=== PATIENT | male | born 1975 | race Caucasian/White ===

== ENCOUNTER 2019-12-31 09:04 | Emergency (ER) | payer OTHER, SELFPAY ==
--- NOTE | ~2019-12-31 | CT_ITS ---
EXAMINATION: CT abdomen pelvis wo con DATE: 12/31/2019 09:51 INDICATION: Low abdominal pain. TECHNIQUE: Computed tomography (CT) of the abdomen and pelvis was performed without intravenous contr ast. Automated exposure control and iterative reconstruction technique were employed. The dose-length product was 1285.31 mGy-cm. COMPARISON: CT abdomen and pelvis 07/14/2019 FINDINGS: The visualized portions of the lung bases demonstrate mild atelectasis. A calcified left ovidio ng nodule is consistent with old granulomatous disease. No pleural effusion. The heart size is normal . No pericardial effusion. There is wall thickening of the distal esophagus. The liver, gallbladder, spleen, pancreas, and adrenal glands are normal. There is a 3.9 cm cyst in left kidney. There are 4 s tones in right kidney measuring up to 3 mm. There is mild right hydronephrosis and hydroureter. There is a 5 mm stone in distal right ureter. There are two 2 mm stones in left kidney. There is an umbili kaiser hernia containing fat. There is prominent fat in the inguinal canals that may be small hernias. T here are scattered diverticula in the colon. There is wall thickening of the sigmoid colon with inter silvino improvement. There are no dilated loops of bowel. The appendix is normal. There are no pathologic ally enlarged lymph nodes. There is no free intraperitoneal fluid. There is mild thoracolumbar spondy losis. IMPRESSION: 1. 5 mm stone in distal right ureter with mild right hydronephrosis and hydroureter. 2. Bilateral nonobstructing kidney stones. 3. Chronic mild sigmoid diverticulitis with interval improvement. 4. Wall thickening of the distal esophagus, likely esophagitis. Reviewed, dictated and finalized at location A. IMPRESSION: 1. 5 mm stone in distal right ureter with mild right hydronephrosis and hydrour eter. 2. Bilateral nonobstructing kidney stones. 3. Chronic mild sigmoid diverticulitis with interval improvement. 4. Wall thickening of the distal esophagus, likely esophagitis.
[2019-12-31] MEDS: MORPHINE SULFATE 4 MG/ML INJ IV PUSH (09:25)
[2019-12-31 09:26] VITALS: BP 150/88; PULSE 80; RESP 20; TEMP 36.4; O2SAT 98
--- NOTE | 2019-12-31 09:30 | ECG_ITS ---
Measurements Intervals [place] Rate: 60 P: 46 ID: [id number] QRS: -16 QRSD: 125 T: 37 QT: 428 QTc: 430 Interpretive Statements SINUS RHYTHM RSR' IN V1 OR V2, CONSIDER RIGHT VENTRICULAR HYPERTROPHY OR RIGHT VCD BORDERLINE ECG Electronically Signed On 12-31-2019 15:25:43 CDT by Carl Alba D.O.
--- NOTE | 2019-12-31 09:40 | ED.ABDPAIN ---
HPI - Abdominal Pain General Chief Complaint: Abdominal Pain Stated Complaint: abdominal pain Source: patient Mode of arrival: ambulatory History of Present Illness HPI narrative: This is a 44-year-old male presents with a abdominal pain that started around 6 in the morning as constant right lower quadrant with no radiation, no nausea or vomiting no fever or chills. Has a history of diverticulitis with abscess and was seen at [facility] and had surgery involved for diverticulitis with abscess formation. Currently there is no chest pain no shortness of breath no diarrhea or constipation. Patient has a past medical history of GERD diverticulitis and and passing mentioned history of kidney stones. MD elicited complaint: abdominal pain Pertinent past history: diverticulitis Onset (ago): hour(s) Pain Consistency: constant Location: RLQ Severity: severe Pain scale (0-10): 10 Quality: aching Radiation: RLQ Migration to: no migration Exacerbating factors: nothing Relieving factors: nothing Related Data Allergies Allergy/AdvReac Type Severity Reaction Status Date / Time Contrast Media Allergy Unknown Swelling Uncoded 08/04/19 10:51 Shrimp Allergy Unknown LIPS SWELL Uncoded 07/25/19 09:31 Review of Systems Review of Systems: All systems reviewed & are unremarkable except as noted in HPI and below PMFSH Past Medical History Medical History Diverticulitis of large intestine with perforation and abscess without bleeding GERD (gastroesophageal reflux disease) Hypertension Previously on Lisinopril but no longer taking hyperventilates - lifestyle modification Surgical History Surgical History History of esophagogastroduodenoscopy (EGD) Family History Family History Mother Hypertension Asthma Father Hypertension Family history of elevated blood lipids Carcinoma of colon Family history of diabetes mellitus in first degree relative Social History Social History Smoking status: Never smoker Smokeless tobacco user: chewing tobacco Alcohol intake: never Substance use: never 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 [email or web address] Gender identity (if verbalized by the patient): Male Exam Const: General: no acute distress and alert Orientation/consciousness: patient oriented x3 HENMT: Head: normal to inspection Eyes: Conjunctivae: conjunctivae normal Pupils: Equal, round and reactive pupils present Neck: Neck: normal visual inspection Chest: Chest palpation & inspection: normal inspection of the chest Resp: Effort & Inspection: normal respiratory effort Auscultation: clear to auscultation bilaterally Cardio: Rate: regular rate Rhythm: regular rhythm GI: GI Palp: Yes Soft to palpation and Yes Tenderness to palpation present (GI) Auscultation: normal bowel sounds : Male General Exam: Yes normal external exam Testes: Testes normal Skin: General skin exam: normal color Rashes: no rashes Neuro: General: patient oriented x3, moves all extremities, no meningeal signs and no focal motor deficits Extrem: General: normal to inspection Psych: Appearance: grossly normal Mental Status: mental status grossly normal Thought content: Yes Normal thought content present Course Vital Signs Vital signs: Vital Signs Temperature 36.4 C 12/31/19 09:26 Pulse Rate 80 12/31/19 09:26 Respiratory Rate 20 12/31/19 09:26 Blood Pressure 150/88 H 12/31/19 09:26 Pulse Oximetry 98 12/31/19 09:26 Temperature 36.4 C 12/31/19 09:26 Pulse Rate 80 12/31/19 09:26 Respiratory Rate 20 12/31/19 09:26 Blood Pressure 150/88 H 12/31/19 09:26 Pulse Oximetry 98 12/31/19 09:26 MDM - Abdominal Pain ECG Data EKG #1: ECG completion date: 0
[2019-12-31 09:45] LABS: Hematocrit 43.8 % (40.0-54.0); Hemoglobin 15.5 g/dL (14.0-18.0); Mean Corpuscular HGB Conc 35.4 g/dL (32.0-36.0); Mean Corpuscular Hemoglobin 31.2 pg (27.0-31.0); Mean Corpuscular Volume 88.1 fL (78.0-102.0); Mean Platelet Volume 10.8 fl (8.7-11.0); Platelet Count Result 185 K/mm3 (150-420); Red Blood Count 4.97 M/mm3 (4.70-6.10); Red Cell Distribution Width 12.5 % (11.6-14.4); White Blood Count 6.6 K/mm3 (4.8-10.8)
[2019-12-31] MEDS: SODIUM CHLORIDE 0.9% IV 1,000 ML 999 ML IV CONT (09:51)
[2019-12-31 10:01] VITALS: BP 140/80; PULSE 76; RESP 20
[2019-12-31 10:02] LABS: Alanine Aminotransferase 35 U/L (16-63); Albumin Level 4.2 g/dL (3.4-5.0); Alkaline Phosphatase 68 U/L (46-116); Anion Gap 12.2 mmol/L (7-16); Aspartate Amino Transferase 18 U/L (15-37); Bilirubin,Total 0.5 mg/dL (0.00-1.00); Blood Urea Nitrogen 16 mg/dL (7-18); Calcium 9.2 mg/dL (8.5-10.1); Carbon Dioxide 26 mmol/L (21-32); Chloride 104 mmol/L (98-108); Estimated CRCL calculation 73 ml/min; Estimated Glomerular Filt Rate > 60; Glucose 139 mg/dL (70-99); Lactic Acid 2.3 mmol/L (0.4-2.0); Lipase 139 U/L (73-393); Osmolality Calculated 289 mOsm/kg (285-295); Potassium 4.2 mmol/L (3.5-5.1); Sodium 138 mmol/L (136-145); Total Protein 7.4 g/dL (6.4-8.2); Troponin I < 0.02 ng/mL (0.00-0.056)
[2019-12-31 10:07] LABS: Add Urine Microscopic? YES; Appearance Urine Clear (Clear); Bilirubin Urine Negative (Negative); Blood Urine 3+ (Negative); Color Urine Yellow (Yellow); Glucose Urine UA Negative (Negative); Ketones Urine Negative (Negative); Leukocyte Esterase Ur Negative LEU/UL (Negative); Nitrate Urine Negative (Negative); Protein Urine Negative (Negative); Specific Grav Ur >= 1.030 (1.010-1.020); Urobilinogen Urine 0.2 mg/dL (0.2-1.0)
[2019-12-31] MEDS: KETOROLAC 30 MG/ML VIAL (*BKC) IV PUSH (10:18)
[2019-12-31 10:19] LABS: Bacteria Urine 1+ /hpf; RBC Urine 21-50 /hpf (0-2); Squamous Epithelial Cell Urine None seen /hpf (Few); WBC Urine 0-3 /hpf (0-3)
--- NOTE | 2019-12-31 10:19 | PC.NURSE ---
toradol IVP given per mD orders, patient sleeping
[2019-12-31 10:20] LABS: Mucus Urine Moderate /lpf
[2019-12-31 10:30] VITALS: BP 130/66; PULSE 79; RESP 22; TEMP 36.4; O2SAT 100
== END 2019-12-31 10:32 | disposition home or self-care (01) ==
PROVIDERS: Emergency Provider Emergency Medicine; PCP Family Medicine
DX: N20.1 Calculus of ureter (principal)
CPT/HCPCS: 36415; 74176; 80053; 81001; 83605; 83690; 84484; 85027; 93005; 96361; 96374; 96375; 99284; J1885; J2270; J7030

== ENCOUNTER 2020-09-12 11:13 | Outpatient (CLI) | payer OTHER, SELFPAY ==
[2020-09-12 11:48] LABS: Basophils Absolute Auto 0.1 K/mm3 (0.0-0.1); Basophils Percent Auto 0.8 % (0.2-1.2); Eosinophils Absolute Auto 0.8 K/mm3 (0-0.3); Hematocrit 48.3 % (42.0-52.0); Hemoglobin 16.9 g/dL (14.0-18.0); Immature Granulocyte Absolute 0.02 K/mm3 (0.00-0.031); Immature Granulocyte Percent A 0.3 % (0-0.5); Lymphocytes Absolute Auto 1.71 K/mm3 (0.9-3.2); Lymphocytes Percent Auto 28.2 % (18.3-44.2); Mean Corpuscular Hemoglobin 31.4 pg (26-34); Mean Corpuscular Volume 89.8 fl (80-100); Mean Platelet Volume 10.8 fl (7.4-10.4); Monocytes Absolute Auto 0.4 K/mm3 (0.1-0.6); Monocytes Percent Auto 5.8 % (2.6-8.5); Neutrophils Absolute Auto 3.1 K/mm3 (1.3-6.7); Neutrophils Percent Auto 51.9 % (45.5-73.1); Platelet Count Result 190 k/mm3 (150-375); Red Blood Count 5.38 M/mm3 (4.6-6.20); Red Cell Distribution Width 12.8 % (11.5-14.5); White Blood Count 6.1 K/mm3 (4.5-10.0)
[2020-09-12 12:02] LABS: Alanine Aminotransferase 46 U/L (4-50); Albumin Level 4.5 g/dL (3.5-5.1); Alkaline Phosphatase 65 U/L (38-126); Anion Gap 7 mmol/L (8-16); Aspartate Amino Transferase 27 U/L (17-59); Bilirubin,Total 0.7 mg/dL (0.2-1.3); Blood Urea Nitrogen 17 mg/dL (9-20); Calcium 10.3 mg/dL (8.4-10.2); Carbon Dioxide 34 mmol/L (22-30); Chloride 100 mmol/L (98-107); Cholesterol 186 mg/dL (0-200); Estimated Glomerular Filt Rate > 60; Glucose 99 mg/dL (75-110); HDL Direct 29 mg/dL; Magnesium 2.2 mg/dL (1.6-2.3); Potassium 4.5 mmol/L (3.4-5.0); Sodium 141 mmol/L (137-145); Triglycerides 281 mg/dL (<150); Uric Acid 8.3 mg/dL (3.5-8.5)
[2020-09-12 12:13] LABS: LDL Cholesterol Direct 88 mg/dL
[2020-09-12 12:49] LABS: Hemoglobin A1C 5.3 % (<5.7)
== END 2020-09-12 11:14 | disposition home or self-care (01) ==
LOC: ANHLAB 11:15
PROVIDERS: PCP Family Medicine; Visit Provider Family Medicine
DX: N20.0 Calculus of kidney (principal); R73.9 Hyperglycemia, unspecified; I10 Essential (primary) hypertension; E78.2 Mixed hyperlipidemia; E79.0 Hyperuricemia without signs of inflammatory arthritis and tophaceous disease
CPT/HCPCS: 36415; 80053; 80061; 83036; 83735; 84550; 85025

== ENCOUNTER → 2021-01-12 01:16 | Outpatient (CLI) | payer OTHER, SELFPAY ==
[2021-01-13 00:40] LABS: SARS-CoV-2 RNA PCR Negative
== END ==
PROVIDERS: PCP Physician Assistant; Visit Provider Surgery
DX: Z01.812 Encounter for preprocedural laboratory examination (principal); Z20.822 Contact with and (suspected) exposure to COVID-19
CPT/HCPCS: C9803; U0003; U0005

== ENCOUNTER 2021-01-12 09:22 | Outpatient (CLI) | payer OTHER, SELFPAY | END 2021-01-12 09:23 | disposition home or self-care (01) | PROVIDERS: PCP Family Medicine; Visit Provider Anesthesiology | DX: K42.9 Umbilical hernia without obstruction or gangrene (principal); Z01.818 Encounter for other preprocedural examination | CPT/HCPCS: 36415; 86850; 86900; 86901 ==

== ENCOUNTER 2021-01-15 03:06 | Day surgery (SDC) | payer OTHER, SELFPAY ==
[2021-01-08 14:36] VITALS: BMI 36.8
[2021-01-15] VITALS (8 sets, daily range): BP systolic 109–142; BP diastolic 69–84; PULSE 57–81; RESP 12–18; TEMP 36.7–36.9; O2SAT 94–98
[2021-01-15] MEDS: LACTATED RINGERS 1,000 ML 30 ML IV CONT ×2 (06:40→10:06)
[2021-01-15] MEDS: KETOROLAC 15 MG/ML VIAL (*BKC) IV PUSH (06:46)
[2021-01-15] MEDS: ACETAMINOPHEN 500 MG TABLET 1000 MG PO (06:46)
--- NOTE | 2021-01-15 07:24 | WPDANESEPPF ---
Anes - Initial Pre Proc Eval Procedure: Operation Date: 01/15/21 08:30 Proposed Procedures p Laparoscopic Umbilical Hernia Repair With Mesh, Davinci Assisted - Enmanuel Swann DO Date/Time: 01/15/21 07:24 Surgeon: Enmanuel Swann DO Pre Op Diagnosis: umbilical hernia Patient Data Age: 45 Gender: M Height: 1.8 m Weight: 120 kg Allergies Allergy/AdvReac Type Severity Reaction Status Date / Time Shrimp Allergy Intermediate LIPS SWELL Uncoded 01/08/21 15:19 Contrast Media Allergy Mild Swelling Uncoded 01/08/21 15:19 Home Medications Medication Instructions Recorded Confirmed Type amlodipine 5 mg tablet 5 mg PO DAILY #90 tablet 11/19/20 01/08/21 Rx losartan 50 mg tablet 50 mg PO DAILY #90 tablet 11/19/20 01/08/21 Rx Patient hx anesthesia problems: none Family hx anesthesia problems: none PMFSH Past Medical History Medical History COVID-19 virus detected Diverticulitis of large intestine with perforation and abscess without bleeding GERD (gastroesophageal reflux disease) Gout History of kidney stones Hypertension Previously on Lisinopril but no longer taking hyperventilates - lifestyle modification Surgical History Surgical History History of colonoscopy History of esophagogastroduodenoscopy (EGD) Family History Family History Mother Hypertension Asthma Father Hypertension Family history of elevated blood lipids Carcinoma of colon Diabetes mellitus Grandparent Cerebrovascular accident Cancer Other Hypertension Social History Social History Social History: Tobacco type: smokeless tobacco Smokeless tobacco user: chewing tobacco Second hand tobacco smoke exposure: No Additional smoking assessment comments: chews tobacco x20yrs Alcohol intake: former Substance use: never Substance use type: does not use Living arrangements: with family 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 [employer] Gender identity (if verbalized by the patient): Male Sexual Orientation (if Verbalized by the Patient): Straight or Heterosexual Spiritual care concerns: No Anes - Eval Final PreProcedure Day of Procedure 01/15/21 07:24 Patient weight: obese Heart: regular rate and rhythm Lungs: clear to auscultation and normal air movement Airway: Mallampati scale class II Neurological: alert and oriented Last oral intake: >/= 8 hours ASA classification: III Emergent: no Anesthetic plan: proceed Anesthesia type and monitoring: general ETT and standard monitoring Informed Consent: The patient's anesthetic plan and its attendant risks and benefits were discussed with the patient/family/POA. Questions were solicited and answers provided to the satisfaction of the patient/family/POA.
--- NOTE | 2021-01-15 07:35 | WPDHPUPDATE1 ---
History and Physical Update Update Date/Time: 01/15/21 07:35 History and Physical has been reviewed, including an updated exam of the patient. There are NO changes in the patient's condition. Risks, benefits, and alternatives have been discussed and questions answered. Patient agrees to proceed with procedure.
[2021-01-15] MEDS: ceFAZolin 3 GM/D5W 100 ML 100 ML IVPB (07:48)
--- NOTE | 2021-01-15 09:22 | SUR.OPER ---
SYMBOTEX MESH UMBILICAL [id number], EXP 2025-05-21.
--- NOTE | 2021-01-15 10:00 | PM.PROC ---
Procedure Note - Detailed Date of procedure: 01/15/21 Pre-op diagnosis: umbilical hernia Post-op diagnosis: same Procedure performed: Laparoscopic umbilical hernia repair with Symbotex mesh, da Gurjit assisted Description of procedure: Procedure as well as risks, benefits, and alternatives were discussed with the patient. Written consent was obtained and placed in chart prior to procedure. Patient was brought back to surgical suite. He was placed supine on operating table. Time-out was done to confirm patient and procedure. He was then intubated by the anesthesia department. A bump was placed under his left hip, and the bed was flexed slightly to extend the space between his costal margin and iliac crest. His abdomen was prepped and draped in sterile fashion using chlorhexidine prep. A 5 millimeter incision was made in the left upper quadrant, and a 5 millimeter Optiview trocar was advanced through the abdominal layers under direct visualization. Once inside the abdominal cavity, carbon dioxide insufflation was used to create a pneumoperitoneum. His abdomen was inspected. An 8 millimeter incision was made in the left lower quadrant, and an 8 millimeter robotic trocar was placed under direct visualization. Another 8 millimeter incision was made in the left lateral abdomen, and an 8 millimeter robotic trocar was placed under direct visualization. Exparel was infiltrated along the lateral abdominal garcia to perform a transversus abdominis plane block bilaterally. The 5 millimeter port was removed, the incision was extended to 12 millimeters, and a 12 millimeter air seal port was placed under direct visualization. A Marshal-Damon cone was also used to place an 0-Vicryl simple interrupted suture at this trocar site. The robotic arms were brought up to the patient's bedside and secured to the ports. The camera and instruments were inserted, and I then moved over to the robotic console and took control of the camera and instruments. After careful thorough inspection of the abdominal cavity, I began my dissection at the hernia. A preperitoneal plane was dissected along the left lateral abdomen using scissors with electrocautery. The planning was continued towards the midline and then this was extended to the right lateral abdominal wall. The hernia sac was reduced along with the preperitoneal plane and a wide enough pocket was created for mesh placement. I then measured the hernia size. The hernia measured 2 cm x 2 cm. The fascia was closed using an 0-Stratafix running suture in a vertical fashion. A Symbotex 15cm x 10cm mesh was then placed within the preperitoneal pocket. This was oriented vertically with the mesh centered on the hernia defect. The mesh was then secured at the 4 corners using 2 0 Vicryl simple interrupted sutures. The repair was inspected, and one final inspection was made around the abdominal cavity. The peritoneum was then closed over the mesh using 3 0 V lock running absorbable suture. The robotic instruments were then removed, and the robotic arms were disengaged from the trocars. The ports were then removed under direct visualization, the camera was removed, and the pneumoperitoneum was released. The 0 Vicryl transfascial suture was tied down. The skin of the incisions was then approximated using 4-0 Monocryl subcuticular suture. Exofin glue was then applied on top. The patient was then awakened from anesthesia, extubated, and transferred to recovery. Anesthesia: GETA and local (Exparel) Surgeon: Enmanuel Swann DO Estimated blood loss (mL): 5 Pathology: none sent Complications: No immediate complications Condition: stable Disposition: same day Findings: Gelacio is a 45 y/o male who presents with an umbilical bulge. His symptoms started about 2 months ago. He reports experiencing pain that is constant but is worse after he's been working all day. the area becomes red, swollen, and more painful. He states the bulge reduces
[2021-01-15] MEDS: fentaNYL CITRATE INJ (*CRX) 100 MCG/2 ML VIAL 25 MCG IV PUSH ×2 (11:02→11:05)
[2021-01-15] MEDS: oxyCODONE HCL (*CRX) 5 MG TAB IR PO (11:40)
== END 2021-01-15 12:15 | disposition home or self-care (01) ==
PROVIDERS: PCP Family Medicine; Visit Provider Surgery
PROC: (CPT 49652; principal; 2021-01-15 08:30)
DX: K42.9 Umbilical hernia without obstruction or gangrene (principal); I10 Essential (primary) hypertension; E66.9 Obesity, unspecified; Z68.36 Body mass index [BMI] 36.0-36.9, adult; K21.9 Gastro-esophageal reflux disease without esophagitis; M10.9 Gout, unspecified; Z86.16 Personal history of COVID-19
CPT/HCPCS: 49652; S2900; A9270; C1781; C9290; J0690; J1100; J1170; J1885; J2250; J2405; J2704; J2710; J3010; J7030; J7120

== ENCOUNTER 2023-10-16 11:00 | Outpatient (CLI) | payer OTHER, SELFPAY ==
[2023-10-16 11:31] LABS: Basophils Percent Auto 0.8 % (0.2-1.2); Eosinophils Absolute Auto 0.5 K/mm3 (0-0.3); Hematocrit 45.2 % (42.0-52.0); Hemoglobin 15.4 g/dL (14.0-18.0); Immature Granulocyte Absolute 0.01 K/mm3 (0.00-0.031); Immature Granulocyte Percent A 0.2 % (0-0.5); Lymphocytes Absolute Auto 1.48 K/mm3 (0.9-3.2); Lymphocytes Percent Auto 27.9 % (18.3-44.2); Mean Corpuscular HGB Conc 34.1 g/dl (32-36); Mean Corpuscular Hemoglobin 31.4 pg (26-34); Mean Corpuscular Volume 92.1 fl (80-100); Mean Platelet Volume 10.7 fl (7.4-10.4); Monocytes Absolute Auto 0.4 K/mm3 (0.1-0.6); Monocytes Percent Auto 7.3 % (2.6-8.5); Neutrophils Absolute Auto 2.9 K/mm3 (1.3-6.7); Neutrophils Percent Auto 53.8 % (45.5-73.1); Platelet Count Result 207 k/mm3 (150-375); Red Blood Count 4.91 M/mm3 (4.6-6.20); White Blood Count 5.3 K/mm3 (4.5-10.0)
[2023-10-16 11:48] LABS: Hemoglobin A1C 6.2 % (<5.7)
[2023-10-16 12:33] LABS: Alanine Aminotransferase 89 U/L (6-50); Albumin Level 4.6 g/dL (3.5-5.1); Alkaline Phosphatase 79 U/L (38-126); Anion Gap 10 mmol/L (8-16); Aspartate Amino Transferase 67 U/L (17-59); Blood Urea Nitrogen 15 mg/dL (9-20); Calcium 9.6 mg/dL (8.4-10.2); Carbon Dioxide 27 mmol/L (22-30); Chloride 103 mmol/L (98-107); Estimated Glomerular Filt Rate > 60; Glucose 135 mg/dL (65-110); Sodium 140 mmol/L (137-145)
[2023-10-16 12:40] LABS: NT Pro B Type Natriuretic Pept < 20 pg/mL (19.9-100)
== END 2023-10-16 11:01 | disposition home or self-care (01) ==
LOC: ANHLAB 11:01
PROVIDERS: PCP Family Medicine; Visit Provider Physician Assistant
DX: R06.00 Dyspnea, unspecified (principal); I10 Essential (primary) hypertension; R73.9 Hyperglycemia, unspecified; M79.89 Other specified soft tissue disorders
CPT/HCPCS: 36415; 80053; 83036; 83880; 85025

== ENCOUNTER 2023-11-06 12:08 | Outpatient (CLI) | payer OTHER, SELFPAY ==
--- NOTE | 2023-11-06 12:42 | ECHO_ITS ---
Patient Info Name: Gelacio Boykin Age: 48 years : 1975 Gender: Male Ht: 71 in Wt: 290 lbs BSA: 2.62 m2 HR: 85 bpm BP: 151 / 76 mmHg Heart Rhythm: Sinus Rhythm Technical Quality: Fair Exam Date: 11/06/2023 12:53 PM Exam Location: Echo Lab Patient Status: Outpatient Admit Date: 11/06/2023 Staff Ordering Physician: Shandra Haddad MD Painter Airbrush: Muna Pena RDCS Attending Provider: Shandra Haddad MD Referring Physician: Catie BALDWIN; Exam Type: CA echo doppler color flow Study Info Indications - short of breath Complete two-dimensional, color flow and Doppler transthoracic echocardiogram is performed. Summary 1. Complete two-dimensional, color flow and Doppler transthoracic echocardiogram is performed. 2. Unremarkable 2D/Doppler echocardiogram. Left Ventricular Outflow Tract Name Value Normal LVOT 2D LVOT Diameter 2.1 cm LVOT Doppler LVOT Peak Gradient 4 mmHg LVOT Mean Gradient 2 mmHg LVOT VTI 18 cm LVOT VTI/AV VTI Ratio 0.7 LVOT Stroke Volume 66 ml LVOT CO 16.3 l/min LVOT CI 6.2 l/min/m2 Pulmonic Valve Name Value Normal PV Doppler PV Peak Gradient 4 mmHg Mitral Valve Name Value Normal MV Doppler MV Decel [place] 242 cm/s2 MV PHT 79 ms MV Area (PHT) 2.8 cm2 4.0-5.0 MV Diastolic Function MV E Peak Velocity 66 cm/s MV A Peak Velocity 67 cm/s MV E/A 1.0 MV Decel Time 271 ms Tricuspid Valve Name Value Normal TV Regurgitation Doppler TR Peak Velocity 246 cm/s TR Peak Gradient 24 mmHg Estimated PAP/RSVP RA Pressure 10 mmHg <=5 PA Systolic Pressure 34 mmHg <36 RV Systolic Pressure 34 mmHg <36 Aorta Name Value Normal -------
== END 2023-11-06 12:09 | disposition home or self-care (01) ==
LOC: ANHCARD 12:08
PROVIDERS: PCP Family Medicine; Visit Provider Family Medicine
DX: R06.02 Shortness of breath (principal); R01.1 Cardiac murmur, unspecified
CPT/HCPCS: 93306

== ENCOUNTER 2023-12-14 04:39 | Emergency (ER) | payer OTHER, SELFPAY ==
--- NOTE | ~2023-12-14 | CT_ITS ---
EXAMINATION: CT abdomen pelvis wo con DATE: 12/14/2023 05:07 INDICATION: Left lower quadrant abdominal pain. TECHNIQUE: Computed tomography (CT) of the abdomen and pelvis was performed without intravenous contr ast. Automated exposure control and iterative reconstruction technique were employed. The dose-length product was 1662.84 mGy-cm. COMPARISON: CT abdomen and pelvis 12/31/2019 FINDINGS: The visualized portions of the lung bases demonstrate mild scarring in paraspinal right low er lobe. A calcified left lower lobe nodule is consistent with old granulomatous disease. No pleural effusion. The heart size is normal. No pericardial effusion. There is a small sliding hiatal hernia. There is diffuse hepatic steatosis. The gallbladder, spleen, pancreas, and adrenal glands are normal. There is a 5.3 cm cyst in right kidney. There are approximately 9 stones in right kidney measuring u p to 5 mm. There are 2 stones in left kidney measuring up to 4 mm. There is mild left hydronephrosis and hydroureter. There is a 3 mm stone in distal left ureter. There is prominent fat in the inguinal canals that may be hernias. There is diverticulosis of the colon without evidence of diverticulitis. The appendix is normal. There are no dilated loops of bowel. There is mild thoracic and lumbar spondy losis. There are chronic compression fractures of T7-T10 vertebral bodies. IMPRESSION: 1. 3 mm stone in distal left ureter with mild left hydronephrosis and hydroureter. 2. Bilateral nonobstructing kidney stones. Reviewed, dictated and finalized at location E. IMPRESSION: 1. 3 mm stone in distal left ureter with mild left hydronephrosis and hydrouret er. 2. Bilateral nonobstructing kidney stones.
[2023-12-14 04:45] VITALS: BP 136/94; PULSE 92; RESP 24; TEMP 36.4; O2SAT 98
--- NOTE | 2023-12-14 04:50 | ED.ABDPAIN ---
HPI - Abdominal Pain General Chief Complaint: Abdominal Pain Stated Complaint: Abd Pain Time Seen by Provider: 12/14/23 04:49 Source: patient Mode of arrival: ambulatory Limitations: no limitations History of Present Illness HPI narrative: Patient is a 48-year-old male with left lower quadrant abdominal pain for the past day. Patient started to have left lower quadrant abdominal pain that radiates to the groin at times. MD elicited complaint: abdominal pain Pertinent past history: diverticulitis Onset (ago): day(s) (1) Pain Consistency: intermittent Location: LLQ and groin Severity: moderate Pain scale (0-10): 10 Quality: sharp Radiation: none Migration to: no migration Exacerbating factors: nothing Relieving factors: nothing Context: confirms history of similar episodes Associated symptoms: denies other symptoms Related Data Allergies Allergy/AdvReac Type Severity Reaction Status Date / Time Iodinated Contrast Media Allergy Mild Swelling Verified 12/14/23 04:46 Shrimp Allergy Intermediate LIPS SWELL Uncoded 12/14/23 04:46 Contrast Media Allergy Mild Swelling Uncoded 12/14/23 04:46 Review of Systems Review of Systems: All systems reviewed & are unremarkable except as noted in HPI and below Constitutional: Constitutional: Reports no additional constitutional complaints Eyes: Eyes: Reports no additional eye complaints ENT: Reports system reviewed and no additional complaints, except as documented Cardiovascular: Cardiovascular: Reports no additional cardiovascular complaints Respiratory: Respiratory: Reports no additional respiratory complaints Gastrointestinal: Gastrointestinal: Reports no additional gastrointestinal complaints Genitourinary: Genitourinary: Reports no additional male genitourinary complaints Musculoskeletal: Musculoskeletal: Reports no additional musculoskeletal complaints Integumentary/Breasts: Skin/Breast: Reports system reviewed and no additional complaints, except as docu Neurologic: Reports system reviewed and no additional complaints, except as documented Psychiatric: Psychiatric: Reports no additional psychiatric complaints Endocrine: Endocrine: Reports no additional endocrine complaints Hematologic/Lymphatic: Hematologic/Lymphatic: Reports no additional hematologic/lymphatic complaints Allergic/Immunologic: Allergic/Immunologic: Reports no additional allergic/immunologic complaints PMFSH Past Medical History Medical History COVID-19 virus detected Diverticulitis of large intestine with perforation and abscess without bleeding GERD (gastroesophageal reflux disease) Gout History of kidney stones Hypertension Previously on Lisinopril but no longer taking hyperventilates - lifestyle modification Surgical History Surgical History H/O umbilical hernia repair 01/15/21 Laparoscopic umbilical hernia repair with Symbotex mesh, da Gurjit assisted History of colonoscopy History of esophagogastroduodenoscopy (EGD) Family History Family History Mother Hypertension Asthma Father Hypertension Family history of elevated blood lipids Carcinoma of colon Diabetes mellitus Grandparent Cerebrovascular accident Cancer Other Hypertension Social History Social History Social History: Smoking status: Current every day smoker Tobacco type: smokeless tobacco Smokeless tobacco user: chewing tobacco Second hand tobacco smoke exposure: No Additional smoking assessment comments: chews tobacco x20yrs Alcohol intake: former Substance use: never Substance use type: does not use Do You Feel Safe in your Home?: Yes Lack of Transportation: No Lack of Food: Never True Current Housing: I Have Housing Concerned About Future Housing: No [place]
--- NOTE | 2023-12-14 04:55 | PC.NURSE ---
Lab contacted and aware specimens are in lab.
[2023-12-14 05:12] LABS: Hematocrit 44.9 % (40.0-54.0); Hemoglobin 15.5 g/dL (14.0-18.0); Mean Corpuscular HGB Conc 34.5 g/dL (32-36); Mean Corpuscular Hemoglobin 30.8 pg (27.0-31.0); Mean Corpuscular Volume 89.1 fL (78.0-102.0); Mean Platelet Volume 11.2 fl (8.7-11.0); Platelet Count Result 180 K/mm3 (150-420); Red Blood Count 5.04 M/mm3 (4.70-6.10); Red Cell Distribution Width 12.5 % (11.6-14.4)
[2023-12-14] MEDS: MORPHINE SULFATE (*CRX) 2 MG/ML INJ IV PUSH (05:17)
[2023-12-14] MEDS: ONDANSETRON INJ 4 MG/2 ML VIAL IV PUSH (05:18)
[2023-12-14 05:29] LABS: Appearance Urine Clear (Clear); Bilirubin Urine Negative (Negative); Blood Urine Trace-intact (Negative); Color Urine Yellow (Yellow); Glucose Urine UA Negative (Negative); Ketones Urine Negative (Negative); Leukocyte Esterase Ur Negative (Negative); Nitrate Urine Negative (Negative); Protein Urine Negative (Negative); Specific Grav Ur >= 1.030 (1.010-1.020); Urobilinogen Urine 0.2 mg/dL (0.2-1.0)
[2023-12-14] MEDS: KETOROLAC 30 MG/ML VIAL (*BKC) IV PUSH (05:31)
[2023-12-14 05:34] VITALS: BP 148/97; PULSE 89; RESP 24; O2SAT 99
[2023-12-14 05:35] LABS: Lactic Acid Reflex 1.7 mmol/L (0.4-2.0)
[2023-12-14 05:41] LABS: Alanine Aminotransferase 103 U/L (16-63); Albumin Level 4.2 g/dL (3.4-5.0); Alkaline Phosphatase 76 U/L (46-116); Anion Gap 12 mmol/L (8-16); Aspartate Amino Transferase 36 U/L (15-37); Bilirubin,Total 0.8 mg/dL (0.00-1.00); Blood Urea Nitrogen 16 mg/dL (7-18); Calcium 9.1 mg/dL (8.5-10.1); Carbon Dioxide 29 mmol/L (21-32); Chloride 98 mmol/L (98-108); Estimated Glomerular Filt Rate > 60; Glucose 167 mg/dL (70-99); Lipase 38 U/L (16-77); Osmolality Calculated 293 mOsm/kg (285-295); Potassium 3.2 mmol/L (3.5-5.1); Sodium 139 mmol/L (136-145); Total Protein 7.4 g/dL (6.4-8.2)
[2023-12-14 05:46] VITALS: BP 131/75; PULSE 76; RESP 22; O2SAT 97
[2023-12-14 05:47] LABS: Add Urine Microscopic? YES; RBC Urine 0-2 /hpf (0-2)
[2023-12-14] MEDS: SODIUM CHLORIDE 0.9% IV 1,000 ML 999 ML IV CONT (05:56)
[2023-12-14] MEDS: POTASSIUM CHLORIDE 20 MEQ ER TABLET PO (05:56)
[2023-12-14] MEDS: TAMSULOSIN HCL 0.4 MG CAPSULE PO (05:58)
[2023-12-14 06:09] LABS: Band Neutrophils Percent 0 % (0-6); Basophils Absolute Manual 0.06 K/mm3 (0-0.1); Basophils Percent Manual 1 % (0-1); Eosinophils Absolute Manual 0.48 K/mm3 (0.02-0.50); Eosinophils Percent Manual 8 % (1-6); Lymphocytes Absolute Manual 1.38 K/mm3 (1.1-4.5); Lymphocytes Percent Manual 23 % (18-44); Monocytes Absolute Manual 0.54 K/mm3 (0.1-0.90); Monocytes Percent Manual 9 % (3-9); Neutrophils Absolute Manual 3.54 K/mm3 (1.3-6.7); Neutrophils Percent Manual 59 % (46-73); Total Cells Counted 100
[2023-12-14 06:15] LABS: Platelet Estimate Adequate (Adequate)
[2023-12-14] MEDS: methylPREDNISolone SOD SUCC 40 MG VIAL IV PUSH (06:19)
--- NOTE | 2023-12-14 06:50 | PC.NURSE ---
IV fluids complete. Pt states pain remains 9 out of 10. ERP aware additional pain medication ordered.
[2023-12-14] MEDS: HYDROmorphone HCL INJ (*CRX) 2 MG/ML VIAL 0.5 MG IV PUSH (06:55)
--- NOTE | 2023-12-14 07:02 | PC.NURSE ---
Report to ADAMARIS Hills who assumes care at this time.
[2023-12-14 07:12] VITALS: BP 142/86; PULSE 90; RESP 20; O2SAT 90
[2023-12-14 07:49] VITALS: BP 142/79; PULSE 82; RESP 20; TEMP 36.7; O2SAT 91
== END 2023-12-14 07:49 | disposition home or self-care (01) ==
PROVIDERS: Emergency Provider Emergency Medicine; PCP Family Medicine
DX: N13.2 Hydronephrosis with renal and ureteral calculous obstruction (principal); F17.220 Nicotine dependence, chewing tobacco, uncomplicated; Z79.82 Long term (current) use of aspirin
CPT/HCPCS: 36415; 74176; 80053; 81001; 83605; 83690; 85025; 96361; 96374; 96375; 99284; A9270; J1170; J1885; J2270; J2405; J2920; J7030

== ENCOUNTER 2023-12-18 09:38 | Outpatient (CLI) | payer OTHER, SELFPAY ==
--- NOTE | ~2023-12-18 | US_ITS ---
EXAMINATION: US art doppler w press LE DATE: 12/18/2023 15:34 INDICATION: Peripheral vascular disease, unspecified. TECHNIQUE: Segmental pressures and plethysmographic and Doppler waveforms of the brachial and lower e xtremity arteries were obtained. COMPARISON: None. FINDINGS: Right and left brachial artery pressures of 139 mm Hg and 135 mm Hg, respectively, are concordant (no rmal difference <= 30 mmHg). The right thigh pressures could not be measured due to inability to cuff occlude the arteries. The ri t ankle-brachial index (KEN) is 1.13 (normal >= 0.9-1.0). The right great toe-brachial index (TBI) is 0.77 (normal >= 0.65). Arterial Doppler waveforms are at least triphasic from common femoral arter y to posterior tibial artery and biphasic in dorsalis pedis. The left thigh pressures could not be measured due to inability to cuff occlude the arteries. The lef t KEN is 1.22. The left TBI is 0.76. Arterial Doppler waveforms are at least triphasic from common fe moral artery to the ankle. IMPRESSION: 1. No significant arterial occlusive disease. Reviewed, dictated and finalized at location E.
[2023-12-18 10:25] LABS: Alanine Aminotransferase 75 U/L (6-50); Albumin Level 4.7 g/dL (3.5-5.1); Alkaline Phosphatase 66 U/L (38-126); Anion Gap 9 mmol/L (4-12); Aspartate Amino Transferase 40 U/L (17-59); Blood Urea Nitrogen 17 mg/dL (9-20); Calcium 10.2 mg/dL (8.4-10.2); Carbon Dioxide 31 mmol/L (22-30); Chloride 100 mmol/L (98-107); Cholesterol 172 mg/dL (0-200); Estimated Glomerular Filt Rate > 60; Glucose 122 mg/dL (65-110); HDL Direct 31 mg/dL; Potassium 3.7 mmol/L (3.4-5.0); Sodium 140 mmol/L (137-145); Triglycerides 182 mg/dL (<150)
[2023-12-18 10:36] LABS: LDL Cholesterol Direct 114 mg/dL
== END 2023-12-18 09:39 | disposition home or self-care (01) ==
LOC: ANHIMG 09:39
PROVIDERS: Internal Medicine Cardiovascular Disease; PCP Family Medicine; Visit Provider Physician Assistant
DX: I73.9 Peripheral vascular disease, unspecified (principal); I10 Essential (primary) hypertension
CPT/HCPCS: 36415; 80053; 80061; 84443; 93923

== ENCOUNTER 2023-12-24 08:37 | Outpatient (CLI) | payer OTHER, SELFPAY ==
--- NOTE | ~2023-12-24 | NM_ITS ---
EXAMINATION: NM stress w perf spect multi DATE: 12/24/2023 11:22 INDICATION: Abnormal electrocardiogram. TECHNIQUE: Rest images were obtained following intravenous administration of 9.1 mCi Tc99m tetrofosmi n ([employer]). The patient performed an exercise activity. At peak exercise, 30.0 mCi Tc99m tetrofosmin ([employer]) was administered intravenously, and supine and prone stress images were obtained. Data was reconstructed into short axis and horizontal and vertical long axis SPECT images. Gated SPECT images were also obtained. COMPARISON: None. FINDINGS: There is no definite reversible or fixed perfusion abnormality to suggest ischemia or infar ction. There is no segmental wall motion abnormality. Left ventricular ejection fraction measures > 70%. IMPRESSION: 1. No definite ischemia or infarct. 2. Normal left ventricular ejection fraction measuring >70%. Reviewed, dictated and finalized at location A.
--- NOTE | 2023-12-24 08:51 | EST_ITS ---
Patient Info Name: Gelacio Boykin Age: 48 years : 1975 Gender: Male Ht: 68 in Wt: 280 lbs BSA: 2.53 m2 HR: 78 bpm BP: 114 / 66 mmHg Heart Rhythm: Sinus Rhythm Exam Date: 12/24/2023 9:47 AM Exam Location: Echo Lab Patient Status: Outpatient Admit Date: 12/24/2023 Staff Ordering Physician: Michelle Devlin PA-C Attending Provider: Michelle Devlin PA-C Exercise Technologist: Yvette Dillon CT Exercise Physician: Carl Alba DO Exam Type: CA stress test treadmill w NM Study Info Indications R94.31 - Abnormal electrocardiogram ECG EKG I25.110 - Atherosclerotic heart disease of [place] coronary artery with unstable angina pectoris A nuclear stress test was performed. Summary 1. 1. Negative Jason exercise stress test for ischemic ST changes by ECG criteria. 2. 2. Reduced functional capacity, achieving 8 METs of workload. 3. 3. Baseline hypertension. 4. 4. Appropriate HR response to exercise. 5. 5. Appropriate HR recovery at 1 minute post exercise. 6. 6. Nuclear scan to follow and will be reported separately. Please correlate with it. 7. 7. Patient informed of the above results. Protocol: Jason Stress ECG Details Stage: REST Duration (min): 1 min : 25 sec Speed (mph): 0.0 Grade (%): 0 HR (bpm): 78 SBP (mmHg): 114 DBP (mmHg): 66 METS: --- Stage: REST Duration (min): 6 min : 46 sec Speed (mph): 0.0 Grade (%): 0 HR (bpm): 81 SBP (mmHg): 114 DBP (mmHg): 66 METS: --- Stage: STAGE 1 Duration (min): 1 min : 0 sec Speed (mph): 1.7 Grade (%): 10 HR (bpm): 109 SBP (mmHg): 114 DBP (mmHg): 66 METS: --- Stage: STAGE 1 Duration (min): 2 min : 0 sec Speed (mph): 1.7 Grade (%): 10 HR (bpm): 125 SBP (mmHg): 114 DBP (mmHg): 66 METS: --- Stage: STAGE 1 Duration (min): 3 min : 0 sec Speed (mph): 1.7 Grade (%): 10 HR (bpm): 125 SBP (mmHg): 190 DBP (mmHg): 87 METS: --- Stage: STAGE 2 Duration (min): 1 min : 0 sec Speed (mph): 2.5 Grade (%): 12 HR (bpm): 134 SBP (mmHg): 190 DBP (mmHg): 87 METS: --- Stage: STAGE 2 Duration (min): 2 min : 0 sec Speed (mph): 2.5 Grade (%): 12 HR (bpm): 146 SBP (mmHg): 175 DBP (mmHg): 89 METS: --- Stage: STAGE 2 Duration (min): 3 min : 0 sec Speed (mph): 2.5 Grade (%): 12 HR (bpm): 151 SBP (mmHg): 175 DBP (mmHg): 89 METS: --- Stage: STAGE 3 Duration (min): 0 min : 30 sec Speed (mph): 3.4 Grade (%): 14 HR (bpm): 155 SBP (mmHg): 175 DBP (mmHg): 89 METS: --- Stage: RECOVERY Duration (min): 0 min : 29 sec Speed (mph): 0.0 Grade (%): 0 HR (bpm): 155 SBP (mmHg): 169 DBP (mmHg): 84 METS: --- Stage: RECOVERY Duration (min): 1 min : 29 sec Speed (mph): 0.0 Grade (%): 0 HR (bpm): 120 SBP (mmHg): 169 DBP (mmHg): 84 METS: --- Stage: RECOVERY Duration (min): 2 min : 29 sec Speed (mph): 0.0 Grade (%): 0 HR (bpm): 111 SBP (mmHg): 169 DBP (mmHg): 84 METS
== END 2023-12-24 08:38 | disposition home or self-care (01) ==
LOC: ANHCARD 08:39
PROVIDERS: PCP Family Medicine; Visit Provider Physician Assistant
DX: R07.9 Chest pain, unspecified (principal); R94.31 Abnormal electrocardiogram [ECG] [EKG]
CPT/HCPCS: 78452; 93017; A9502

== ENCOUNTER 2024-05-02 20:22 | Emergency (ER) | payer OTHER, SELFPAY ==
--- NOTE | ~2024-05-02 | CT_ITS ---
EXAMINATION: CT abdomen pelvis wo con DATE: 05/02/2024 20:53 INDICATION: EPIGASTRIC PAIN/HX OF HERNIA,DIVERTICULITIS AND KIDNEY STONE TECHNIQUE: Computed tomography (CT) of the abdomen and pelvis was performed with intravenous contrast . Automated exposure control and iterative reconstruction technique were employed. The dose-length pr oduct was 1446.23 mGy-cm. COMPARISON: 12/14/2023. FINDINGS: Lower thorax: Calcified left lower lobe granuloma/hamartoma. Bibasilar scarring. Liver: Hepatomegaly. Diffuse fatty infiltration. Biliary/Gallbladder: Gallbladder is normal. No bile duct dilation. Pancreas: No mass or duct dilation. Spleen: Diffusely enlarged. Adrenals:No mass. Kidneys: Multiple bilateral nonobstructing calculi. 5.4 cm right upper pole simple cyst. GI tract: Severe proximal small bowel dilation with a discrete transition point in the mid abdomen (a xial image 128/227). Hyperemia of the vasa recta and interloop fluid. No pneumatosis. Normal appendix . Diverticulosis without diverticulitis. Mesentery/Peritoneum: Moderate volume ascites. No free air. Retroperitoneum: No mass. Pelvis: Partially distended urinary bladder with moderate surrounding stranding. Soft Tissues: Soft tissues and body wall unremarkable. Bones: No acute osseous finding. IMPRESSION: Hepatosplenomegaly with hepatic steatosis. Severe proximal small bowel obstruction. Moderate ascites. Urinary bladder inflammatory changes may reflect cystitis, correlate with urinalysis. Reviewed, dictated and finalized at location K. IMPRESSION: Hepatosplenomegaly with hepatic steatosis. Severe proximal small bowel obstruction. Moderate ascites. Urinary bladder inflammatory changes may reflect cystitis, correlate with urina lysis.
[2024-05-02 20:25] VITALS: BP 155/97; PULSE 96; RESP 18; TEMP 36.1; O2SAT 97
--- NOTE | 2024-05-02 20:43 | ED.GENADULT ---
HPI - General Adult General Chief complaint: Abdominal Pain Stated complaint: abdominal pain Time Seen by Provider: 05/02/24 20:38 Source: patient and family Mode of arrival: ambulatory Limitations: no limitations History of Present Illness HPI narrative: 49-year-old white male complains of abdominal pain for last 3 days has been intermittent now is constant it is worse today he had out of 10 in severity stabbing aching the center of his belly he has been a little constipated did not take anything for pain heat made it worse he did not take any other medications for pain he has had this before 2 or 3 years ago when he had diverticulitis. Nothing seems to make it better. Denies any nausea he had 1 emesis was some liquid this morning but no blood. He has had a little liquidy stool today he has had less stool than usual. Denies any fever cough runny nose sore throat he was a little dizzy earlier. Denies any swelling rash or itching bleeding or bruising melanotic stools or any other complaints. Related Data Home Medications Medication Instructions Recorded Confirmed hydrochlorothiazide 25 mg tablet 25 mg PO DAILY 05/02/24 05/02/24 Allergies Allergy/AdvReac Type Severity Reaction Status Date / Time Iodinated Contrast Media Allergy Mild Swelling Verified 04/29/24 15:51 Shrimp Allergy Intermediate LIPS SWELL Uncoded 04/29/24 15:51 Contrast Media Allergy Mild Swelling Uncoded 04/29/24 15:51 Review of Systems Review of Systems: All systems reviewed & are unremarkable except as noted in HPI and below PMFSH Past Medical History Medical History COVID-19 virus detected Diverticulitis of large intestine with perforation and abscess without bleeding GERD (gastroesophageal reflux disease) Gout History of kidney stones Hypertension Previously on Lisinopril but no longer taking hyperventilates - lifestyle modification Surgical History Surgical History H/O umbilical hernia repair 01/15/21 Laparoscopic umbilical hernia repair with Symbotex mesh, da Gurjit assisted History of colonoscopy History of esophagogastroduodenoscopy (EGD) Family History Family History Mother Hypertension Asthma Father Hypertension Family history of elevated blood lipids Carcinoma of colon Diabetes mellitus Grandparent Cerebrovascular accident Cancer Other Hypertension Social History Social History Social History: Smoking status: Never smoker Tobacco type: smokeless tobacco Smokeless tobacco user: chewing tobacco Second hand tobacco smoke exposure: No Additional smoking assessment comments: chews tobacco x20yrs Alcohol intake: former Substance use: never Substance use type: does not use Do You Feel Safe in your Home?: Yes Lack of Transportation: No Lack of Food: Never True Current Housing: I Have Housing Concerned About Future Housing: No Difficulty Paying Gas/Electric Bills: No Difficulty Paying for Meds: No Currently Unemployed: No Education: Don't Know Difficulty w/ Childcare or Family Care: No Living arrangements: with family Occupation/Education: occupation 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 Head normocephalic, atraumatic.? Eyes conjunctiva pink sclera nonicteric.? Extraocular movements are intact.? Ears externally normal.? Oropharynx is clear with moist mucous membranes without exudates.? Neck is supple nontender no lymphadenopathy.? Back is nontender.? Lungs are clear.? Heart is regular rate a
--- NOTE | 2024-05-02 21:08 | PC.NURSE ---
pt notified a urine sample was needed. handed urinal and attempting to go now
--- NOTE | 2024-05-02 21:10 | PC.NURSE ---
Discussed POC for transfer w/ pt. Pt has seen Dr Whitmore at [facility] in past and wants tranfer back there.
--- NOTE | 2024-05-02 21:10 | PC.NURSE ---
lab in room to draw blood. urine specimen handed to lab
[2024-05-02] MEDS: KETOROLAC 30 MG/ML VIAL (*BKC) IV PUSH (21:11)
[2024-05-02] MEDS: SODIUM CHLORIDE 0.9% IV 1,000 ML 150 ML IV CONT (21:31)
[2024-05-02 21:53] LABS: Add Urine Microscopic? YES; Appearance Urine Clear (Clear); Bilirubin Urine 1+ (Negative); Blood Urine Negative (Negative); Color Urine Yellow (Yellow); Glucose Urine UA Negative (Negative); Ketones Urine Negative (Negative); Leukocyte Esterase Ur Negative LEU/UL (Negative); Nitrate Urine Negative (Negative); Protein Urine Negative (Negative); Specific Grav Ur 1.025 (1.010-1.020); Urobilinogen Urine 0.2 mg/dL (0.2-1.0)
[2024-05-02 21:55] LABS: Hematocrit 47.8 % (40.0-54.0); Hemoglobin 16.7 g/dL (14.0-18.0); Mean Corpuscular HGB Conc 34.9 g/dL (32-36); Mean Corpuscular Hemoglobin 31.2 pg (27.0-31.0); Mean Corpuscular Volume 89.2 fL (78.0-102.0); Mean Platelet Volume 11.6 fl (8.7-11.0); Platelet Count Result 230 K/mm3 (150-420); Red Blood Count 5.36 M/mm3 (4.70-6.10); Red Cell Distribution Width 12.6 % (11.6-14.4); White Blood Count 9.7 K/mm3 (4.8-10.8)
[2024-05-02] MEDS: ONDANSETRON INJ 4 MG/2 ML VIAL IV PUSH (21:55)
[2024-05-02] MEDS: MORPHINE SULFATE (*CRX) 4 MG/ML INJ IV PUSH (21:55)
[2024-05-02 21:58] LABS: Bacteria Urine Trace /hpf; Mucus Urine Moderate /lpf; RBC Urine None seen /hpf (0-2); Squamous Epithelial Cell Urine Rare /hpf (Few); WBC Urine None seen /hpf (0-3)
[2024-05-02 22:07] LABS: Alanine Aminotransferase 71 U/L (16-63); Albumin Level 3.8 g/dL (3.4-5.0); Alkaline Phosphatase 72 U/L (46-116); Anion Gap 10 mmol/L (4-12); Aspartate Amino Transferase 37 U/L (15-37); Bilirubin,Total 1.1 mg/dL (0.00-1.00); Blood Urea Nitrogen 14 mg/dL (7-18); Carbon Dioxide 28 mmol/L (21-32); Chloride 99 mmol/L (98-108); Estimated CRCL calculation 106 ml/min; Estimated Glomerular Filt Rate > 60; Glucose 140 mg/dL (70-99); Lipase 39 U/L (16-77); Osmolality Calculated 286 mOsm/kg (285-295); Potassium 3.1 mmol/L (3.5-5.1); Sodium 137 mmol/L (136-145)
[2024-05-02 22:12] LABS: Lactic Acid Reflex 0.9 mmol/L (0.4-2.0)
[2024-05-02 22:28] VITALS: BP 143/92; O2SAT 95
[2024-05-02 22:31] VITALS: BP 142/88; PULSE 96; RESP 20; O2SAT 94
[2024-05-02] MEDS: POTASSIUM CHLORIDE 20 MEQ ER TABLET 40 MEQ PO (22:45)
--- NOTE | 2024-05-02 22:59 | PC.NURSE ---
Pt has been accepted buy Dr Kitchen for transfer to [place]. Reports called, paperwork signed.
[2024-05-02 23:22] VITALS: BP 136/88; PULSE 87; RESP 18; TEMP 36.2; O2SAT 95
== END 2024-05-02 23:22 | disposition short-term general hospital (02) ==
PROVIDERS: Emergency Provider Emergency Medicine; PCP Family Medicine
DX: K56.600 Partial intestinal obstruction, unspecified as to cause (principal); E87.6 Hypokalemia; I10 Essential (primary) hypertension
CPT/HCPCS: 36415; 74176; 80053; 81001; 83605; 83690; 85027; 96361; 96374; 96375; 99285; A9270; J1885; J2270; J2405; J7030

== ENCOUNTER 2024-05-03 00:36 | Inpatient (IN) | payer OTHER, SELFPAY ==
--- NOTE | ~2024-05-03 | XR_ITS ---
EXAMINATION: XR abdomen/kub 1V DATE: 05/03/2024 08:18 INDICATION: Small bowel obstruction. TECHNIQUE: A supine view of the abdomen on 3 radiographs was obtained. COMPARISON: CT abdomen and pelvis 05/02/2024 FINDINGS: There are no dilated loops of proximal small bowel.. There is a small volume of stool in th e colon. IMPRESSION: 1. Dilated proximal small bowel, consistent with adynamic ileus versus small bowel obstruction. Reviewed, dictated and finalized at location A. IMPRESSION: 1. Dilated proximal small bowel, consistent with adynamic ileus versus small kike wel obstruction.
--- NOTE | ~2024-05-03 | XR_ITS ---
XR abdomen/kub 1V Ordering provider: Gege Schofield APRN History: . SBO . Comparison: May 03, 2024 FINDINGS: BOWEL: Nonobstructive bowel gas pattern. ORGANOMEGALY: None. SIGNIFICANT PATHOLOGIC CALCIFICATIONS: Bilateral kidney calcifications are seen suggestive of stones OTHER: No free air is seen under the diaphragm. IMPRESSION: NO ACUTE ABDOMINAL FINDINGS. Bilateral kidney stones. Reviewed, dictated and finalized at location A.
--- NOTE | 2024-05-03 00:16 | ADMGEN ---
This patient, Gelacio Boykin, was admitted to [facility] Surg Room 311-01. Patient/family oriented to hospital policies and general routines including ID bracelet, bed and alarms, visiting hours, pain management, procedures, bathroom and other care routines, personal items, smoking policy, room service/diet, and visiting hours. Information on how to activate the Rapid Response Team has been discussed. Patient/Family are encouraged to report perceived risks to care and to ask questions if they do not understand what they are told or what they should do.
[2024-05-03 00:17] VITALS: BMI 40.9
[2024-05-03 00:18] VITALS: BP 142/79; PULSE 87; RESP 18; TEMP 36.6; O2SAT 97
[2024-05-03] MEDS: HYDROmorphone HCL INJ (*CRX) 1 MG/ML SYR IV PUSH ×4 (00:53→18:08)
[2024-05-03] MEDS: DEXTROSE 5%/0.45% SOD CHL 1,000 ML 100 ML IV CONT ×3 (00:59→20:46)
[2024-05-03 01:19] LABS: INR 1.1; Partial Thromboplastin Time 25.3 Seconds (22.3-36.8); Prothrombin Time 15.1 Seconds (11.1-14.7)
[2024-05-03 01:21] LABS: Magnesium 2.1 mg/dL (1.6-2.3); Phosphorus 3.7 mg/dL (2.5-4.5)
[2024-05-03 01:23] LABS: Lactic Acid Reflex 0.8 mmol/L (0.7-2.0)
[2024-05-03 06:00] VITALS: BP 135/66; PULSE 63; RESP 16; TEMP 36.1; O2SAT 97
--- NOTE | 2024-05-03 07:13 | PM.IMHP ---
H&P: HPI History of Present Illness Date/Time: 05/03/24 07:13 Chief Complaint: Abdominal pain Narrative: This is a 49-year-old gentleman with past medical history significant for diverticulitis, hypertension and umbilical hernia repair who presented to [facility] 05/02 with complaints of abdominal pain. The patient provides the following history. On Thursday he developed generalized abdominal pain to his left lower and right lower quadrant. The last thing he ate was on Thursday night which was a cheeseburger from [employer]. He reports 1 episode of nausea and vomiting with clear emesis. His last bowel movement was yesterday which was yellow and watery. He also reports a headache. He has had similar pain to this 4 years ago when he was treated for diverticulitis requiring hospitalization with IV antibiotics. He lives at home with his and 2 children and denies any recent sick contacts. On exam he is resting in bed and appears to feel unwell. He has moderate tenderness to the left and right lower quadrants to palpation. He denies dizziness, chest pain, shortness a breath, sore throat, fever, or chills. In the emergency room labs were fairly unremarkable apart from T bili 1.1 and ALT 71. Urinalysis showed specific gravity 1.025, +1 bilirubin, moderate mucus present. CT of abdomen and pelvis showed hepatosplenomegaly with hepatic steatosis, severe proximal small-bowel obstruction, moderate ascites, and urinary bladder inflammatory changes. Given concerns for small-bowel obstruction he was transferred to [facility] for further workup and possible surgical consult. Review of Systems Review of Systems: All systems reviewed & are unremarkable except as noted in HPI and below PMFSH Past Medical History Medical History COVID-19 virus detected Diverticulitis of large intestine with perforation and abscess without bleeding GERD (gastroesophageal reflux disease) Gout History of kidney stones Hypertension Previously on Lisinopril but no longer taking hyperventilates - lifestyle modification Surgical History Surgical History H/O umbilical hernia repair 01/15/21 Laparoscopic umbilical hernia repair with Symbotex mesh, da Gurjit assisted History of colonoscopy History of esophagogastroduodenoscopy (EGD) Family History Family History Mother Hypertension Asthma Father Hypertension Family history of elevated blood lipids Carcinoma of colon Diabetes mellitus Grandparent Cerebrovascular accident Cancer Other Hypertension Social History Social History Social History: Smoking status: Never smoker Tobacco type: smokeless tobacco Smokeless tobacco user: chewing tobacco Second hand tobacco smoke exposure: No Additional smoking assessment comments: chews tobacco x20yrs Alcohol intake: never Substance use: never Substance use type: does not use Do You Feel Safe in your Home?: Yes Lack of Transportation: No Lack of Food: Never True Current Housing: I Have Housing Concerned About Future Housing: No Difficulty Paying Gas/Electric Bills: No Difficulty Paying for Meds: No Currently Unemployed: No Education: Don't Know Difficulty w/ Childcare or Family Care: No Living arrangements: with family Occupation/Education: occupation 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
[2024-05-03] MEDS: ENOXAPARIN 40 MG/0.4 ML SYRINGE SUB-Q (08:21)
[2024-05-03 08:57] LABS: Basophils Absolute Auto 0.1 K/mm3 (0.0-0.1); Basophils Percent Auto 0.6 % (0.2-1.2); Eosinophils Absolute Auto 2.1 K/mm3 (0-0.3); Eosinophils Percent Auto 26.2 % (0-4.4); Hematocrit 46.8 % (42.0-52.0); Hemoglobin 15.8 g/dL (14.0-18.0); Immature Granulocyte Absolute 0.03 K/mm3 (0.00-0.031); Immature Granulocyte Percent A 0.4 % (0-0.5); Lymphocytes Percent Auto 21.3 % (18.3-44.2); Mean Corpuscular HGB Conc 33.8 g/dl (32-36); Mean Corpuscular Hemoglobin 31.7 pg (26-34); Mean Corpuscular Volume 93.8 fl (80-100); Mean Platelet Volume 11.4 fl (7.4-10.4); Monocytes Absolute Auto 0.4 K/mm3 (0.1-0.6); Monocytes Percent Auto 5.1 % (2.6-8.5); Neutrophils Absolute Auto 3.7 K/mm3 (1.3-6.7); Neutrophils Percent Auto 46.4 % (45.5-73.1); Platelet Count Result 213 k/mm3 (150-375); Red Blood Count 4.99 M/mm3 (4.6-6.20); Red Cell Distribution Width 13.2 % (11.5-14.5)
[2024-05-03 10:42] LABS: Alanine Aminotransferase 75 U/L (6-50); Albumin Level 3.7 g/dL (3.5-5.1); Alkaline Phosphatase 56 U/L (38-126); Anion Gap 7 mmol/L (4-12); Aspartate Amino Transferase 51 U/L (17-59); Blood Urea Nitrogen 17 mg/dL (9-20); Calcium 8.8 mg/dL (8.4-10.2); Carbon Dioxide 34 mmol/L (22-30); Chloride 97 mmol/L (98-107); Estimated CRCL calculation 103 ml/min; Estimated Glomerular Filt Rate > 60; Glucose 109 mg/dL (65-110); Potassium 3.6 mmol/L (3.4-5.0); Sodium 138 mmol/L (137-145)
[2024-05-03 14:00] VITALS: BP 118/63; PULSE 65; RESP 18; TEMP 36.2; O2SAT 98
[2024-05-03] MEDS: PANTOPRAZOLE SODIUM IV 40 MG VIAL IV PUSH (15:59)
[2024-05-03] MEDS: ACETAMINOPHEN/BUTALBITAL/CAFFEINE 325-50-40 MG TABLET (FIORICET) 1 TAB PO (16:16)
[2024-05-03 21:12] VITALS: BP 130/76; PULSE 60; RESP 18; TEMP 36.2; O2SAT 98
[2024-05-04] MEDS: MORPHINE SULFATE (*CRX) 4 MG/ML INJ IV PUSH (05:01)
[2024-05-04 05:28] VITALS: BP 127/58; PULSE 63; RESP 16; TEMP 37; O2SAT 98
[2024-05-04] MEDS: DEXTROSE 5%/0.45% SOD CHL 1,000 ML 100 ML IV CONT (06:38)
[2024-05-04 06:57] LABS: Basophils Absolute Auto 0.1 K/mm3 (0.0-0.1); Basophils Percent Auto 0.8 % (0.2-1.2); Eosinophils Absolute Auto 1.8 K/mm3 (0-0.3); Eosinophils Percent Auto 29.3 % (0-4.4); Hematocrit 42.3 % (42.0-52.0); Hemoglobin 14.5 g/dL (14.0-18.0); Immature Granulocyte Absolute 0.02 K/mm3 (0.00-0.031); Immature Granulocyte Percent A 0.3 % (0-0.5); Lymphocytes Absolute Auto 1.23 K/mm3 (0.9-3.2); Lymphocytes Percent Auto 19.8 % (18.3-44.2); Mean Corpuscular HGB Conc 34.3 g/dl (32-36); Mean Corpuscular Hemoglobin 32.1 pg (26-34); Mean Corpuscular Volume 93.6 fl (80-100); Mean Platelet Volume 11.3 fl (7.4-10.4); Monocytes Absolute Auto 0.3 K/mm3 (0.1-0.6); Neutrophils Absolute Auto 2.8 K/mm3 (1.3-6.7); Neutrophils Percent Auto 44.8 % (45.5-73.1); Platelet Count Result 180 k/mm3 (150-375); Red Blood Count 4.52 M/mm3 (4.6-6.20); Red Cell Distribution Width 13.1 % (11.5-14.5); White Blood Count 6.2 K/mm3 (4.5-10.0)
[2024-05-04 07:12] LABS: Anion Gap 7 mmol/L (4-12); Blood Urea Nitrogen 13 mg/dL (9-20); Calcium 8.2 mg/dL (8.4-10.2); Carbon Dioxide 29 mmol/L (22-30); Chloride 99 mmol/L (98-107); Estimated CRCL calculation 95 ml/min; Estimated Glomerular Filt Rate > 60; Glucose 108 mg/dL (65-110); Potassium 3.5 mmol/L (3.4-5.0); Sodium 135 mmol/L (137-145)
[2024-05-04 07:13] LABS: Alanine Aminotransferase 104 U/L (6-50); Albumin Level 3.5 g/dL (3.5-5.1); Alkaline Phosphatase 56 U/L (38-126); Anion Gap 6 mmol/L (4-12); Aspartate Amino Transferase 73 U/L (17-59); Bilirubin,Total 0.9 mg/dL (0.2-1.3); Blood Urea Nitrogen 13 mg/dL (9-20); Calcium 8.3 mg/dL (8.4-10.2); Carbon Dioxide 30 mmol/L (22-30); Chloride 99 mmol/L (98-107); Estimated CRCL calculation 95 ml/min; Estimated Glomerular Filt Rate > 60; Glucose 108 mg/dL (65-110); Potassium 3.5 mmol/L (3.4-5.0); Sodium 135 mmol/L (137-145)
[2024-05-04 09:31] LABS: Cholesterol 123 mg/dL (0-200); HDL Direct 23 mg/dL; Triglycerides 153 mg/dL (<150)
[2024-05-04 09:42] LABS: LDL Cholesterol Direct 70 mg/dL
[2024-05-04 10:26] LABS: Hepatitis B Surface Antigen Negative (Negative)
[2024-05-04 10:32] LABS: HAV RESULT Negative (Negative); Hepatitis B Core IgM Result Negative (Negative)
[2024-05-04] MEDS: PANTOPRAZOLE SODIUM IV 40 MG VIAL IV PUSH (10:38)
[2024-05-04 10:44] LABS: Hepatitis C Virus Antibody Negative (Negative)
--- NOTE | 2024-05-04 12:57 | PM.DS ---
DS: Admitting Diagnosis Discharge Date 05/04/2024 Admitting Diagnosis Ileus DS: Discharge Diagnosis Discharge Diagnosis (1) Abdominal pain: Code(s): R10.9 - Unspecified abdominal pain Status: Acute Assessment and Plan: Patient presents to the emergency room 4 days of abdominal pain 1 episode of nausea and vomiting. CT imaging was concerning for small bowel obstruction. I discussed with the radiologist today who reviewed the films and feels this is more likely ileus as is difficult to appreciate fluid in the small bowel. He also has diffuse fatty infiltration of the liver with moderate volume ascites. Differentials include SBO vs ileus vs gastritis vs gastroenteritis. Patient was made NPO. No NG tube as of yet but if he starts having vomiting will need to placed for decompression IV fluids with D5 NS at 100 an hour Replace electrolytes as needed Protonix IVP daily Tbili initially elevated at 1.0, no normal. AST 51, ASL 75. He denies ETOH use. Initially planned for a water-soluble small-bowel follow-through however radiology contacted me and given his contrast allergy this cannot be preformed. Barium could be given but if truly a concern for obstruction it would not be recommended. Plan for bowel rest overnight and repeat KUB in the morning. May consider consulting surgery of no improvement Plan DVT prophylaxis: lovenox GI prophylaxis: protonix Glycemic control: na Code Status: FULL CODE Disposition: 49-year-old male who presents the emergency room with [address] of abdominal [address] CT is concerning for possible small bowel obstruction. He is unable to undergo small-bowel follow-through given contrast allergy. Will conservatively manage at this time with bowel rest, IV fluids. Should he have vomiting and NG tube will need to be placed. Repeating a KUB in the morning to assess small bowel versus ileus. If he does not improve with conservative management will need to consult surgery. Medication reconciliation obtained via the following: Nurse completed on admission The file time of this note does not necessarily represent the time the patient was seen. DS: Summary Hospital Course Reason for hospitalization: Ileus Hospital Course: Admission: Medical Chart This is a 49-year-old gentleman with past medical history significant for diverticulitis, hypertension and umbilical hernia repair who presented to [facility] 05/02 with complaints of abdominal pain. The patient provides the following history. On Thursday he developed generalized abdominal pain to his left lower and right lower quadrant. The last thing he ate was on Thursday night which was a cheeseburger from [employer]. He reports 1 episode of nausea and vomiting with clear emesis. His last bowel movement was yesterday which was yellow and watery. He also reports a headache. He has had similar pain to this 4 years ago when he was treated for diverticulitis requiring hospitalization with IV antibiotics. He lives at home with his and 2 children and denies any recent sick contacts. On exam he is resting in bed and appears to feel unwell. He has moderate tenderness to the left and right lower quadrants to palpation. He denies dizziness, chest pain, shortness a breath, sore throat, fever, or chills. In the emergency room labs were fairly unremarkable apart from T bili 1.1 and ALT 71. Urinalysis showed specific gravity 1.025, +1 bilirubin, moderate mucus present. CT of abdomen and pelvis showed hepatosplenomegaly with hepatic steatosis, severe proximal small-bowel obstruction, moderate ascites, and urinary bladder inflammatory changes. Given concerns for small-bowel obstruction he was transferred to [facility] for further workup and possible surgical consult. 05/09/2024: DISCHARGED Patient had follow up KUB the fol
== END 2024-05-04 14:17 | disposition home or self-care (01) | DRG 390 ==
PROVIDERS: Nurse Practitioner Acute Care; Admitting Provider Internal Medicine; PCP Family Medicine; Visit Provider Nurse Practitioner Family
DX: K56.7 Ileus, unspecified (principal); I10 Essential (primary) hypertension; K57.30 Diverticulosis of large intestine without perforation or abscess without bleeding; K21.9 Gastro-esophageal reflux disease without esophagitis; M10.9 Gout, unspecified; Z87.442 Personal history of urinary calculi; Z79.82 Long term (current) use of aspirin
CPT/HCPCS: 36415; 74018; 80048; 80053; 80061; 80074; 83605; 83735; 84100; 85025; 85610; 85730; A9270; G0378; G0379; J1170; J1650; J2270; J2470

== ENCOUNTER 2024-05-06 22:12 | Emergency (ER) | payer OTHER, SELFPAY ==
--- NOTE | ~2024-05-06 | CT_ITS ---
EXAMINATION: CT abdomen pelvis wo con DATE: 05/06/2024 23:00 INDICATION: Upper abdominal pain, nausea and vomiting TECHNIQUE: Computed tomography (CT) of the abdomen and pelvis was performed without intravenous contr ast. Automated exposure control and iterative reconstruction technique were employed. The dose-length product was 1637.75 mGy-cm. COMPARISON: 05/02/2024 FINDINGS: Chronic atelectasis/scarring at the posterior medial right lower lobe. Calcified left lower lobe nodu le consistent with old granulomatous disease. Heart size is normal. No pericardial or pleural effusio n. Small sliding-type hiatal hernia. Prominent wall thickening in the distal esophagus consistent wit h esophagitis which could be related to reflux. Diffuse hepatic steatosis with focal sparing along the gallbladder fossa. Gallbladder, spleen, pancre as and bilateral adrenal glands are normal. 5.4 cm cyst at the upper pole the right kidney. Bilateral nonobstructing nephrolithiasis with 5 stones in the right kidney measuring up to 4 mm and 3 stones i n the left kidney also measuring up to 4 mm. No ureteral stones or hydronephrosis. There is moderate colonic diverticulosis with a sigmoid predominance without adjacent inflammatory change to suggest di verticulitis. Normal appendix. There is suggestion of wall thickening in the proximal jejunum with as sociated stranding in the adjacent small bowel mesentery suspicious for enteritis. No dilation to sug gest obstruction. No pneumatosis or portal venous gas. Small amount of ascites scattered throughout t he abdomen and pelvis. No abscess or free intraperineal gas. Bladder is normal. Small bilateral fat-c ontaining inguinal hernias. No pathologically enlarged abdominal or pelvic lymphadenopathy. There is chronic mild anterior wedging of a few lower thoracic vertebral bodies. IMPRESSION: 1. Wall thickening in the proximal jejunum with stranding in the soft tissues the stricture at suspic ious for enteritis. No dilation to suggest obstruction. 2. Small sliding-type hiatal hernia with prominent wall thickening of the distal esophagus consistent with esophagitis which could be related to reported history of vomiting. 3. Diffuse hepatic steatosis. 4. Small amount of ascites scattered throughout the abdomen and pelvis. 5. Bilateral nonobstructing nephrolithiasis. 6. Diverticulosis. Reviewed, dictated and finalized at location A. IMPRESSION: 1. Wall thickening in the proximal jejunum with stranding in the soft tissues t he stricture at suspicious for enteritis. No dilation to suggest obstruction. 2. Small sliding-type hiatal hernia with prominent wall thickening of the dista l esophagus consistent with esophagitis which could be related to reported hist ory of vomiting. 3. Diffuse hepatic steatosis. 4. Small amount of ascites scattered throughout the abdomen and pelvis. 5. Bilateral nonobstructing nephrolithiasis. 6. Diverticulosis.
[2024-05-06 22:15] VITALS: BP 150/97; PULSE 112; RESP 18; TEMP 37; O2SAT 98
--- NOTE | 2024-05-06 22:35 | ED.ABDPAIN ---
HPI - Abdominal Pain General Chief Complaint: Abdominal Pain Stated Complaint: n/v/d Source: patient and family Mode of arrival: ambulatory Limitations: no limitations History of Present Illness HPI narrative: 49 YEARS OLD WHITE MALE CAME TO THE EMERGENCY ROOM BY PRIVATE CAR COMPLAINING OF FREQUENT VOMITING STARTED 6 HOUR PRIOR TO ARRIVAL TO THE EMERGENCY ROOM, MAXIMUM 3 EPISODES OF VOMITING, AND 1 EPISODE OF LOOSE STOOL. ASSOCIATED WITH ABDOMINAL DISCOMFORT. PATIENT HAD SIMILAR SYMPTOMS, AND WAS DISCHARGED FROM [facility] 2 DAYS AGO. PATIENT IS TELLING ME THAT HE DID NOT FEEL OKAY AT THE TIME OF DISCHARGE, AND COULD NOT EAT BECAUSE OF THE SEVERE NAUSEA. PATIENT IS ALLERGIC TO CONTRAST, Related Data Home Medications Medication Instructions Recorded Confirmed hydrochlorothiazide 25 mg tablet 25 mg PO DAILY 05/02/24 05/06/24 alpha lipoic acid 200 mg PO DAILY 05/03/24 05/06/24 aspirin 81 mg tablet,delayed 81 mg PO DAILY 05/03/24 05/06/24 release vitamin B complex 1 cap PO DAILY 05/03/24 05/06/24 Allergies Allergy/AdvReac Type Severity Reaction Status Date / Time Iodinated Contrast Media Allergy Mild Swelling Verified 05/06/24 22:34 Shrimp Allergy Intermediate LIPS SWELL Uncoded 05/06/24 22:34 Contrast Media Allergy Mild Swelling Uncoded 05/06/24 22:34 Review of Systems Review of Systems: All systems reviewed & are unremarkable except as noted in HPI and below PMFSH Past Medical History Medical History COVID-19 virus detected Diverticulitis of large intestine with perforation and abscess without bleeding GERD (gastroesophageal reflux disease) Gout History of kidney stones Hypertension Previously on Lisinopril but no longer taking hyperventilates - lifestyle modification Surgical History Surgical History H/O umbilical hernia repair 01/15/21 Laparoscopic umbilical hernia repair with Symbotex mesh, da Gurjit assisted History of colonoscopy History of esophagogastroduodenoscopy (EGD) Family History Family History Mother Hypertension Asthma Father Hypertension Family history of elevated blood lipids Carcinoma of colon Diabetes mellitus Grandparent Cerebrovascular accident Cancer Other Hypertension Social History Social History Social History: Smoking status: Never smoker Tobacco type: smokeless tobacco Smokeless tobacco user: chewing tobacco Second hand tobacco smoke exposure: No Additional smoking assessment comments: chews tobacco x20yrs Alcohol intake: never Substance use: never Substance use type: does not use Do You Feel Safe in your Home?: Yes Lack of Transportation: No Lack of Food: Never True Current Housing: I Have Housing Concerned About Future Housing: No Difficulty Paying Gas/Electric Bills: No Difficulty Paying for Meds: No Currently Unemployed: No Education: Don't Know Difficulty w/ Childcare or Family Care: No Living arrangements: with family Occupation/Education: occupation 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 [employer] Gender identity (if verbalized by the patient): Male Sexual Orientation (if Verbalized by the Patient): Straight or Heterosexual Spiritual care concerns: No Exam Narrative: GENERAL APPEARANCE: WELL-DEVELOPED, WELL-NOURISHED SKIN: NORMAL COLOR HEAD: NORMOCEPHALIC, NONTRAUMATIC EYES: CLEAR CONJUNCTIVA ENT: OROPHARYNX NORMAL, EARS NORMAL, NOSE NORMAL NECK: SUPPLE, NONTENDER CHEST AND RESPIRATORY: AIRWAY PATENT, NO RESPIRATORY DISTRESS, NO ACCESSORY MUSCLE USE HEART: REGULAR RATE/RHYTHM ABDOMEN: SOFT, SLIGHT DIFFUSE TENDERNESS, NO ORGANOMEGALY, QUIET BOWEL SOUNDS VASCULAR: NORMAL PERIPHERAL PULSES, NORMAL CAPILLARY REFILL. MUSCULOSKELETAL: NORMAL RANGE OF MOTION
[2024-05-06 22:53] LABS: Basophils Absolute Auto 0.07 K/mm3 (0.00-0.10); Basophils Percent Auto 0.6 % (0.0-1.0); Eosinophils Absolute Auto 2.56 K/mm3 (0.02-0.50); Eosinophils Percent Auto 22.4 % (1.0-6.0); Hematocrit 50.5 % (40.0-54.0); Hemoglobin 17.8 g/dL (14.0-18.0); Immature Granulocyte Absolute 0.04 K/mm3 (0.00-0.00); Immature Granulocyte Percent A 0.4 % (0.0-0.0); Lymphocytes Absolute Auto 1.96 K/mm3 (1.10-4.50); Lymphocytes Percent Auto 17.2 % (18.0-42.0); Mean Corpuscular HGB Conc 35.2 g/dL (32-36); Mean Corpuscular Hemoglobin 31.9 pg (27.0-31.0); Mean Corpuscular Volume 90.5 fL (78.0-102.0); Mean Platelet Volume 10.7 fl (8.7-11.0); Monocytes Absolute Auto 0.53 K/mm3 (0.10-0.90); Monocytes Percent Auto 4.6 % (2.0-11.0); Neutrophils Absolute Auto 6.26 K/mm3 (1.70-7.20); Neutrophils Percent Auto 54.8 % (50.0-70.0); Platelet Count Result 284 K/mm3 (150-420); Red Blood Count 5.58 M/mm3 (4.70-6.10); Red Cell Distribution Width 12.9 % (11.6-14.4); White Blood Count 11.4 K/mm3 (4.8-10.8)
--- NOTE | 2024-05-06 23:04 | PC.NURSE ---
urinal handed to pt. pt trying to urinate
[2024-05-06 23:07] LABS: Alanine Aminotransferase 63 U/L (16-63); Alkaline Phosphatase 73 U/L (46-116); Anion Gap 9 mmol/L (4-12); Aspartate Amino Transferase 32 U/L (15-37); Bilirubin,Total 1.2 mg/dL (0.00-1.00); Blood Urea Nitrogen 11 mg/dL (7-18); Calcium 9.1 mg/dL (8.5-10.1); Carbon Dioxide 32 mmol/L (21-32); Chloride 100 mmol/L (98-108); Estimated CRCL calculation 73 ml/min; Estimated Glomerular Filt Rate 49; Glucose 140 mg/dL (70-99); Lipase 27 U/L (16-77); Osmolality Calculated 293 mOsm/kg (285-295); Potassium 3.4 mmol/L (3.5-5.1); Sodium 141 mmol/L (136-145); Total Protein 6.9 g/dL (6.4-8.2)
[2024-05-06] MEDS: SODIUM CHLORIDE 0.9% IV 1,000 ML 999 ML IV CONT (23:08)
[2024-05-06] MEDS: ONDANSETRON INJ 4 MG/2 ML VIAL IV PUSH (23:10)
[2024-05-06] MEDS: HYDROmorphone HCL INJ (*CRX) 2 MG/ML VIAL 0.5 MG IV PUSH (23:10)
[2024-05-06 23:12] LABS: Add Urine Microscopic? YES; Appearance Urine Clear (Clear); Bilirubin Urine 2+ (Negative); Blood Urine Negative (Negative); Color Urine Yellow (Yellow); Glucose Urine UA Negative (Negative); Ketones Urine 1+ (Negative); Leukocyte Esterase Ur Negative LEU/UL (Negative); Nitrate Urine Negative (Negative); Protein Urine 1+ (Negative); Specific Grav Ur >= 1.030 (1.010-1.020)
[2024-05-06 23:16] LABS: Bacteria Urine 1+ /hpf; Mucus Urine Few /lpf; RBC Urine 0-2 /hpf (0-2); Squamous Epithelial Cell Urine Rare /hpf (Few); WBC Urine 0-3 /hpf (0-3)
[2024-05-06 23:45] VITALS: BP 124/84; PULSE 93; RESP 16; O2SAT 92
[2024-05-07 00:01] VITALS: BP 122/81; PULSE 95; RESP 16; O2SAT 94
[2024-05-07] MEDS: SODIUM CHLORIDE 0.9% IV 1,000 ML 500 ML IV CONT (00:07)
[2024-05-07] MEDS: PANTOPRAZOLE SODIUM IV 40 MG VIAL IV PUSH (00:16)
[2024-05-07] MEDS: metroNIDAZOLE 500 MG/ISO 100ML 500 MG/100 ML BAG 100 MG IVPB (00:25)
[2024-05-07] MEDS: levoFLOXacin 750 MG/D5W 150 ML 750 MG/150 ML BAG 100 MG IVPB (00:25)
[2024-05-07 01:01] VITALS: BP 120/86; PULSE 90; RESP 16; O2SAT 94
[2024-05-07 02:01] VITALS: BP 123/78; PULSE 75; RESP 16; O2SAT 95
[2024-05-07] MEDS: SODIUM CHLORIDE 0.9% IV 1,000 ML 999 ML IV CONT (02:29)
[2024-05-07 03:00] VITALS: BP 133/76; PULSE 76; RESP 16; O2SAT 96
[2024-05-07] MEDS: HYDROmorphone HCL INJ (*CRX) 2 MG/ML VIAL 0.5 MG IV PUSH (03:10)
[2024-05-07] MEDS: ONDANSETRON INJ 4 MG/2 ML VIAL IV PUSH (03:14)
== END 2024-05-07 03:28 | disposition short-term general hospital (02) ==
PROVIDERS: Emergency Provider Emergency Medicine; PCP Family Medicine
DX: K52.9 Noninfective gastroenteritis and colitis, unspecified (principal); K20.90 Esophagitis, unspecified without bleeding; N17.9 Acute kidney failure, unspecified; I10 Essential (primary) hypertension; Z79.899 Other long term (current) drug therapy; Z79.82 Long term (current) use of aspirin
CPT/HCPCS: 36415; 74176; 80053; 81001; 83690; 85025; 96361; 96365; 96368; 96374; 96375; 99285; J1170; J1836; J1956; J2405; J2470; J7030

== ENCOUNTER 2024-05-07 03:50 | Inpatient (IN) | payer OTHER, SELFPAY ==
--- NOTE | ~2024-05-07 | XR_ITS ---
EXAMINATION: XR sm bowel follow through DATE: 05/10/2024 10:55 INDICATION: Nausea and vomiting. TECHNIQUE: Oral contrast was administered, and a time course of radiographs of the abdomen was obtain ed. Fluoroscopy of the small bowel was not performed. Fluoroscopy exposure time was 0 minutes. The to clarisse number of images was 10. COMPARISON: CT abdomen and pelvis 05/06/2024 FINDINGS: There are no dilated loops of bowel. There is no abnormal mass or stricture. Transit time from the st omach to proximal colon was approximately 1 hour. IMPRESSION: 1. Normal small bowel series. Reviewed, dictated and finalized at location A.
--- NOTE | ~2024-05-07 | XR_ITS ---
XR abdomen/kub 1V DATE: 05/08/2024 14:20 INDICATION: Abdominal pain, nausea and vomiting TECHNIQUE: 3 supine AP views COMPARISON: 05/06/2024 CT abdomen pelvis 05/04/2024 FINDINGS: There are calcifications overlying both kidneys consistent with bilateral nephrolithiasis. Nonspecific bowel gas pattern without evidence of obstruction. The psoas shadows are intact. No visceromegaly is noted. IMPRESSION: Bilateral nephrolithiasis Nonspecific bowel gas pattern Reviewed, dictated and finalized at Location A. Reviewed, dictated and finalized at location J.
[2024-05-07] MEDS: KCL 20 MEQ/D5/0.45% SOD CHL 1,000 ML 150 ML IV CONT ×2 (04:36→16:40)
[2024-05-07 05:47] VITALS: BP 142/98; PULSE 75; RESP 18; TEMP 36.8; O2SAT 96
[2024-05-07] MEDS: ENOXAPARIN 40 MG/0.4 ML SYRINGE SUB-Q (09:21)
--- NOTE | 2024-05-07 10:11 | PM.IMHP ---
H&P: HPI History of Present Illness Date/Time: 05/07/24 10:11 Chief Complaint: abd pain Narrative: HPI narrative: 49 YEARS OLD WHITE MALE with PMH/o diverticulitis, hypertension and umbilical hernia repair admitted from ED for c/o abd pain, n/v/d. Symptoms started few hours prior to him arriving to ed. He reports vomiting x 3 and 1 episode of diarrhea with abd discomfort. Of note- he was admitted to [place] on 05/03 and discharged 05/04 for the same symptoms. Notes reviewed: CT is concerning for possible small bowel obstruction. He is unable to undergo small-bowel follow-through given contrast allergy. Will conservatively manage at this time with bowel rest, IV fluids. Should he have vomiting and NG tube will need to be placed. Repeating a KUB in the morning to assess small bowel versus ileus. If he does not improve with conservative management will need to consult surgery. GI was consulted this am - 05/07. EGD on Thursday. 05/07- pt is seen and examined. he is doing ok overall, reports some abd cramping but no n/v since been here. 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 Pt doesnot drink or smokes. Review of Systems Constitutional: Constitutional: Denies chills ENT: Denies nasal congestion Cardiovascular: Cardiovascular: Denies chest pain Respiratory: Respiratory: Denies chest congestion and Denies cough Gastrointestinal: Gastrointestinal: Reports abdominal pain, Reports bloating, Reports diarrhea, Reports nausea and Reports vomiting Genitourinary: Genitourinary: Denies hematuria Musculoskeletal: Musculoskeletal: Denies myalgias [facility] Past Medical History Medical History COVID-19 virus detected Diverticulitis of large intestine with perforation and abscess without bleeding Elevated liver enzymes GERD (gastroesophageal reflux disease) Gout History of kidney stones Hypertension Previously on Lisinopril but no longer taking hyperventilates - lifestyle modification Surgical History Surgical History H/O umbilical hernia repair 01/15/21 Laparoscopic umbilical hernia repair with Symbotex mesh, da Gurjit assisted History of colonoscopy History of esophagogastroduodenoscopy (EGD) Family History Family History Mother Hypertension Asthma Father Hypertension Family history of elevated blood lipids Carcinoma of colon Diabetes mellitus Grandparent Cerebrovascular accident Cancer Other Hypertension Social History Social History Social History: Smoking status: Never smoker Tobacco type: smokeless tobacco Smokeless tobacco user: chewing tobacco Second hand tobacco smoke exposure: No Additional smoking assessment comments: chews tobacco x20yrs Alcohol intake: never Substance use: never Substance use type: does not use Do You Feel Safe in your Home?: Yes Lack of Transportation: No Lack of Food: Never True Current Housing: I Have Housing Concerned About Future Housing: No Difficulty Paying Gas/Electric Bills: No Difficulty Paying for Meds: No Currently Unemployed: No Education: Don't Know Difficulty w/ Childcare or Family Care: No Living arrangements: with family Occupation/Education: occupation 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
--- NOTE | 2024-05-07 12:39 | WPDGICN ---
Assessment and Plan Assessment and plan (1) Enteritis: Code(s): K52.9 - Noninfective gastroenteritis and colitis, unspecified Status: Acute Assessment and Plan: advance diet and monitor probably needs EGD Thursday to assess (2) Abdominal pain: Code(s): R10.9 - Unspecified abdominal pain Status: Acute Assessment and Plan: medical management (3) Nonalcoholic fatty liver disease: Code(s): K76.0 - Fatty (change of) liver, not elsewhere classified Status: Acute Assessment and Plan: probably fatty liver noted mild elevated liver enzymes (4) Elevated liver enzymes: Code(s): R74.8 - Abnormal levels of other serum enzymes Status: Acute Assessment and Plan: reviewed ct scan, possible fatty liver probably can follow-up in office GI Consult Note Consult date/time: 05/07/24 12:39 Reason for consult: n/v, enteritis HPI: Gelacio Adhikari Lucretia SiegelVikas is a 49 year old male PMH of diverticulitis, hypertension and umbilical hernia repair admitted from ED for c/o abd pain, n/v/d. He had similar hospitalization just few days ago (new onset) and treated medically, previous CT scan showed small bowel obstruction 4 days ago. He is back after vomiting again, today better and tolerating liquid diet, still burning sensation in abdomen. He is having normal BM. Repeat CT scan showed suggestion of wall thickening in the proximal jejunum with associated stranding in the adjacent small bowel mesentery suspicious for enteritis. No dilation to suggest obstruction. No pneumatosis or portal venous gas. Small amount of ascites scattered throughout the abdomen and pelvis. No abscess or free intraperineal gas. He had EGD but years ago. Review of Systems Constitutional: Constitutional: Denies headache(s) and Denies weakness Eyes: Eyes: Denies blurry vision ENT: Reports Normal hearing present, Denies headache(s) and Denies neck pain Cardiovascular: Cardiovascular: Denies chest pain and Denies dyspnea Respiratory: Respiratory: Denies dyspnea Gastrointestinal: Gastrointestinal: Reports no additional gastrointestinal complaints Genitourinary: Genitourinary: Denies dysuria Musculoskeletal: Musculoskeletal: Denies neck pain Integumentary/Breasts: Skin/Breast: Denies dry skin Neurologic: Reports Normal hearing present, Denies headache(s) and Denies weakness Psychiatric: Psychiatric: Denies anxiety Endocrine: Endocrine: Denies change in body appearance Hematologic/Lymphatic: Hematologic/Lymphatic: Denies easy bleeding Allergic/Immunologic: Allergic/Immunologic: Denies urticaria PMFSH Past Medical History Medical History (Updated 05/07/24 @ 12:43 by Joo Azevedo MD) COVID-19 virus detected Diverticulitis of large intestine with perforation and abscess without bleeding Elevated liver enzymes GERD (gastroesophageal reflux disease) Gout History of kidney stones Hypertension Previously on Lisinopril but no longer taking hyperventilates - lifestyle modification Surgical History Surgical History H/O umbilical hernia repair 01/15/21 Laparoscopic umbilical hernia repair with Symbotex mesh, da Gurjit assisted History of colonoscopy History of esophagogastroduodenoscopy (EGD) Family History Family History Mother Hypertension Asthma Father Hypertension Family history of elevated blood lipids Carcinoma of colon Diabetes mellitus Grandparent Cerebrovascular accident Cancer Other Hypertension Social History Social History Social History: Smoking status: Never smoker Tobacco type: smokeless tobacco Smokeless tobacco user: chewing tobacco Second hand tobacco smoke exposure: No Additional smoking assessment comments: chews tobacco x20yrs Alcohol intake: never Substance u
[2024-05-07 14:00] VITALS: BP 119/79; PULSE 76; RESP 24; TEMP 36.8; O2SAT 98
[2024-05-07] MEDS: GABAPENTIN 300 MG CAPSULE PO (16:19)
[2024-05-07 21:22] VITALS: BP 127/78; PULSE 67; RESP 20; TEMP 37; O2SAT 97
[2024-05-08 06:00] VITALS: BP 140/77; PULSE 70; RESP 20; TEMP 37.3; O2SAT 97
[2024-05-08 06:31] LABS: Hematocrit 44.9 % (42.0-52.0); Hemoglobin 15.4 g/dL (14.0-18.0); Mean Corpuscular HGB Conc 34.3 g/dl (32-36); Mean Corpuscular Hemoglobin 32.2 pg (26-34); Mean Corpuscular Volume 93.7 fl (80-100); Mean Platelet Volume 11.2 fl (7.4-10.4); Platelet Count Result 206 k/mm3 (150-375); Red Blood Count 4.79 M/mm3 (4.6-6.20); Red Cell Distribution Width 13.4 % (11.5-14.5); White Blood Count 8.1 K/mm3 (4.5-10.0)
[2024-05-08 06:47] LABS: Alanine Aminotransferase 56 U/L (6-50); Albumin Level 3.4 g/dL (3.5-5.1); Alkaline Phosphatase 49 U/L (38-126); Anion Gap 6 mmol/L (4-12); Aspartate Amino Transferase 44 U/L (17-59); Blood Urea Nitrogen 8 mg/dL (9-20); Carbon Dioxide 28 mmol/L (22-30); Chloride 101 mmol/L (98-107); Estimated Glomerular Filt Rate > 60; Glucose 93 mg/dL (65-110); Potassium 3.5 mmol/L (3.4-5.0); Sodium 135 mmol/L (137-145)
--- NOTE | 2024-05-08 08:24 | PM.IMPN ---
Progress Note: A&P Assessment and Plan (1) Enteritis: Code(s): K52.9 - Noninfective gastroenteritis and colitis, unspecified Status: Inactive Assessment and Plan: - gi consult - clear liquid diet- advance if tolerated - egd on thursday (2) Abdominal pain: Code(s): R10.9 - Unspecified abdominal pain Status: Acute (3) Nonalcoholic fatty liver disease: Code(s): K76.0 - Fatty (change of) liver, not elsewhere classified Status: Acute Assessment and Plan: - liver enzymes elevated - will need close follow up with GI as outpt Plan chronic htn- meds reviewed and losartan 50 mg and nctz 12.5 daily restarted. holding lasix that pt takes for BP chronic gerd- will add protonix chronic gout- not on any meds- monitor DVT prophylaxis: lovenox Glycemic control: na Code Status: FULL CODE Time Spent With Patient Time with patient: Greater than 35 minutes Subjective Date/time seen: 05/08/24 08:24 Interval history: Narrative: HPI narrative: 49 YEARS OLD WHITE MALE with PMH/o diverticulitis, hypertension and umbilical hernia repair admitted from ED for c/o abd pain, n/v/d. Symptoms started few hours prior to him arriving to ed. He reports vomiting x 3 and 1 episode of diarrhea with abd discomfort. Of note- he was admitted to [place] on 05/03 and discharged 05/04 for the same symptoms. Notes reviewed: CT is concerning for possible small bowel obstruction. He is unable to undergo small-bowel follow-through given contrast allergy. Will conservatively manage at this time with bowel rest, IV fluids. Should he have vomiting and NG tube will need to be placed. Repeating a KUB in the morning to assess small bowel versus ileus. If he does not improve with conservative management will need to consult surgery. GI was consulted this am - 05/07. EGD on Thursday. 05/07- pt is seen and examined. he is doing ok overall, reports some abd cramping but no n/v since been here. 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 Pt doesnot drink or smokes. 05/08- pt is seen and examined this am. 1 BM last night. Reports nausea after drinking apple clear ensure. Review of Systems Constitutional: Constitutional: Denies chills ENT: Denies nasal congestion Cardiovascular: Cardiovascular: Denies chest pain Respiratory: Respiratory: Denies chest congestion and Denies cough Gastrointestinal: Gastrointestinal: Reports abdominal pain, Reports bloating, Reports diarrhea, Reports nausea and Reports vomiting Genitourinary: Genitourinary: Denies hematuria Musculoskeletal: Musculoskeletal: Denies myalgias Objective Data Vital Signs Vital Signs: Vital Signs - 24 hr 05/07/24 14:00 05/07/24 20:00 05/07/24 21:22 Temperature 98.3 F 98.6 F Pulse Rate 76 67 Respiratory Rate 24 H 20 Blood Pressure 119/79 127/78 Pulse Oximetry 98 97 Oxygen Delivery Room Air 05/08/24 06:00 Temperature 99.1 F Pulse Rate 70 Respiratory Rate 20 Blood Pressure 140/77 Pulse Oximetry 97 Oxygen Delivery Intake/Output Intake/Output: Intake & Output 05/05/24 05/06/24 05/07/24 05/08/24 23:59 23:59 23:59 23:59 Intake Total 2395 350 Output Total 250 750 Balance 2145 -400 Meds/Results Medications: Active Medications Generic Name Dose Route Start Last Admin Trade Name Freq PRN Reason Stop Dose Admin Acetaminophen 650 mg 05/07/24 03:50 Acetaminophen 325 Mg Tablet PO Q4H PRN Mild Pain (1-3) or Fever Hydrocodone Bitart/Acetaminophen 1 tab 05/07/24 03:50 Hydrocodone/Acetaminophen (*Crx) 5-325 Mg Tablet PO Q4H PRN Moderate Pain (4-6) Aspirin 81 mg 05/08/24 09:00 Aspirin 81 Mg Enteric Tablet PO DAILY [facility] Enoxaparin Sodium 40 mg 05/07/24 09:00 05/07/24 09:21 Enoxaparin 40 Mg/0.4 Ml Syringe SUB-Q 40 mg DAILY [facility] A
[2024-05-08] MEDS: LOSARTAN POTASSIUM 50 MG TABLET PO (10:01)
[2024-05-08] MEDS: POTASSIUM CHLORIDE 20 MEQ PACKET (FOR LIQUID) PO (10:01)
[2024-05-08] MEDS: ASPIRIN 81 MG ENTERIC TABLET PO (10:01)
[2024-05-08] MEDS: GABAPENTIN 300 MG CAPSULE PO ×2 (10:01→16:26)
[2024-05-08] MEDS: hydroCHLOROthiazide 12.5 MG CAPSULE PO (10:01)
[2024-05-08] MEDS: ENOXAPARIN 40 MG/0.4 ML SYRINGE SUB-Q (10:01)
[2024-05-08] MEDS: ONDANSETRON INJ 4 MG/2 ML VIAL IV PUSH (13:05)
[2024-05-08] MEDS: PROCHLORPERAZINE EDISYLATE 10 MG/2 ML VIAL IV PUSH (13:45)
--- NOTE | 2024-05-08 13:48 | WPDGIPROGNO ---
Progress Note: A&P Assessment and Plan (1) Nausea & vomiting: Code(s): R11.2 - Nausea with vomiting, unspecified Status: Acute Assessment and Plan: recurrent n/v last hospitalization noted SOB, repeat CT scan with thickening proximal jejunum, is this causing problem? EGD with push enteroscopy to attempt reaching proximal jejunum will ask surgery to evaluate given recurrent n/v repeat KUB today (2) Abdominal pain: Code(s): R10.9 - Unspecified abdominal pain Status: Acute Assessment and Plan: egd tomorrow (3) Enteritis: Code(s): K52.9 - Noninfective gastroenteritis and colitis, unspecified Status: Inactive (4) Partial small bowel obstruction: Code(s): K56.600 - Partial intestinal obstruction, unspecified as to cause Status: Inactive (5) Nonalcoholic fatty liver disease: Code(s): K76.0 - Fatty (change of) liver, not elsewhere classified Status: Acute Assessment and Plan: he can follow-up as outpatient Subjective Date/time seen: 05/08/24 13:48 Interval history: today again with nausea and vomiting, also cramping abdominal discomfort Review of Systems Review of Systems: All systems reviewed & are unremarkable except as noted in HPI and below Exam Const: General: comfortable and no acute distress HENMT: Face/Nose/Sinus: Normal nares present Eyes: General: appearance normal, both eyes and all related structures Neck: Neck: no JVD Resp: Auscultation: clear to auscultation bilaterally Cardio: Rate: regular rate Rhythm: regular rhythm GI: Inspection: distended GI Palp: Yes Soft to palpation, No Firmness to palpation present (GI) and Yes Tenderness to palpation present (GI) (mild ttp in epigastric, no rebound) Skin: General skin exam: normal color Neuro: General: gait normal Speech: normal speech Extrem: General: normal to inspection Psych: Mental Status: mental status grossly normal Objective Data Vital Signs Vital Signs: Vital Signs - 24 hr 05/07/24 14:00 05/07/24 20:00 05/07/24 21:22 Temperature 98.3 F 98.6 F Pulse Rate 76 67 Respiratory Rate 24 H 20 Blood Pressure 119/79 127/78 Pulse Oximetry 98 97 Oxygen Delivery Room Air 05/08/24 06:00 Temperature 99.1 F Pulse Rate 70 Respiratory Rate 20 Blood Pressure 140/77 Pulse Oximetry 97 Oxygen Delivery Intake/Output Intake/Output: Intake & Output 05/05/24 05/06/24 05/07/24 05/08/24 23:59 23:59 23:59 23:59 Intake Total 2395 1650 Output Total 250 750 Balance 2145 900 Meds/Results Medications: Active Medications Generic Name Dose Route Start Last Admin Trade Name Freq PRN Reason Stop Dose Admin Acetaminophen 650 mg 05/07/24 03:50 Acetaminophen 325 Mg Tablet PO Q4H PRN Mild Pain (1-3) or Fever Hydrocodone Bitart/Acetaminophen 1 tab 05/07/24 03:50 Hydrocodone/Acetaminophen (*Crx) 5-325 Mg Tablet PO Q4H PRN Moderate Pain (4-6) Aspirin 81 mg 05/08/24 09:00 05/08/24 10:01 Aspirin 81 Mg Enteric Tablet PO 81 mg DAILY [facility] Administration Enoxaparin Sodium 40 mg 05/07/24 09:00 05/08/24 10:01 Enoxaparin 40 Mg/0.4 Ml Syringe SUB-Q 40 mg DAILY [facility] Administration Gabapentin 300 mg 05/07/24 17:00 05/08/24 13:09 Gabapentin 300 Mg Capsule PO Not Given TID [facility] Hydrochlorothiazide 12.5 mg 05/08/24 09:00 05/08/24 10:01 Hydrochlorothiazide 12.5 Mg Capsule PO 12.5 mg QAM [facility] Administration Potassium Chloride/Dextrose/Sod Cl 1,000 mls @ 150 mls/hr 05/07/24 03:50 05/07/24 16:40 Kcl 20 Meq/D5/0.45% Sod Chl IV CONT 150 mls/hr .Q6H40M [facility] Administration Losartan Potassium 50 mg 05/08/24 09:00 05/08/24 10:01 Losartan Potassium 50 Mg Tablet PO 50 mg QAM [facility] Administration Morphine Sulfate 2 mg 05/07/24 03:50 Morphine Sulfate (*Crx) 2 Mg/Ml Inj IV PUSH Q4H PRN Pain Rated 7-10 Ondansetron HCl 4 mg 05/07/24 03:50 05/08/24 13:
[2024-05-08 14:00] VITALS: BP 133/74; PULSE 67; RESP 20; TEMP 36.8; O2SAT 96
[2024-05-08] MEDS: KCL 20 MEQ/D5/0.45% SOD CHL 1,000 ML 150 ML IV CONT (16:27)
[2024-05-08 20:00] VITALS: O2SAT 96
[2024-05-08 21:47] VITALS: BP 128/83; PULSE 77; RESP 16; TEMP 36.8; O2SAT 95
[2024-05-09] VITALS (7 sets, daily range): BP systolic 109–162; BP diastolic 42–78; PULSE 53–88; RESP 18–27; TEMP 36.2–37; O2SAT 92–99; BMI 40.8
[2024-05-09] MEDS: KCL 20 MEQ/D5/0.45% SOD CHL 1,000 ML 150 ML IV CONT ×2 (02:19→11:41)
[2024-05-09 07:34] LABS: Hematocrit 41.1 % (42.0-52.0); Hemoglobin 14.2 g/dL (14.0-18.0); Mean Corpuscular HGB Conc 34.5 g/dl (32-36); Mean Corpuscular Hemoglobin 32.4 pg (26-34); Mean Corpuscular Volume 93.8 fl (80-100); Mean Platelet Volume 10.6 fl (7.4-10.4); Platelet Count Result 186 k/mm3 (150-375); Red Blood Count 4.38 M/mm3 (4.6-6.20); Red Cell Distribution Width 13.2 % (11.5-14.5); White Blood Count 7.5 K/mm3 (4.5-10.0)
[2024-05-09 07:57] LABS: Alanine Aminotransferase 45 U/L (6-50); Albumin Level 3.1 g/dL (3.5-5.1); Alkaline Phosphatase 46 U/L (38-126); Anion Gap 5 mmol/L (4-12); Aspartate Amino Transferase 38 U/L (17-59); Bilirubin,Total 0.8 mg/dL (0.2-1.3); Blood Urea Nitrogen 5 mg/dL (9-20); Calcium 8.3 mg/dL (8.4-10.2); Carbon Dioxide 29 mmol/L (22-30); Chloride 101 mmol/L (98-107); Estimated Glomerular Filt Rate > 60; Glucose 99 mg/dL (65-110); Potassium 3.3 mmol/L (3.4-5.0); Sodium 135 mmol/L (137-145)
--- NOTE | 2024-05-09 09:11 | PM.IMPN ---
Progress Note: A&P Assessment and Plan (1) Enteritis: Code(s): K52.9 - Noninfective gastroenteritis and colitis, unspecified Status: Inactive Assessment and Plan: - gi consult - clear liquid diet- advance if tolerated - egd on thursday- npo at midnight - zofran prn (2) Abdominal pain: Code(s): R10.9 - Unspecified abdominal pain Status: Acute Assessment and Plan: - surgery eval given persistent n/v - notes reviewed: The patient has had intractable nausea and vomiting despite bowel rest and conservative measures. He underwent EGD today which showed evidence of gastritis. His abdominal x-ray yesterday showed no evidence of obstruction. I do not think we will need to repeat a CT at this point, but a Gastrografin small-bowel follow-through would be beneficial to assess further. He does have a contrast allergy, but we can pre treat him with steroids and Benadryl to help prevent any allergic reaction. Will start hydrocortisone IV today and plan for small-bowel follow-through tomorrow. Continue other supportive measures at this time. Will follow with serial abdominal exams. (3) Nonalcoholic fatty liver disease: Code(s): K76.0 - Fatty (change of) liver, not elsewhere classified Status: Acute Assessment and Plan: - liver enzymes elevated - will need close follow up with GI as outpt (4) Hypokalemia: Code(s): E87.6 - Hypokalemia Status: Inactive Plan chronic htn- meds reviewed and losartan 50 mg and nctz 12.5 daily restarted. holding lasix that pt takes for BP chronic gerd- will add protonix chronic gout- not on any meds- monitor DVT prophylaxis: lovenox Glycemic control: na Code Status: FULL CODE Time Spent With Patient Time with patient: Greater than 35 minutes Subjective Date/time seen: 05/09/24 09:11 Interval history: Narrative: HPI narrative: 49 YEARS OLD WHITE MALE with PMH/o diverticulitis, hypertension and umbilical hernia repair admitted from ED for c/o abd pain, n/v/d. Symptoms started few hours prior to him arriving to ed. He reports vomiting x 3 and 1 episode of diarrhea with abd discomfort. Of note- he was admitted to [place] on 05/03 and discharged 05/04 for the same symptoms. Notes reviewed: CT is concerning for possible small bowel obstruction. He is unable to undergo small-bowel follow-through given contrast allergy. Will conservatively manage at this time with bowel rest, IV fluids. Should he have vomiting and NG tube will need to be placed. Repeating a KUB in the morning to assess small bowel versus ileus. If he does not improve with conservative management will need to consult surgery. GI was consulted this am - 05/07. EGD on Thursday. 05/07- pt is seen and examined. he is doing ok overall, reports some abd cramping but no n/v since been here. 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 Pt doesnot drink or smokes. 05/08- pt is seen and examined this am. 1 BM last night. Reports nausea after drinking apple clear ensure. 05/09- surgery consulted. NO nausea/vomiting today so far completed EGD with GI Review of Systems Constitutional: Constitutional: Denies chills ENT: Denies nasal congestion Cardiovascular: Cardiovascular: Denies chest pain Respiratory: Respiratory: Denies chest congestion and Denies cough Gastrointestinal: Gastrointestinal: Reports abdominal pain, Reports bloating, Reports diarrhea, Reports nausea and Reports vomiting Genitourinary: Genitourinary: Denies hematuria Musculoskeletal: Musculoskeletal: Denies myalgias Objective Data Vital Signs Vital Signs: Vital Signs - 24 hr 05/08/24 14:00 05/08/24 09:50 05/08/24 20:00 Temperature 98.3 F Pulse Rate 67 Respiratory Rate 20 Blood Pressure 133/74 Pulse Oximetry 96 96 Oxygen Delivery Room Air Room Air
[2024-05-09] MEDS: LACTATED RINGERS 1,000 ML 150 ML IV CONT (09:45)
--- NOTE | 2024-05-09 10:05 | WPDANESEPPF ---
Anes - Initial Pre Proc Eval Procedure: Operation Date: 05/09/24 16:15 Proposed Procedures p Esophagogastroduodenoscopy - Joo Azevedo MD Date/Time: 05/09/24 10:05 Surgeon: Tatyana Oseguera DO Pre Op Diagnosis: Enteritis of the jejunum Patient Data Age: 49 Gender: M Height: 1.8 m Weight: Last Vital Signs Temp 97.3 F L 05/09/24 09:41 Pulse 53 L 05/09/24 09:41 Resp 18 05/09/24 09:41 BP 143/63 H 05/09/24 09:41 Pulse Ox 98 05/09/24 09:41 O2 Del Method Room Air 05/09/24 09:41 Allergies Allergy/AdvReac Type Severity Reaction Status Date / Time shellfish derived Allergy Severe Swelling Verified 05/08/24 13:40 of Lip/Tongue/Throat Iodinated Contrast Media Allergy Mild Swelling Verified 05/06/24 22:34 Home Medications Medication Instructions Recorded Confirmed Type nitroglycerin 0.4 mg sublingual 0.4 mg sublingual Q5M PRN chest 11/20/23 05/07/24 Rx tablet pain #20 tabs losartan 50 mg-hydrochlorothiazide 1 tablet PO DAILY #90 tabs 12/18/23 05/07/24 Rx 12.5 mg tablet furosemide 20 mg tablet 20 mg PO QAM #90 tabs 03/29/24 05/07/24 Rx gabapentin 300 mg capsule 300 mg PO TID #90 caps 04/24/24 05/07/24 Rx potassium chloride 10 mEq 10 meq PO DAILY #90 tabs 04/29/24 05/07/24 Rx tablet,extended release hydrochlorothiazide 25 mg tablet 25 mg PO DAILY 05/02/24 05/07/24 History alpha lipoic acid 200 mg PO DAILY 05/03/24 05/07/24 History aspirin 81 mg tablet,delayed 81 mg PO DAILY 05/03/24 05/07/24 History release vitamin B complex 1 cap PO DAILY 05/03/24 05/07/24 History Laboratory Tests 05/09/24 07:25 WBC 7.5 K/mm3 (4.5-10.0) RBC 4.38 L M/mm3 (4.6-6.20) Hgb 14.2 g/dL (14.0-18.0) Hct 41.1 L % (42.0-52.0) MCV 93.8 fl (80-100) MCH 32.4 pg (26-34) MCHC 34.5 g/dl (32-36) RDW 13.2 % (11.5-14.5) Plt Count 186 k/mm3 (150-375) MPV 10.6 H fl (7.4-10.4) Sodium 135 L mmol/L (137-145) Potassium 3.3 L mmol/L (3.4-5.0) Chloride 101 mmol/L (98-107) Carbon Dioxide 29 mmol/L (22-30) Anion Gap 5 mmol/L (4-12) BUN 5 L mg/dL (9-20) Creatinine 1.10 mg/dL (0.7-1.3) Estim Creat Clear Calc Not Reportable Estimated GFR > 60 (59 - ) Glucose 99 mg/dL (65-110) Calcium 8.3 L mg/dL (8.4-10.2) Total Bilirubin 0.8 mg/dL (0.2-1.3) AST 38 U/L (17-59) ALT 45 U/L (6-50) Alkaline Phosphatase 46 U/L (38-126) Total Protein 6.0 L g/dL (6.3-8.2) Albumin 3.1 L g/dL (3.5-5.1) Patient hx anesthesia problems: none Family hx anesthesia problems: none Results Review: All pre-operative results and documents have been reviewed as part of the pre-operative evaluation. [facility] Past Medical History Medical History (Updated 05/08/24 @ 13:52 by Joo Azevedo MD) COVID-19 virus detected Diverticulitis of large intestine with perforation and abscess without bleeding Elevated liver enzymes GERD (gastroesophageal reflux disease) Gout History of kidney stones Hypertension Previously on Lisinopril but no longer taking hyperventilates - lifestyle modification Nausea & vomiting Surgical History Surgical History H/O umbilical hernia repair 01/15/21 Laparoscopic umbilical hernia repair with Symbotex mesh, da Gurjit assisted History of colonoscopy History of esophagogastroduodenoscopy (EGD) Family History Family History Mother Hypertension Asthma Father Hypertension Family history of elevated blood lipids Carcinoma of colon Diabetes mellitus Grandparent Cerebrovascular accident Cancer Other Hypertension Social History Social History Social History: Smoking status: Never smoker Tobacco type: smokeless tobacco Smokeless tobacco user: c
[2024-05-09] MEDS: POTASSIUM CHLORIDE INJ 40 MEQ in SODIUM CHLORIDE 0.9% IV 500 ML 130 MEQ IVPB (11:39)
[2024-05-09] MEDS: LOSARTAN POTASSIUM 50 MG TABLET PO (11:40)
[2024-05-09] MEDS: POTASSIUM CHLORIDE 20 MEQ PACKET (FOR LIQUID) PO (11:40)
[2024-05-09] MEDS: ENOXAPARIN 40 MG/0.4 ML SYRINGE SUB-Q (11:40)
[2024-05-09] MEDS: ASPIRIN 81 MG ENTERIC TABLET PO (11:40)
[2024-05-09] MEDS: GABAPENTIN 300 MG CAPSULE PO ×3 (11:40→17:37)
[2024-05-09] MEDS: hydroCHLOROthiazide 12.5 MG CAPSULE PO (11:40)
--- NOTE | 2024-05-09 13:57 | PM.CNGS ---
Assessment and Plan Assessment and plan (1) Nausea & vomiting: Qualifiers: Vomiting type: bilious vomiting Qualified Code(s): R11.14 - Bilious vomiting Code(s): R11.2 - Nausea with vomiting, unspecified Status: Acute Assessment and Plan: I have reviewed the 2 prior CTs as well as the abdominal x-rays since he 1st came in with the symptoms. The patient has had intractable nausea and vomiting despite bowel rest and conservative measures. He underwent EGD today which showed evidence of gastritis. His abdominal x-ray yesterday showed no evidence of obstruction. I do not think we will need to repeat a CT at this point, but a Gastrografin small-bowel follow-through would be beneficial to assess further. He does have a contrast allergy, but we can pre treat him with steroids and Benadryl to help prevent any allergic reaction. Will start hydrocortisone IV today and plan for small-bowel follow-through tomorrow. Continue other supportive measures at this time. Will follow with serial abdominal exams. (2) Abdominal pain: Qualifiers: Abdominal location: epigastric Qualified Code(s): R10.13 - Epigastric pain Code(s): R10.9 - Unspecified abdominal pain Status: Acute (3) Nonalcoholic fatty liver disease: Code(s): K76.0 - Fatty (change of) liver, not elsewhere classified Status: Acute History of Present Illness Consult details Consult date: 05/09/24 Reason for consult: other (possible small bowel obstruction) Requesting physician: Joo Azevedo MD Narrative: This is a 49-year-old man who I am asked to see for a possible small bowel obstruction. He has been experiencing nausea and vomiting for about the past week. He came into the hospital last week with intractable nausea and vomiting. There was a CT done at that initial hospitalization which showed dilated proximal small bowel. He was having bowel movements and was passing flatus. Despite being treated for this, he continued to have nausea and vomiting. He was able to be discharged home last week and went back to work on . He then began experiencing recurrent symptoms and came back to the hospital. A CT is showing some ascites and dilated proximal small bowel. No other significant abnormalities are noted. He does have a contrast allergy therefore no small-bowel follow-through has been obtained yet. The patient did undergo EGD today and he seems to be feeling better overall. He has had an umbilical hernia repair in the past but denies any other major abdominal surgeries. He denies any ill contacts or any potential food poisoning. He denies any prior history of liver problems and states that he does not drink alcohol currently. About 15 years ago he did drink heavily. Review of Systems Review of Systems: All systems reviewed & are unremarkable except as noted in HPI and below Constitutional: Constitutional: Denies chills and Denies fever(s) Eyes: Eyes: Denies change in vision ENT: Denies hearing loss, Denies neck pain and Denies sore throat Cardiovascular: Cardiovascular: Denies chest pain and Denies dyspnea Respiratory: Respiratory: Denies cough, Denies dyspnea and Denies wheezing Genitourinary: Genitourinary: Denies hematuria and Denies dysuria Musculoskeletal: Musculoskeletal: Denies arthralgias, Denies joint swelling and Denies neck pain Allergic/Immunologic: Allergic/Immunologic: Denies wheezing PMFSH Past Medical History Medical History COVID-19 virus detected Diverticulitis of large intestine with perforation and abscess without bleeding Elevated liver enzymes GERD (gastroesophageal reflux disease) Gout History of kidney stones Hypertension Previously on Lisinopril but no longer taking hyperventilates - lifestyle modification Nausea & vomiting Surgical History Surgical History (Reviewed 05/09/24 @ 14:00 by Enmanuel
[2024-05-09] MEDS: MORPHINE SULFATE (*CRX) 2 MG/ML INJ IV PUSH (16:31)
[2024-05-09 17:08] LABS: Glucose Point of Care 105 mg/dl (65-105)
[2024-05-09] MEDS: HYDROCORTISONE SODIUM SUCCINATE 100 MG/2 ML VIAL 200 MG IV PUSH (20:45)
[2024-05-09] MEDS: HYDROcodone/acetaminophen (*CRX) 5-325 MG TABLET 1 TAB PO (20:54)
[2024-05-10] VITALS: BP 114/58; PULSE 67; RESP 20; TEMP 36.6; O2SAT 97
[2024-05-10] MEDS: HYDROCORTISONE SODIUM SUCCINATE 100 MG/2 ML VIAL 200 MG IV PUSH ×2 (02:35→08:30)
[2024-05-10] MEDS: KCL 20 MEQ/D5/0.45% SOD CHL 1,000 ML 150 ML IV CONT ×3 (02:35→20:51)
[2024-05-10 07:08] LABS: Hematocrit 42.9 % (42.0-52.0); Hemoglobin 14.7 g/dL (14.0-18.0); Mean Corpuscular HGB Conc 34.3 g/dl (32-36); Mean Corpuscular Volume 93.3 fl (80-100); Mean Platelet Volume 10.9 fl (7.4-10.4); Platelet Count Result 187 k/mm3 (150-375); Red Cell Distribution Width 13.1 % (11.5-14.5)
[2024-05-10 07:26] LABS: Alanine Aminotransferase 63 U/L (6-50); Albumin Level 3.6 g/dL (3.5-5.1); Alkaline Phosphatase 51 U/L (38-126); Anion Gap 6 mmol/L (4-12); Aspartate Amino Transferase 49 U/L (17-59); Bilirubin,Total 0.6 mg/dL (0.2-1.3); Blood Urea Nitrogen 5 mg/dL (9-20); Calcium 8.7 mg/dL (8.4-10.2); Carbon Dioxide 29 mmol/L (22-30); Chloride 102 mmol/L (98-107); Estimated CRCL calculation 112 ml/min; Estimated Glomerular Filt Rate > 60; Glucose 146 mg/dL (65-110); Potassium 4.1 mmol/L (3.4-5.0); Sodium 137 mmol/L (137-145)
[2024-05-10] MEDS: hydroCHLOROthiazide 12.5 MG CAPSULE PO (08:29)
[2024-05-10] MEDS: ASPIRIN 81 MG ENTERIC TABLET PO (08:29)
[2024-05-10] MEDS: POTASSIUM CHLORIDE 20 MEQ PACKET (FOR LIQUID) PO (08:29)
[2024-05-10] MEDS: GABAPENTIN 300 MG CAPSULE PO ×3 (08:29→17:10)
[2024-05-10] MEDS: LOSARTAN POTASSIUM 50 MG TABLET PO (08:29)
[2024-05-10] MEDS: PANTOPRAZOLE SODIUM IV 40 MG VIAL IV PUSH (08:30)
[2024-05-10] MEDS: ENOXAPARIN 40 MG/0.4 ML SYRINGE SUB-Q (08:31)
[2024-05-10] MEDS: diphenhydrAMINE HCl INJ 50 MG/ML VIAL IV PUSH (08:34)
--- NOTE | 2024-05-10 09:28 | PM.IMPN ---
Progress Note: A&P Assessment and Plan (1) Enteritis: Code(s): K52.9 - Noninfective gastroenteritis and colitis, unspecified Status: Inactive Assessment and Plan: - gi consult - clear liquid diet- advance if tolerated - egd on thursday- npo at midnight - zofran prn (2) Abdominal pain: Qualifiers: Abdominal location: epigastric Qualified Code(s): R10.13 - Epigastric pain Code(s): R10.9 - Unspecified abdominal pain Status: Acute Assessment and Plan: - surgery eval given persistent n/v - notes reviewed: The patient has had intractable nausea and vomiting despite bowel rest and conservative measures. He underwent EGD today which showed evidence of gastritis. His abdominal x-ray yesterday showed no evidence of obstruction. I do not think we will need to repeat a CT at this point, but a Gastrografin small-bowel follow-through would be beneficial to assess further. He does have a contrast allergy, but we can pre treat him with steroids and Benadryl to help prevent any allergic reaction. Will start hydrocortisone IV today and plan for small-bowel follow-through tomorrow. Continue other supportive measures at this time. Will follow with serial abdominal exams. - surgery was consulted - abd series, small bowl follow thou (Benadryl,steroid to pretreat). (3) Nonalcoholic fatty liver disease: Code(s): K76.0 - Fatty (change of) liver, not elsewhere classified Status: Acute Assessment and Plan: - liver enzymes elevated - will need close follow up with GI as outpt (4) Hypokalemia: Code(s): E87.6 - Hypokalemia Status: Inactive Plan chronic htn- meds reviewed and losartan 50 mg and nctz 12.5 daily restarted. holding lasix that pt takes for BP chronic gerd- will add protonix chronic gout- not on any meds- monitor DVT prophylaxis: lovenox Glycemic control: na Code Status: FULL CODE Time Spent With Patient Time with patient: Greater than 35 minutes Subjective Date/time seen: 05/10/24 09:28 Interval history: Narrative: HPI narrative: 49 YEARS OLD WHITE MALE with PMH/o diverticulitis, hypertension and umbilical hernia repair admitted from ED for c/o abd pain, n/v/d. Symptoms started few hours prior to him arriving to ed. He reports vomiting x 3 and 1 episode of diarrhea with abd discomfort. Of note- he was admitted to [facility] on 05/03 and discharged 05/04 for the same symptoms. Notes reviewed: CT is concerning for possible small bowel obstruction. He is unable to undergo small-bowel follow-through given contrast allergy. Will conservatively manage at this time with bowel rest, IV fluids. Should he have vomiting and NG tube will need to be placed. Repeating a KUB in the morning to assess small bowel versus ileus. If he does not improve with conservative management will need to consult surgery. GI was consulted this am - 05/07. EGD on Thursday. 05/07- pt is seen and examined. he is doing ok overall, reports some abd cramping but no n/v since been here. Home meds reviewed- pt is taking losartan/hctz and hctz separately- clarified and p[t states that his machine pie maker ordered that in addition to lasic that was for BP and not edema. Pt doesnot drink or smokes. 05/08- pt is seen and examined this am. 1 BM last night. Reports nausea after drinking apple clear ensure. 05/09- surgery consulted. NO nausea/vomiting today so far completed EGD with GI 05/10- abd series today, small bowel follow through (benadryl and steroid to pretreat). Review of Systems Constitutional: Constitutional: Denies chills ENT: Denies nasal congestion Cardiovascular: Cardiovascular: Denies chest pain Respiratory: Respiratory: Denies chest congestion and Denies cough Gastrointestinal: Gastrointestinal: Reports abdominal pain, Reports bloating, Reports diarrhea, Reports nausea and Reports vomiting Genitourinary: Genitourinary: Denies hematuria Musculoskeletal: Musculoskeletal:
[2024-05-10] MEDS: POTASSIUM CHLORIDE 20 MEQ ER TABLET PO (11:59)
--- NOTE | 2024-05-10 13:51 | WPDGIPROGNO ---
Progress Note: A&P Assessment and Plan (1) Nausea & vomiting: Qualifiers: Vomiting type: bilious vomiting Qualified Code(s): R11.14 - Bilious vomiting Code(s): R11.2 - Nausea with vomiting, unspecified Status: Acute Assessment and Plan: resolved SBFT reviewed and normal appreciate surgery recommendations egd with push enteroscopy normal jejunum will advance diet as tolerated (2) Abdominal pain: Qualifiers: Abdominal location: epigastric Qualified Code(s): R10.13 - Epigastric pain Code(s): R10.9 - Unspecified abdominal pain Status: Acute (3) Abnormal small bowel x-ray: Code(s): R93.3 - Abnormal findings on diagnostic imaging of other parts of digestive tract Status: Acute Assessment and Plan: reviewed and normal Subjective Date/time seen: 05/10/24 13:51 Interval history: egd with push enteroscopy no major findings now he is doing much better and tolerating liquid diet Review of Systems Review of Systems: All systems reviewed & are unremarkable except as noted in HPI and below Exam Const: General: comfortable and no acute distress HENMT: Face/Nose/Sinus: Normal nares present Eyes: General: appearance normal, both eyes and all related structures Neck: Neck: no JVD Resp: Auscultation: clear to auscultation bilaterally Cardio: Rate: regular rate Rhythm: regular rhythm GI: Inspection: non-distended GI Palp: Yes Soft to palpation and No Tenderness to palpation present (GI) Auscultation: normal bowel sounds Skin: General skin exam: normal color Neuro: General: gait normal Speech: normal speech Extrem: General: normal to inspection Psych: Mental Status: mental status grossly normal Objective Data Vital Signs Vital Signs: Vital Signs - 24 hr 05/09/24 16:00 05/09/24 20:00 05/10/24 00:00 Temperature 98.1 F 97.8 F Pulse Rate 86 67 Respiratory Rate 18 20 Blood Pressure 120/42 L 114/58 L Pulse Oximetry 98 97 Oxygen Delivery Room Air 05/10/24 08:00 Temperature Pulse Rate Respiratory Rate Blood Pressure Pulse Oximetry Oxygen Delivery Room Air Intake/Output Intake/Output: Intake & Output 05/07/24 05/08/24 05/09/24 05/10/24 23:59 23:59 23:59 23:59 Intake Total 3395 2650 2400 1782 Output Total 250 1450 500 975 Balance 3145 1200 1900 807 Meds/Results Medications: Active Medications Generic Name Dose Route Start Last Admin Trade Name Freq PRN Reason Stop Dose Admin Acetaminophen 650 mg 05/07/24 03:50 Acetaminophen 325 Mg Tablet PO Q4H PRN Mild Pain (1-3) or Fever Hydrocodone Bitart/Acetaminophen 1 tab 05/07/24 03:50 05/09/24 20:54 Hydrocodone/Acetaminophen (*Crx) 5-325 Mg Tablet PO 1 tab Q4H PRN Administration Moderate Pain (4-6) Aspirin 81 mg 05/08/24 09:00 05/10/24 08:29 Aspirin 81 Mg Enteric Tablet PO 81 mg DAILY SALEEM Administration Enoxaparin Sodium 40 mg 05/07/24 09:00 05/10/24 08:31 Enoxaparin 40 Mg/0.4 Ml Syringe SUB-Q 40 mg DAILY SALEEM Administration Gabapentin 300 mg 05/07/24 17:00 05/10/24 11:59 Gabapentin 300 Mg Capsule PO 300 mg TID SALEEM Administration Hydrochlorothiazide 12.5 mg 05/08/24 09:00 05/10/24 08:29 Hydrochlorothiazide 12.5 Mg Capsule PO 12.5 mg QAM SALEEM Administration Potassium Chloride/Dextrose/Sod Cl 1,000 mls @ 150 mls/hr 05/07/24 03:50 05/10/24 11:59 Kcl 20 Meq/D5/0.45% Sod Chl IV CONT 150 mls/hr .Q6H40M SLAEEM Administration Losartan Potassium 50 mg 05/08/24 09:00 05/10/24 08:29 Losartan Potassium 50 Mg Tablet PO 50 mg QAM SALEEM Administration Morphine Sulfate 2 mg 05/07/24 03:50 05/09/24 16:31 Morphine Sulfate (*Crx) 2 Mg/Ml Inj IV PUSH 2 mg Q4H PRN Administration Pain Rated 7-10 Ondansetron HCl 4 mg 05/07/24 03:50 05/08/24 13:05 Ondansetron Inj 4 Mg/2 Ml Vial IV PUSH 4 mg Q6H PRN Administration Nausea And Vomiting Pantopra
--- NOTE | 2024-05-10 15:09 | PM.PNGS ---
Progress Note: A&P Assessment and Plan (1) Nausea & vomiting: Qualifiers: Vomiting type: bilious vomiting Qualified Code(s): R11.14 - Bilious vomiting Code(s): R11.2 - Nausea with vomiting, unspecified Status: Acute Assessment and Plan: Resolve. Reviewed SBFT with patient. Advance diet as tolerated. No surgical recommendations at this time. Will sign off. (2) Abdominal pain: Qualifiers: Abdominal location: epigastric Qualified Code(s): R10.13 - Epigastric pain Code(s): R10.9 - Unspecified abdominal pain Status: Acute Subjective Subjective Date/Time Seen: 05/10/24 15:09 Interval history: No abdominal pain. Bowels moving. No nausea. Exam GI: Inspection: non-distended GI Palp: Yes Soft to palpation, No Tenderness to palpation present (GI) and No Guarding due to palpation present (GI) Percussion: Yes normal to percussion Auscultation: normal bowel sounds Objective Data Vital Signs Vital Signs: Vital Signs - 24 hr 05/09/24 16:00 05/09/24 20:00 05/10/24 00:00 Temperature 36.7 C 36.6 C Pulse Rate 86 67 Respiratory Rate 18 20 Blood Pressure 120/42 L 114/58 L Pulse Oximetry 98 97 Oxygen Delivery Room Air 05/10/24 08:00 Temperature Pulse Rate Respiratory Rate Blood Pressure Pulse Oximetry Oxygen Delivery Room Air Intake/Output Intake/Output: Intake & Output 05/07/24 05/08/24 05/09/24 05/10/24 23:59 23:59 23:59 23:59 Intake Total 3395 2650 2400 1782 Output Total 250 1450 500 975 Balance 3145 1200 1900 807 Meds/Results Medications: Active Medications Generic Name Dose Route Start Last Admin Trade Name Freq PRN Reason Stop Dose Admin Acetaminophen 650 mg 05/07/24 03:50 Acetaminophen 325 Mg Tablet PO Q4H PRN Mild Pain (1-3) or Fever Hydrocodone Bitart/Acetaminophen 1 tab 05/07/24 03:50 05/09/24 20:54 Hydrocodone/Acetaminophen (*Crx) 5-325 Mg Tablet PO 1 tab Q4H PRN Administration Moderate Pain (4-6) Aspirin 81 mg 05/08/24 09:00 08/20/24 08:29 Aspirin 81 Mg Enteric Tablet PO 81 mg DAILY SALEEM Administration Enoxaparin Sodium 40 mg 05/07/24 09:00 05/10/24 08:31 Enoxaparin 40 Mg/0.4 Ml Syringe SUB-Q 40 mg DAILY SALEEM Administration Gabapentin 300 mg 05/07/24 17:00 05/10/24 11:59 Gabapentin 300 Mg Capsule PO 300 mg TID SALEEM Administration Hydrochlorothiazide 12.5 mg 05/08/24 09:00 05/10/24 08:29 Hydrochlorothiazide 12.5 Mg Capsule PO 12.5 mg QAM SALEEM Administration Potassium Chloride/Dextrose/Sod Cl 1,000 mls @ 150 mls/hr 05/07/24 03:50 05/10/24 11:59 Kcl 20 Meq/D5/0.45% Sod Chl IV CONT 150 mls/hr .Q6H40M SALEEM Administration Losartan Potassium 50 mg 05/08/24 09:00 05/10/24 08:29 Losartan Potassium 50 Mg Tablet PO 50 mg QAM SALEEM Administration Morphine Sulfate 2 mg 05/07/24 03:50 05/09/24 16:31 Morphine Sulfate (*Crx) 2 Mg/Ml Inj IV PUSH 2 mg Q4H PRN Administration Pain Rated 7-10 Ondansetron HCl 4 mg 05/07/24 03:50 05/08/24 13:05 Ondansetron Inj 4 Mg/2 Ml Vial IV PUSH 4 mg Q6H PRN Administration Nausea And Vomiting Pantoprazole Sodium 40 mg 05/10/24 09:00 05/10/24 08:30 Pantoprazole Sodium Iv 40 Mg Vial IV PUSH 40 mg QAM SALEEM Administration Prochlorperazine Edisylate 10 mg 05/08/24 13:31 05/08/24 13:45 Prochlorperazine Edisylate 10 Mg/2 Ml Vial IV PUSH 10 mg Q6H PRN Administration Nausea And Vomiting Radiology Results: ITS Impressions Abdomen X-Ray 05/08/24 17:57 IMPRESSION: Bilateral nephrolithiasis Nonspecific bowel gas pattern Small Bowel X-Ray 05/10/24 10:57 IMPRESSION: 1. Normal small bowel series. Labs Labs: Laboratory Results - last 24 hr 05/09/24 05/10/24 17:05 06:54 WBC 5.0 RBC 4.60 Hgb 14.7 Hct 42.9 MCV 93.3 MCH 32.0 MCHC 34.3 RDW 13.1 Plt Count 187 MPV 10.9 H Sodium 137 Potass
[2024-05-10 16:00] VITALS: BP 141/73; PULSE 82; RESP 20; TEMP 36.6; O2SAT 98
[2024-05-10 21:04] VITALS: BP 117/69; PULSE 63; RESP 18; TEMP 36.6; O2SAT 95
[2024-05-11] MEDS: KCL 20 MEQ/D5/0.45% SOD CHL 1,000 ML 150 ML IV CONT (04:00)
[2024-05-11 06:06] VITALS: BP 102/62; PULSE 70; RESP 18; TEMP 36.6; O2SAT 100
[2024-05-11 06:36] LABS: Hematocrit 37.8 % (42.0-52.0); Hemoglobin 12.6 g/dL (14.0-18.0); Mean Corpuscular HGB Conc 33.3 g/dl (32-36); Mean Corpuscular Hemoglobin 31.7 pg (26-34); Mean Platelet Volume 11.2 fl (7.4-10.4); Platelet Count Result 172 k/mm3 (150-375); Red Blood Count 3.98 M/mm3 (4.6-6.20); Red Cell Distribution Width 13.2 % (11.5-14.5); White Blood Count 7.9 K/mm3 (4.5-10.0)
[2024-05-11 06:49] LABS: Alanine Aminotransferase 57 U/L (6-50); Alkaline Phosphatase 44 U/L (38-126); Anion Gap 6 mmol/L (4-12); Aspartate Amino Transferase 50 U/L (17-59); Bilirubin,Total 0.5 mg/dL (0.2-1.3); Blood Urea Nitrogen 7 mg/dL (9-20); Calcium 8.4 mg/dL (8.4-10.2); Carbon Dioxide 27 mmol/L (22-30); Chloride 104 mmol/L (98-107); Estimated CRCL calculation 112 ml/min; Estimated Glomerular Filt Rate > 60; Glucose 121 mg/dL (65-110); Potassium 3.4 mmol/L (3.4-5.0); Sodium 137 mmol/L (137-145)
[2024-05-11] MEDS: LOSARTAN POTASSIUM 50 MG TABLET PO (08:29)
[2024-05-11] MEDS: ASPIRIN 81 MG ENTERIC TABLET PO (08:29)
[2024-05-11] MEDS: PANTOPRAZOLE SODIUM IV 40 MG VIAL IV PUSH (08:29)
[2024-05-11] MEDS: GABAPENTIN 300 MG CAPSULE PO (08:29)
[2024-05-11] MEDS: ENOXAPARIN 40 MG/0.4 ML SYRINGE SUB-Q (08:29)
[2024-05-11] MEDS: hydroCHLOROthiazide 12.5 MG CAPSULE PO (08:29)
--- NOTE | 2024-05-11 11:20 | PM.DS ---
DS: Admitting Diagnosis Discharge Date 05/11/2024 Admitting Diagnosis abd pain DS: Discharge Diagnosis Discharge Diagnosis (1) Enteritis: Code(s): K52.9 - Noninfective gastroenteritis and colitis, unspecified Status: Inactive Assessment and Plan: - gi consult and surgery consult - EGD shows gsatritis - SBT was nl - diarrhea better ok to dc pt today (2) Abdominal pain: Qualifiers: Abdominal location: epigastric Qualified Code(s): R10.13 - Epigastric pain Code(s): R10.9 - Unspecified abdominal pain Status: Acute Assessment and Plan: As per surgery MD The patient has had intractable nausea and vomiting despite bowel rest and conservative measures. He underwent EGD today which showed evidence of gastritis. His abdominal x-ray yesterday showed no evidence of obstruction. I do not think we will need to repeat a CT at this point, but a Gastrografin small-bowel follow-through would be beneficial to assess further. He does have a contrast allergy, but we can pre treat him with steroids and Benadryl to help prevent any allergic reaction. Will start hydrocortisone IV today and plan for small-bowel follow-through tomorrow. Reviewed SBFT with patient. Advance diet as tolerated. No surgical recommendations at this time (3) Nonalcoholic fatty liver disease: Code(s): K76.0 - Fatty (change of) liver, not elsewhere classified Status: Acute Assessment and Plan: - liver enzymes elevated pt can follow with PCP - pt lfts worsen can PCp can refer to GI MD (4) Hypokalemia: Code(s): E87.6 - Hypokalemia Status: Inactive Assessment and Plan: corrected Plan chronic htn- meds reviewed and losartan 50 mg and Hctz 12.5 daily restarted. chronic gerd- will add protonix chronic gout- not on any med DS: Summary Hospital Course Hospital Course: GI was consulted this am - 05/07. EGD on Thursday. 05/07- pt is seen and examined. he is doing ok overall, reports some abd cramping but no n/v since been here. Home meds reviewed- pt is taking losartan/hctz and hctz separately- clarified and p[t states that his charger ordered that in addition to lasic that was for BP and not edema. Pt doesnot drink or smokes. 05/08- pt is seen and examined this am. 1 BM last night. Reports nausea after drinking apple clear ensure. 05/09- surgery consulted. NO nausea/vomiting today so far completed EGD with GI 05/10- abd series today, small bowel follow through (benadryl and steroid to pretreat). 05/11- gi consult and surgery consulted - EGD shows gastritis started on protonix - SBT was nl - diarrhea better ok to dc pt today Time Spent with Patient Time attestation: Total time spent providing and/or coordinating discharge services:40 minutes on day of dc Exam GI: Inspection: non-distended GI Palp: Yes Soft to palpation, No Tenderness to palpation present (GI) and No Guarding due to palpation present (GI) Percussion: Yes normal to percussion Auscultation: normal bowel sounds DS: Data Data Completed and Pending Completed studies during hospitalization: Pending at discharge 05/09/24 10:27 Surgical [PTH] Routine Labs on day of discharge: Labs from last 24 hours 05/11/24 05:52 WBC 7.9 RBC 3.98 L Hgb 12.6 L Hct 37.8 L MCV 95.0 MCH 31.7 MCHC 33.3 RDW 13.2 Plt Count 172 MPV 11.2 H Sodium 137 Potassium 3.4 Chloride 104 Carbon Dioxide 27 Anion Gap 6 BUN 7 L Creatinine 1.00 Estim Creat Clear Calc 112 Estimated GFR > 60 Glucose 121 H Calcium 8.4 Total Bilirubin 0.5 AST 50 ALT 57 H Alkaline Phosphatase 44 Total Protein 5.0 L Albumin 3.0 L Discharge Plan Discharge Attending physician on discharge: Farrah Pennington Consulting providers: Joo Azevedo Discharging Clinician: Farrah Pennington Anticipated Discharge Date/Time: 05/11/24 11:18 Patient Disposition: Home
== END 2024-05-11 11:45 | disposition home or self-care (01) | DRG 392 ==
PROVIDERS: Internal Medicine Gastroenterology; Nurse Practitioner; Admitting Provider Internal Medicine; PCP Family Medicine; Visit Provider Family Medicine
PROC: 0DJ08ZZ Inspection of Upper Intestinal Tract, Via Natural or Artificial Opening Endoscopic (ICD-10-PCS; CPT 43235; principal; 2024-05-09 16:15)
DX: K29.70 Gastritis, unspecified, without bleeding (principal); Z68.41 Body mass index [BMI] 40.0-44.9, adult; K76.0 Fatty (change of) liver, not elsewhere classified; E87.6 Hypokalemia; I10 Essential (primary) hypertension; K21.9 Gastro-esophageal reflux disease without esophagitis; M10.9 Gout, unspecified; E66.01 Morbid (severe) obesity due to excess calories; Z87.442 Personal history of urinary calculi
CPT/HCPCS: 36415; 74018; 74250; 80053; 82948; 83036; 85027; 88305; 96365; 96366; 96372; 96375; A9270; G0378; J0780; J1200; J1650; J1720; J2270; J2405; J2470; J2704; J3480; J7040; J7120

== ENCOUNTER 2024-05-12 12:15 | Emergency (ER) | payer OTHER, SELFPAY ==
[2024-05-12] VITALS (8 sets, daily range): BP systolic 127–160; BP diastolic 80–95; PULSE 53–83; RESP 16–18; TEMP 36.7–37; O2SAT 97–100
--- NOTE | ~2024-05-12 | CT_ITS ---
EXAMINATION: CT abdomen pelvis wo con DATE: 05/12/2024 14:50 INDICATION: Abdominal pain. Vomiting. TECHNIQUE: Computed tomography (CT) of the abdomen and pelvis was performed without intravenous contr ast. Automated exposure control and iterative reconstruction technique were employed. The dose-length product was 1543.48 mGy-cm. COMPARISON: CT abdomen and pelvis 05/06/2024 FINDINGS: The visualized portions of the lung bases demonstrate mild atelectasis. A calcified left ovidio ng nodule is consistent with old granulomatous disease. There is a small right pleural effusion. The heart size is normal. No pericardial effusion. There is wall thickening of the distal esophagus. Ther e is a small sliding hiatal hernia. There is mild subcarinal lymphadenopathy. There is diffuse hepati c steatosis. There is mild splenomegaly. The gallbladder, pancreas, and adrenal glands are normal. Th ere is a 5.6 cm cyst in right kidney. There are 9 stones in right kidney measuring up to 6 mm. There is a 3 stones in left kidney measuring up to 6 mm stone. There is diverticulosis of the colon. There is wall thickening in the sigmoid colon. The appendix is normal. There is wall thickening of the prox imal jejunum. There is a moderate volume of ascites. There is mild periportal lymphadenopathy, likely reactive. There is prominent fat in the inguinal canals that may be hernias. There is mild chronic l oss of multiple thoracic vertebral bodies. There is mild thoracic and lumbar spondylosis. IMPRESSION: 1. Wall thickening of the distal esophagus, consistent with edema versus esophagitis. Small sliding h iatal hernia. 2. Wall thickening of the proximal jejunum, consistent with edema versus enteritis. 3. Wall thickening of the sigmoid colon, likely chronic diverticulitis. 4. Moderate volume of ascites. 5. Mild periportal and subcarinal lymphadenopathy, likely reactive. 6. Small right pleural effusion. Reviewed, dictated and finalized at location A. IMPRESSION: 1. Wall thickening of the distal esophagus, consistent with edema versus esopha gitis. Small sliding hiatal hernia. 2. Wall thickening of the proximal jejunum, consistent with edema versus enteri tis. 3. Wall thickening of the sigmoid colon, likely chronic diverticulitis. 4. Moderate volume of ascites. 5. Mild periportal and subcarinal lymphadenopathy, likely reactive. 6. Small right pleural effusion.
[2024-05-12 13:30] LABS: Basophils Absolute Auto 0.1 K/mm3 (0.0-0.1); Basophils Percent Auto 0.7 % (0.2-1.2); Eosinophils Absolute Auto 2.7 K/mm3 (0-0.3); Eosinophils Percent Auto 28.2 % (0-4.4); Hematocrit 48.8 % (42.0-52.0); Hemoglobin 16.9 g/dL (14.0-18.0); Immature Granulocyte Absolute 0.04 K/mm3 (0.00-0.031); Immature Granulocyte Percent A 0.4 % (0-0.5); Lymphocytes Absolute Auto 1.18 K/mm3 (0.9-3.2); Lymphocytes Percent Auto 12.3 % (18.3-44.2); Mean Corpuscular HGB Conc 34.6 g/dl (32-36); Mean Corpuscular Volume 92.4 fl (80-100); Mean Platelet Volume 10.6 fl (7.4-10.4); Monocytes Absolute Auto 0.3 K/mm3 (0.1-0.6); Monocytes Percent Auto 3.2 % (2.6-8.5); Neutrophils Absolute Auto 5.3 K/mm3 (1.3-6.7); Neutrophils Percent Auto 55.2 % (45.5-73.1); Platelet Count Result 228 k/mm3 (150-375); Red Blood Count 5.28 M/mm3 (4.6-6.20); Red Cell Distribution Width 13.4 % (11.5-14.5); White Blood Count 9.6 K/mm3 (4.5-10.0)
--- NOTE | 2024-05-12 13:39 | ED.NAVMDI ---
HPI - Nausea/Vomiting/Diarrhea General Chief complaint: Nausea/Vomiting/Diarrhea Stated complaint: vomiting Time Seen by Provider: 05/12/24 13:13 History of Present Illness HPI Narrative: 49-year-old male presenting with vomiting. Patient states that he was here for a week and was discharged yesterday. States that he was feeling well upon discharge. They sent him home with Protonix but no Zofran. States he woke up this morning in all of his symptoms returned. Complains of abdominal cramping, nausea and vomiting. States that his bowel movements have slowed down and he is no longer passing gas. Denies further complaints. Related Data Home Medications Medication Instructions Recorded Confirmed hydrochlorothiazide 25 mg tablet 25 mg PO DAILY 05/02/24 05/13/24 alpha lipoic acid 200 mg PO DAILY 05/03/24 05/13/24 aspirin 81 mg tablet,delayed 81 mg PO DAILY 05/03/24 05/13/24 release vitamin B complex 1 cap PO DAILY 05/03/24 05/13/24 Allergies Allergy/AdvReac Type Severity Reaction Status Date / Time shellfish derived Allergy Severe Swelling Verified 05/13/24 10:14 of Lip/Tongue/Throat Iodinated Contrast Media Allergy Mild Swelling Verified 05/13/24 10:14 latex Allergy Rash Verified 05/13/24 10:14 Review of Systems Review of Systems: All systems reviewed & are unremarkable except as noted in HPI and below PMFSH Past Medical History Medical History Abnormal small bowel x-ray COVID-19 virus detected Diverticulitis of large intestine with perforation and abscess without bleeding Elevated liver enzymes GERD (gastroesophageal reflux disease) Gout History of kidney stones Hypertension Previously on Lisinopril but no longer taking hyperventilates - lifestyle modification Nausea & vomiting Surgical History Surgical History H/O umbilical hernia repair 01/15/21 Laparoscopic umbilical hernia repair with Symbotex mesh, da Gurjit assisted History of colonoscopy History of esophagogastroduodenoscopy (EGD) Family History Family History Mother Hypertension Asthma Father Hypertension Family history of elevated blood lipids Carcinoma of colon Diabetes mellitus Grandparent Cerebrovascular accident Cancer Other Hypertension Social History Social History Social History: Smoking status: Never smoker Tobacco type: smokeless tobacco Smokeless tobacco user: chewing tobacco Second hand tobacco smoke exposure: No Additional smoking assessment comments: chews tobacco x20yrs Alcohol intake: never Substance use: never Substance use type: does not use Do You Feel Safe in your Home?: Yes Lack of Transportation: No Lack of Food: Never True Current Housing: I Have Housing Concerned About Future Housing: No Difficulty Paying Gas/Electric Bills: No Difficulty Paying for Meds: No Currently Unemployed: No Education: Don't Know Difficulty w/ Childcare or Family Care: No Living arrangements: with family Occupation/Education: occupation 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 EYES: PERRLA and EOMI. ENT: Mucous membranes tacky NECK: Supple. CHEST: Clear to auscultation. No respiratory distress. HEART: Regular rate and rhythm ABDOMEN: Soft, mild diffuse tenderness without guarding or rebound EXTREMITIES: Normal range of motion. No edema. SKIN: Warm, dry, no rash. NEURO: No focal deficits. Alert and oriented x3. PSYCH: Normal mood and affect. Cour
[2024-05-12 13:44] LABS: Add Urine Microscopic? YES; Appearance Urine Clear (Clear); Bacteria Urine None Seen /hpf; Bilirubin Urine Negative (Negative); Blood Urine Negative (Negative); Color Urine Dark Yellow (Yellow); Glucose Urine UA Negative (Negative); Ketones Urine 3+ mg/dL (Negative); Leukocyte Esterase Ur Negative LEU/UL (Negative); Nitrate Urine Negative (Negative); Protein Urine Trace mg/dL (Negative); RBC Urine 0-2 /hpf (0-2); Specific Grav Ur 1.022 (1.001-1.035); Squamous Epithelial Cell Urine None Seen /hpf (Few); Urobilinogen Urine 0.2 mg/dL (<2.0); WBC Urine 0-5 /hpf (0-3); pH Urine 5.5 (5.0-9.0)
[2024-05-12 13:46] LABS: Alanine Aminotransferase 86 U/L (6-50); Albumin Level 3.7 g/dL (3.5-5.1); Alkaline Phosphatase 54 U/L (38-126); Anion Gap 8 mmol/L (4-12); Aspartate Amino Transferase 57 U/L (17-59); Bilirubin,Total 1.2 mg/dL (0.2-1.3); Blood Urea Nitrogen 12 mg/dL (9-20); Calcium 8.8 mg/dL (8.4-10.2); Carbon Dioxide 29 mmol/L (22-30); Chloride 101 mmol/L (98-107); Estimated CRCL calculation 94 ml/min; Estimated Glomerular Filt Rate > 60; Glucose 118 mg/dL (65-110); Lipase 131 U/L (23-300); Potassium 3.9 mmol/L (3.4-5.0); Sodium 138 mmol/L (137-145)
[2024-05-12] MEDS: ONDANSETRON INJ 4 MG/2 ML VIAL IV PUSH (14:11)
[2024-05-12] MEDS: SODIUM CHLORIDE 0.9% IV 1,000 ML 999 ML IV CONT (14:11)
[2024-05-12] MEDS: PANTOPRAZOLE SODIUM IV 40 MG VIAL IV PUSH (14:11)
[2024-05-12] MEDS: HYDROmorphone HCL INJ (*CRX) 1 MG/ML SYR 0.5 MG IV PUSH (14:25)
[2024-05-12] MEDS: ONDANSETRON HCL ODT 4 MG TABLET PO (16:12)
== END 2024-05-12 17:40 | disposition home or self-care (01) ==
PROVIDERS: Emergency Medicine; Emergency Provider Emergency Medicine; PCP Family Medicine
DX: K52.9 Noninfective gastroenteritis and colitis, unspecified (principal); K20.90 Esophagitis, unspecified without bleeding; I10 Essential (primary) hypertension; K21.9 Gastro-esophageal reflux disease without esophagitis; M10.9 Gout, unspecified; F17.220 Nicotine dependence, chewing tobacco, uncomplicated; Z86.16 Personal history of COVID-19; Z87.442 Personal history of urinary calculi; Z79.82 Long term (current) use of aspirin; Z79.899 Other long term (current) drug therapy; R18.8 Other ascites; R93.3 Abnormal findings on diagnostic imaging of other parts of digestive tract
CPT/HCPCS: 36415; 74176; 80053; 81001; 83690; 85025; 96361; 96374; 96375; 99284; A9270; J1170; J2405; J2470; J7030

== ENCOUNTER 2024-06-09 09:44 | Observation (INO) | payer OTHER, SELFPAY ==
[2024-06-09] VITALS (8 sets, daily range): BP systolic 106–134; BP diastolic 68–84; PULSE 74–95; RESP 16–20; TEMP 36.4–36.7; O2SAT 98–100; BMI 36.7
--- NOTE | ~2024-06-09 | CT_ITS ---
EXAMINATION: CT abdomen pelvis wo con DATE: 06/09/2024 11:42 INDICATION: Left lower quadrant abdominal pain. TECHNIQUE: Computed tomography (CT) of the abdomen and pelvis was performed without intravenous contr ast. Automated exposure control and iterative reconstruction technique were employed. The dose-length product was 1708.44 mGy-cm. COMPARISON: CT abdomen and pelvis 05/12/2024 FINDINGS: The visualized portions of the lung bases demonstrate mild atelectasis. There is mild scarr ing in paraspinal right lower lobe. A calcified left lung nodule is consistent with old granulomatous disease. No pleural effusion. The heart size is normal. No pericardial effusion. There is wall thick ening of the distal esophagus. There is diffuse hepatic steatosis. The gallbladder, spleen, pancreas, and adrenal glands are normal. There is a 5.5 cm cyst in right kidney. There are 8 stones in right k idney measuring up to 5 mm. There are 3 stones in left kidney measuring up to 4 mm. There is prominen t fat in the inguinal canals that may be hernias. There are scattered diverticula in the colon. There is wall thickening in the sigmoid colon with surrounding fat stranding, consistent with diverticulit is. The appendix is normal. There are no dilated loops of bowel. There is mild subcarinal and peripor clarisse lymphadenopathy. There is no free intraperitoneal fluid. There is mild thoracic and lumbar spondy losis. There are multiple chronic compression fractures in thoracic spine. IMPRESSION: 1. Acute sigmoid diverticulitis. No perforation or abscess. 2. Wall thickening of the distal esophagus again seen, consistent with edema versus esophagitis. 3. Stable mild periportal and subcarinal lymphadenopathy, likely reactive. 4. Bilateral nonobstructing kidney stones. Reviewed, dictated and finalized at location A. IMPRESSION: 1. Acute sigmoid diverticulitis. No perforation or abscess. 2. Wall thickening of the distal esophagus again seen, consistent with edema ve rsus esophagitis. 3. Stable mild periportal and subcarinal lymphadenopathy, likely reactive. 4. Bilateral nonobstructing kidney stones.
--- NOTE | ~2024-06-09 | XR_ITS ---
XR ankle RT 2V Ordering provider: Valerie Cardenas APRN History: . suspect gout flare . Comparison: None. FINDINGS: BONES: Missing inferior portion of the medial malleolus is noted which may be due to erosive process like gout 7. Old trauma cannot be excluded. No acute fracture or dislocation. JOINT SPACES: Normal. SOFT TISSUES: Soft tissue swelling over the medial and lateral malleoli. IMPRESSION: No acute osseous abnormality of the right ankle. Missing inferior portion of the medial malleolus which may be due to old trauma or erosive process raquel jones gout. Reviewed, dictated and finalized at location A. IMPRESSION: No acute osseous abnormality of the right ankle. Missing inferior portion of the medial malleolus which may be due to old trauma or erosive process like gout.
[2024-06-09 10:12] LABS: Basophils Percent Auto 0.7 % (0.2-1.2); Eosinophils Absolute Auto 0.9 K/mm3 (0-0.3); Eosinophils Percent Auto 14.8 % (0-4.4); Hematocrit 44.1 % (42.0-52.0); Immature Granulocyte Absolute 0.01 K/mm3 (0.00-0.031); Immature Granulocyte Percent A 0.2 % (0-0.5); Lymphocytes Absolute Auto 0.82 K/mm3 (0.9-3.2); Lymphocytes Percent Auto 14.1 % (18.3-44.2); Mean Corpuscular Hemoglobin 31.4 pg (26-34); Mean Corpuscular Volume 92.3 fl (80-100); Mean Platelet Volume 11.2 fl (7.4-10.4); Monocytes Absolute Auto 0.4 K/mm3 (0.1-0.6); Neutrophils Absolute Auto 3.7 K/mm3 (1.3-6.7); Neutrophils Percent Auto 64.2 % (45.5-73.1); Platelet Count Result 188 k/mm3 (150-375); Red Blood Count 4.78 M/mm3 (4.6-6.20); Red Cell Distribution Width 12.6 % (11.5-14.5); White Blood Count 5.8 K/mm3 (4.5-10.0)
[2024-06-09 10:22] LABS: Lactic Acid Reflex 1.1 mmol/L (0.7-2.0)
[2024-06-09 10:23] LABS: Alanine Aminotransferase 80 U/L (6-50); Albumin Level 4.8 g/dL (3.5-5.1); Alkaline Phosphatase 67 U/L (38-126); Anion Gap 11 mmol/L (4-12); Aspartate Amino Transferase 54 U/L (17-59); Bilirubin,Total 1.5 mg/dL (0.2-1.3); Blood Urea Nitrogen 7 mg/dL (9-20); Calcium 9.7 mg/dL (8.4-10.2); Carbon Dioxide 25 mmol/L (22-30); Chloride 100 mmol/L (98-107); Estimated CRCL calculation 106 ml/min; Estimated Glomerular Filt Rate > 60; Glucose 97 mg/dL (65-110); Lipase 159 U/L (23-300); Potassium 3.8 mmol/L (3.4-5.0); Sodium 136 mmol/L (137-145)
[2024-06-09 10:48] LABS: Add Urine Microscopic? NO; Appearance Urine Clear (Clear); Bilirubin Urine Negative (Negative); Blood Urine Negative (Negative); Color Urine Yellow (Yellow); Glucose Urine UA Negative (Negative); Ketones Urine Trace mg/dL (Negative); Leukocyte Esterase Ur Negative LEU/UL (Negative); Nitrate Urine Negative (Negative); Protein Urine Negative (Negative); Specific Grav Ur 1.017 (1.001-1.035); Urobilinogen Urine 0.2 mg/dL (<2.0); pH Urine 5.5 (5.0-9.0)
[2024-06-09] MEDS: HYDROmorphone HCL INJ (*CRX) 1 MG/ML SYR IV PUSH ×2 (11:47→13:00)
[2024-06-09] MEDS: LACTATED RINGERS 1,000 ML 999 ML IV CONT (11:47)
[2024-06-09] MEDS: metroNIDAZOLE 500 MG/ISO 100ML 500 MG/100 ML BAG 100 MG IVPB ×2 (13:49→22:42)
[2024-06-09] MEDS: cefTRIAXone 2 GM/NS 100 ML 2 GM/100 ML BAG IVPB (13:50)
--- NOTE | 2024-06-09 13:59 | PM.IMHP ---
H&P: HPI History of Present Illness Date/Time: 06/09/24 13:59 Chief Complaint: Abdominal Pain Narrative: 49 y/o M presents here with abdominal pain with PMH of alcohol abuse (cessation in 2007), kidney stones, fatty liver, gout, chronic neuropathic pain, and diverticulitis with abscess formation. The patient presents here from home for further evaluation of left lower quadrant abdominal pain. HPI obtained through patient interview and chart review. Per chart review, patient was admitted from 05/07/2024 to 05/11/2024 with enteritis. EGD showed gastritis and a small-bowel follow-through which was normal. The patient was started on Protonix, continued as outpatient. Shortly after discharge he return to the emergency department on 05/12/2024 with reports of intractable nausea and vomiting. CT abdomen/pelvis showed edema of the esophagus an stomach with mild ascites, ongoing fatty liver, splenomegaly, and chronic diverticulitis. Patient was discharged home with Zofran. Patient then followed up with his PCP on 05/13/2024 for hospital follow-up. At this visit he reported ongoing GI bloating, abdominal fullness, and associated nausea without vomiting. Utilizing Zofran prescription with mild improvement in symptoms. Patient was then started on Augmentin x10 days, liquid diet times 72 hours then transition to brat diet, Carafate daily x2 weeks, continue PPI. Patient then presented back to his PCP on 05/18/2024 with same symptoms, however reports worsening in severity. He was directed to the emergency department for further evaluation and fluid repletion. Patient went to [place] [facility], however had waited for 5 hours and elected to leave without being seen. Patient called PCP, antibiotics were transitioned from Augmentin to Ciprofloxacin. Patient then returned to his PCP on 05/27/2024 where he reported continued intermittent loose stools and no vomiting x3 days while following a bland diet. Abdominal bloating/cramping somewhat improved. Had since finished the Carafate course. Patient instructed to continue Cipro, start Nexium, continue bland diet, GI referral placed, and stool cultures ordered. Patient was not able to complete the stool cultures. Patient now returning today with left lower quadrant pain and diarrhea. He reports the left lower abdominal pain has been ongoing for the past 4-5 days. He describes it as sharp/burning/stabbing, nonradiating, constant but severity varies, and with no aggravating/alleviating factors. Denies hematochezia, BRBPR, or melena. Denies fever, chills, or body aches. Initial VS at presentation: 97.6? F, HR 95, RR 16, 106/79, and 98% on RA ED workup showed: No leukocytosis, no anemia, sodium 136, creatinine 1.0 and GFR >60, total bilirubin 1.5, ALT 80, UA showed trace ketones. CT of the abdomen/pelvis showed acute sigmoid diverticulitis without perforation or abscess, wall thickening of the distal esophagus again seen consistent with edema versus esophagitis, stable mild periportal and subcarinal lymphadenopathy likely reactive, and bilateral nonobstructing kidney stones. Review of Systems Review of Systems: All systems reviewed & are unremarkable except as noted in HPI and below PMFSH Past Medical History Medical History (Updated 06/09/24 @ 14:15 by Carey Barraza, [employer]) Abnormal small bowel x-ray Diverticulitis of large intestine with perforation and abscess without bleeding Elevated liver enzymes GERD (gastroesophageal reflux disease) Gout History of kidney stones Hypertension Previously on Lisinopril but no longer taking hyperventilates - lifestyle modification Nausea & vomiting Surgical History Surgical History H/O umbilical hernia repair 01/15/21 Laparoscopic umbilical hernia repair with Symbotex mesh, da Gurjit assisted History of colonoscopy History of esophagogastroduodenoscopy (EGD) Family History Family History (Reviewed 05/27/24 @ 15:38 by
--- NOTE | 2024-06-09 14:06 | ADMGEN ---
This patient, Gelacio Boykin Jr., was admitted to 3 [facility] Surg Room 310-01. Patient/family oriented to hospital policies and general routines including ID bracelet, bed and alarms, visiting hours, pain management, procedures, bathroom and other care routines, personal items, smoking policy, room service/diet, and visiting hours. Information on how to activate the Rapid Response Team has been discussed. Patient/Family are encouraged to report perceived risks to care and to ask questions if they do not understand what they are told or what they should do.
[2024-06-09] MEDS: MORPHINE SULFATE (*CRX) 4 MG/ML INJ IV PUSH ×2 (14:37→19:50)
[2024-06-09] MEDS: SODIUM CHLORIDE 0.9% IV 1,000 ML 75 ML IV CONT (16:20)
[2024-06-09] MEDS: GABAPENTIN 300 MG CAPSULE PO (17:32)
--- NOTE | 2024-06-09 20:51 | ED.ABDPAIN ---
HPI - Abdominal Pain General Chief Complaint: Abdominal Pain Stated Complaint: abdominal pain Time Seen by Provider: 06/09/24 10:17 History of Present Illness HPI narrative: 49-year-old male with a past medical history significant for PC, hypertension, kidney stones, previous diverticulitis with abscess formation. He presents the emergency department today for persistent left lower quadrant abdominal pain. He states he resembles last time he had a flare-up of diverticulitis. He is currently undergoing antibiotic therapy and has completed his course of Augmentin without any improvement in his symptoms. Patient states that his pain is localized left lower quadrant, does not radiated to his groin or back, not associated chest pain or discomfort. No significant associated nausea or vomiting. No traumas recent illnesses. States he has been seen by both GI specialists and general surgeons with no planned further interventions but outpatient follow-up. He had upper endoscopy but no lower endoscopy recently. Denies any bleeding from the rectum or any bloody stool or dark tarry stools. Related Data Home Medications Medication Instructions Recorded Confirmed alpha lipoic acid 200 mg PO DAILY 05/03/24 06/09/24 aspirin 81 mg tablet,delayed 81 mg PO DAILY 05/03/24 06/09/24 release vitamin B complex 1 cap PO DAILY 05/03/24 06/09/24 esomeprazole magnesium 20 mg 20 mg PO DAILY 05/27/24 06/09/24 capsule,delayed release (Nexium 24HR) Allergies Allergy/AdvReac Type Severity Reaction Status Date / Time shellfish derived Allergy Severe Swelling Verified 06/09/24 13:59 of Lip/Tongue/Throat Iodinated Contrast Media Allergy Mild Swelling Verified 06/09/24 13:59 latex Allergy Rash Verified 06/09/24 13:59 Review of Systems Review of Systems: As [facility] Past Medical History Medical History Abnormal small bowel x-ray Diverticulitis of large intestine with perforation and abscess without bleeding Elevated liver enzymes GERD (gastroesophageal reflux disease) Gout History of kidney stones Hypertension Previously on Lisinopril but no longer taking hyperventilates - lifestyle modification Nausea & vomiting Surgical History Surgical History H/O umbilical hernia repair 01/15/21 Laparoscopic umbilical hernia repair with Symbotex mesh, da Gurjit assisted History of colonoscopy History of esophagogastroduodenoscopy (EGD) Family History Family History Mother Hypertension Asthma Father Hypertension Family history of elevated blood lipids Carcinoma of colon Diabetes mellitus Grandparent Cerebrovascular accident Cancer Other Hypertension Social History Social History Social History: Smoking status: Never smoker Tobacco type: smokeless tobacco Smokeless tobacco user: chewing tobacco Second hand tobacco smoke exposure: No Additional smoking assessment comments: chews tobacco x20yrs Alcohol intake: never Substance use: never Substance use type: does not use Do You Feel Safe in your Home?: Yes Lack of Transportation: No Lack of Food: Never True Current Housing: I Have Housing Concerned About Future Housing: No Difficulty Paying Gas/Electric Bills: No Difficulty Paying for Meds: No Currently Unemployed: No Education: Don't Know Difficulty w/ Childcare or Family Care: No Living arrangements: with family Occupation/Education: occupation 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
[2024-06-09] MEDS: HYDROcodone/acetaminophen (*CRX) 5-325 MG TABLET 1 TAB PO (22:39)
[2024-06-10] MEDS: SODIUM CHLORIDE 0.9% IV 1,000 ML 75 ML IV CONT ×2 (05:30→21:39)
[2024-06-10] MEDS: metroNIDAZOLE 500 MG/ISO 100ML 500 MG/100 ML BAG 100 MG IVPB ×3 (05:30→21:39)
[2024-06-10] MEDS: MORPHINE SULFATE (*CRX) 4 MG/ML INJ IV PUSH ×2 (05:34→17:16)
[2024-06-10 06:00] VITALS: BP 149/87; PULSE 71; RESP 20; TEMP 36.3; O2SAT 99
[2024-06-10] MEDS: HYDROcodone/acetaminophen (*CRX) 5-325 MG TABLET 1 TAB PO ×3 (06:32→18:31)
[2024-06-10 06:43] LABS: Basophils Percent Auto 0.8 % (0.2-1.2); Eosinophils Percent Auto 26.4 % (0-4.4); Hematocrit 41.8 % (42.0-52.0); Hemoglobin 13.9 g/dL (14.0-18.0); Immature Granulocyte Absolute 0.01 K/mm3 (0.00-0.031); Immature Granulocyte Percent A 0.3 % (0-0.5); Lymphocytes Absolute Auto 0.79 K/mm3 (0.9-3.2); Lymphocytes Percent Auto 20.8 % (18.3-44.2); Mean Corpuscular HGB Conc 33.3 g/dl (32-36); Mean Corpuscular Hemoglobin 31.4 pg (26-34); Mean Corpuscular Volume 94.4 fl (80-100); Mean Platelet Volume 11.5 fl (7.4-10.4); Monocytes Absolute Auto 0.3 K/mm3 (0.1-0.6); Monocytes Percent Auto 7.7 % (2.6-8.5); Neutrophils Absolute Auto 1.7 K/mm3 (1.3-6.7); Platelet Count Result 143 k/mm3 (150-375); Red Blood Count 4.43 M/mm3 (4.6-6.20); Red Cell Distribution Width 12.5 % (11.5-14.5); White Blood Count 3.8 K/mm3 (4.5-10.0)
[2024-06-10 06:53] LABS: Alanine Aminotransferase 69 U/L (6-50); Alkaline Phosphatase 60 U/L (38-126); Anion Gap 6 mmol/L (4-12); Aspartate Amino Transferase 45 U/L (17-59); Bilirubin,Total 1.5 mg/dL (0.2-1.3); Blood Urea Nitrogen 8 mg/dL (9-20); Calcium 8.8 mg/dL (8.4-10.2); Carbon Dioxide 28 mmol/L (22-30); Chloride 95 mmol/L (98-107); Estimated CRCL calculation 117 ml/min; Estimated Glomerular Filt Rate > 60; Glucose 82 mg/dL (65-110); Sodium 129 mmol/L (137-145)
[2024-06-10] MEDS: POTASSIUM CHLORIDE 10 MEQ ER TABLET PO (09:17)
[2024-06-10] MEDS: ASPIRIN 81 MG ENTERIC TABLET PO (09:17)
[2024-06-10] MEDS: VITAMIN B COMPLEX CAPSULE 1 CAP PO (09:17)
--- NOTE | 2024-06-10 09:17 | PM.IMPN ---
Progress Note: A&P Assessment and Plan (1) Diverticulitis of large intestine with perforation and abscess without bleeding: Code(s): K57.20 - Diverticulitis of large intestine with perforation and abscess without bleeding Status: Acute Assessment and Plan: - CT abd/pelvis: 1. Acute sigmoid diverticulitis. No perforation or abscess. 2. Wall thickening of the distal esophagus again seen, consistent with edema versus esophagitis. 3. Stable mild periportal and subcarinal lymphadenopathy, likely reactive. 4. Bilateral nonobstructing kidney stones. - CT abd/pelvis (previous, 05/12/24) 1. Wall thickening of the distal esophagus, consistent with edema versus esophagitis. Small sliding hiatal hernia. 2. Wall thickening of the proximal jejunum, consistent with edema versus enteritis. 3. Wall thickening of the sigmoid colon, likely chronic diverticulitis. 4. Moderate volume of ascites. 5. Mild periportal and subcarinal lymphadenopathy, likely reactive. 6. Small right pleural effusion. - failed outpatient abx: Augmentin and Ciprofloxacin - started on Flagyl and Rocephin - stool cultures and c. diff - IV fluids - trend renal function and wbc - Bentyl prn (exchanged KCL tablet to liquid to decrease irritant affects) and antiemetics prn --GI consulted, planning conservative management, outpatient colonoscopy (2) Elevated liver enzymes: Code(s): R74.8 - Abnormal levels of other serum enzymes Status: Acute Assessment and Plan: - previous hx of ETOH abuse, cessation in - fatty liver seen on CT - total bilirubin 1.5, AST 54, ALT 80, alk-phos 67 - previously 1.2, AST 57, ALT 86, alk-phos 54 - monitor (3) Nephrolithiasis: Code(s): N20.0 - Calculus of kidney Status: Acute Assessment and Plan: - CT abd/pelvis: There is a 5.5 cm cyst in right kidney. There are 8 stones in right kidney measuring up to 5 mm. There are 3 stones in left kidney measuring up to 4 mm. - no acute intervention indicated (4) Benign essential HTN: Code(s): I10 - Essential (primary) hypertension Status: Acute Assessment and Plan: Home medications: Losartan-hydrochlorothiazide 50-12.5 mg, HCTZ 25 mg, Lasix 20 mg 09/2023 TTE LVEF 65% - chronic, currently 121/84 --Hold HCTZ and furosemide while receiving fluids (would also consider switching to either HCTZ or furosemide at discharge) - monitor (5) Gout: Code(s): M10.9 - Gout, unspecified Status: Acute Assessment and Plan: Right foot erythema, edema, suspect gout --X-ray right foot --Colchicine 1.2mg followed by 0.6mg and then daily. Patient is aware to monitor for nausea/vomiting, diarrhea, discussed toxicity --Has been off allopurinol 2/2 cost, discuss options --Furosemide and hctz exacerbate gout Plan Diet: clear liquids GI Prophylaxis: Continue p.o. Nexium DVT Prophylaxis: SCDs Lines: Peripheral Code Status: Full code Time Spent With Patient Time: 45 minutes Subjective Date/time seen: 06/10/24 09:17 Interval history: No nausea or vomiting. Has had loose stools since April, last yesterday morning. Having lower abdominal pain and pain to right ankle, likely gout Review of Systems Review of Systems: All systems reviewed & are unremarkable except as noted in HPI and below Exam Narrative: General - Awake and alert. No acute distress Eyes - PERRLA, EOM intact ENT - No thrush, No erythema Neck - No noticeable or palpable swelling Lymph Nodes - No lymphadenopathy Cardiovascular - RRR no m/r/g, no JVD Lungs: Clear to auscultation, No wheezing, use of accessory muscles, no crackles or wheezes. Skin - Skin warm and dry, no wounds or rashes Abdomen - Normal bowel sounds, abdomen soft and nontender Extremities - No cyanosis or clubbing. Right ankle erythema and midfoot, tender to very light palpation Musculoskeletal - 5/5 strength, normal range of motion, Neurological ? A
[2024-06-10] MEDS: PANTOPRAZOLE 40 MG TABLET PO (09:18)
[2024-06-10] MEDS: hydroCHLOROthiazide 12.5 MG CAPSULE PO (09:18)
[2024-06-10] MEDS: FUROSEMIDE 20 MG TABLET PO (09:18)
[2024-06-10] MEDS: GABAPENTIN 300 MG CAPSULE PO ×3 (09:18→17:16)
[2024-06-10] MEDS: LOSARTAN POTASSIUM 50 MG TABLET PO (09:21)
--- NOTE | 2024-06-10 12:49 | WPDGICN ---
Assessment and Plan Assessment and plan (1) Diverticulitis of large intestine with perforation and abscess without bleeding: Code(s): K57.20 - Diverticulitis of large intestine with perforation and abscess without bleeding Status: Acute Assessment and Plan: - still with left lower quadrant pain tenderness on palpation but doing doing better today. No more loose stools - CT scan of abdomen and pelvis with acute sigmoid diverticulitis. No perforation or abscess. - Currently on Flagyl and Rocephin. - no leukocytosis - tolerating liquid diet - will need outpatient colonoscopy in 6-8 weeks after resolution of diverticulitis. last colonoscopy in 2019 for follow-up on diverticulitis. (2) Loose stools: Code(s): R19.5 - Other fecal abnormalities Status: Acute Assessment and Plan: improved, stool cultures and C diff ordered but no specimen obtained yet. (3) Gastritis: Code(s): K29.70 - Gastritis, unspecified, without bleeding Status: Acute Assessment and Plan: CT scan showed wall thickening of the distal esophagus consistent with edema versus esophagitis consistent with previous ct scan recent EGD revealed gastritis. Biopsies negative for H pylori currently denies any nausea or vomiting. tolerating liquid diet continue PPI. (4) Elevated liver enzymes: Code(s): R74.8 - Abnormal levels of other serum enzymes Status: Acute Assessment and Plan: likely related to fatty liver. further workup can be completed as outpatient. (5) Fatty liver: Code(s): K76.0 - Fatty (change of) liver, not elsewhere classified Status: Acute Assessment and Plan: fatty liver noted on CT scan, No cirrhosis. ascites noticed on previous CT scan has since resolved. acute hepatitis panel completed on May 04 was negative (6) Nephrolithiasis: Code(s): N20.0 - Calculus of kidney Status: Acute (7) Benign essential HTN: Code(s): I10 - Essential (primary) hypertension Status: Acute Plan Diet: clear liquids GI Prophylaxis: Continue p.o. Nexium DVT Prophylaxis: SCDs Lines: Peripheral Code Status: Full code GI Consult Note Consult date/time: 06/10/24 12:49 Reason for consult: chronic diverticulitis, ongoing GI complaints HPI: Gelacio Adhikari Lucretia Toscano is a 49 year old male with past medical and surgical history of diverticulitis with abscess, GERD, gout, kidney stones, hypertension and umbilical hernia repair admitted to [facility] for diverticulitis. For the past month, he been having issues with intermittent nausea, vomiting, diarrhea, and abdominal pain. Initially Admitted to [place] on for small bowel obstruction that was treated medically. CT scan showed small bowel obstruction and hepatomegaly. He then return to [place] ER on 05/07 with admission from for recurrent vomiting and burning sensation in mid abdomen. Repeat CT scan showed suggestion of wall thickening in the proximal jejunum with associated stranding in the adjacent small bowel mesentery suspicious for enteritis. No dilation to suggest obstruction. No pneumatosis or portal venous gas. Small amount of ascites scattered throughout the abdomen and pelvis. No abscess or free intraperineal gas. Follow up EGD revealed gastritis, the proximal jejunum was normal. Small-bowel follow-through completed on May 10 with normal small bowel series. He was started on PPI, eventually zofran and carafate was added as outpt for on going symptoms. Augmentin and ciprofloxacin prescribed as outpatient for chronic diverticulitis. He presented back to the ER yesterday for complaints of left lower quadrant pain and on going loose stools. Currently denies any nausea or vomiting. CT scan of abdomen and pelvis on 06/09/2024 revealed acute sigmoid diverticulitis. No perforation or abscess. Wall thickening of the distal esophagus again seen, consistent with edema
[2024-06-10 13:56] VITALS: BMI 36.7
[2024-06-10 14:00] VITALS: BP 118/71; PULSE 89; RESP 20; TEMP 36.5; O2SAT 99
[2024-06-10] MEDS: COLCHICINE 0.6 MG TABLET 1.2 MG PO (17:15)
[2024-06-10] MEDS: COLCHICINE 0.6 MG TABLET PO (18:31)
[2024-06-10 20:00] VITALS: PULSE 82; RESP 18; O2SAT 97
[2024-06-10 20:22] VITALS: BP 117/68; PULSE 82; RESP 18; TEMP 37.3; O2SAT 97
[2024-06-10 21:26] VITALS: O2SAT 97
[2024-06-11] MEDS: metroNIDAZOLE 500 MG/ISO 100ML 500 MG/100 ML BAG 100 MG IVPB ×3 (05:39→21:05)
[2024-06-11 06:00] VITALS: BP 123/82; PULSE 80; RESP 20; TEMP 36.4; O2SAT 98
[2024-06-11 08:32] LABS: Hematocrit 45.9 % (42.0-52.0); Hemoglobin 15.1 g/dL (14.0-18.0); Mean Corpuscular HGB Conc 32.9 g/dl (32-36); Mean Corpuscular Hemoglobin 30.7 pg (26-34); Mean Corpuscular Volume 93.3 fl (80-100); Platelet Count Result 159 k/mm3 (150-375); Red Blood Count 4.92 M/mm3 (4.6-6.20); Red Cell Distribution Width 12.3 % (11.5-14.5); White Blood Count 4.9 K/mm3 (4.5-10.0)
[2024-06-11] MEDS: LOSARTAN POTASSIUM 50 MG TABLET PO (08:41)
[2024-06-11] MEDS: HYDROcodone/acetaminophen (*CRX) 5-325 MG TABLET 1 TAB PO ×2 (08:41→17:16)
[2024-06-11] MEDS: GABAPENTIN 300 MG CAPSULE PO ×3 (08:41→17:16)
[2024-06-11] MEDS: COLCHICINE 0.6 MG TABLET PO ×2 (08:41→17:16)
[2024-06-11] MEDS: ASPIRIN 81 MG ENTERIC TABLET PO (08:41)
[2024-06-11] MEDS: POTASSIUM CHLORIDE 10 MEQ ER TABLET PO (08:41)
[2024-06-11] MEDS: VITAMIN B COMPLEX CAPSULE 1 CAP PO (08:41)
[2024-06-11] MEDS: PANTOPRAZOLE 40 MG TABLET PO (08:41)
[2024-06-11 09:13] LABS: Alanine Aminotransferase 59 U/L (6-50); Albumin Level 4.5 g/dL (3.5-5.1); Alkaline Phosphatase 64 U/L (38-126); Anion Gap 12 mmol/L (4-12); Aspartate Amino Transferase 36 U/L (17-59); Bilirubin,Total 1.7 mg/dL (0.2-1.3); Blood Urea Nitrogen 10 mg/dL (9-20); Calcium 9.1 mg/dL (8.4-10.2); Carbon Dioxide 27 mmol/L (22-30); Chloride 96 mmol/L (98-107); Estimated CRCL calculation 106 ml/min; Estimated Glomerular Filt Rate > 60; Glucose 88 mg/dL (65-110); Potassium 3.8 mmol/L (3.4-5.0); Sodium 135 mmol/L (137-145)
--- NOTE | 2024-06-11 09:40 | PM.IMPN ---
Progress Note: A&P Assessment and Plan (1) Diverticulitis of large intestine with perforation and abscess without bleeding: Code(s): K57.20 - Diverticulitis of large intestine with perforation and abscess without bleeding Status: Acute Assessment and Plan: - CT abd/pelvis: 1. Acute sigmoid diverticulitis. No perforation or abscess. 2. Wall thickening of the distal esophagus again seen, consistent with edema versus esophagitis. 3. Stable mild periportal and subcarinal lymphadenopathy, likely reactive. 4. Bilateral nonobstructing kidney stones. - CT abd/pelvis (previous, 05/12/24) 1. Wall thickening of the distal esophagus, consistent with edema versus esophagitis. Small sliding hiatal hernia. 2. Wall thickening of the proximal jejunum, consistent with edema versus enteritis. 3. Wall thickening of the sigmoid colon, likely chronic diverticulitis. 4. Moderate volume of ascites. 5. Mild periportal and subcarinal lymphadenopathy, likely reactive. 6. Small right pleural effusion. - failed outpatient abx: Augmentin and Ciprofloxacin - started on Flagyl and Rocephin - stool cultures and c. diff - IV fluids - trend renal function and wbc - Bentyl prn (exchanged KCL tablet to liquid to decrease irritant affects) and antiemetics prn --GI consulted, planning conservative management, outpatient colonoscopy in 6-8 weeks -- 06/11 with slow improvement (2) Elevated liver enzymes: Code(s): R74.8 - Abnormal levels of other serum enzymes Status: Acute Assessment and Plan: - previous hx of ETOH abuse, cessation in - fatty liver seen on CT - total bilirubin 1.5, AST 54, ALT 80, alk-phos 67 - previously 1.2, AST 57, ALT 86, alk-phos 54 - 06/11 AST 36, ALT 59 (3) Nephrolithiasis: Code(s): N20.0 - Calculus of kidney Status: Acute Assessment and Plan: - CT abd/pelvis: There is a 5.5 cm cyst in right kidney. There are 8 stones in right kidney measuring up to 5 mm. There are 3 stones in left kidney measuring up to 4 mm. - no acute intervention indicated (4) Benign essential HTN: Code(s): I10 - Essential (primary) hypertension Status: Acute Assessment and Plan: Home medications: Losartan-hydrochlorothiazide 50-12.5 mg, HCTZ 25 mg, Lasix 20 mg 09/2023 TTE LVEF 65% - chronic, currently 121/84 --Hold HCTZ and furosemide while receiving fluids (would also consider switching to either HCTZ or furosemide at discharge) - SHOULD AVOID HCTZ DUE TO GOUT (5) Gout: Code(s): M10.9 - Gout, unspecified Status: Acute Assessment and Plan: Right foot erythema, edema, suspect gout --X-ray right foot --Colchicine 1.2mg followed by 0.6mg and then daily. Patient is aware to monitor for nausea/vomiting, diarrhea, discussed toxicity --Has been off allopurinol due to cost --Avoid thiazides -- 06/11 add heating pad, increase colchicine to 0.6 mg bid. Subjective Date/time seen: 06/11/24 09:40 Interval history: Mild LLQ pain. Had formed stool this AM. Tolerating clear liquids. Right ankle a little better, still very tender. Denied chest pain or sob. No bleeding noted in stool or urine. Review of Systems Review of Systems: All systems reviewed & are unremarkable except as noted in HPI and below Exam Narrative: HEENT: EOMI, sclerae nonicteric, pharyngeal mucosa pink and intact NECK: No JVD CHEST: Clear to auscultation. Normal effort. HEART: NL S1/S2, regular, no murmur ABDOMEN: BS+, soft, TENDER LLQ WITH MILD FULLNESS EXTREMITIES: No cyanosis, edema, or clubbing NEUROLOGIC: CN intact and symmetric to inspection. MUSCULOSKELETAL: Tone and strength symmetric. RIGHT ANKLE WITH MILD EFFUSION, MILD ERYTHEMA & WARMTH, EXQUISITE TENDERNESS. PSYCH: Alert. Oriented to person, place, and time. Objective Data Vital Signs Vital Signs: Vital Signs - 24 hr 06/10/24 14:00 06/10/24 20:22 06/10/24 20:00 Temperature 97.7 F 99.2 F Pulse Rate 89
[2024-06-11] MEDS: SODIUM CHLORIDE 0.9% IV 1,000 ML 75 ML IV CONT (12:28)
[2024-06-11 13:20] VITALS: BP 123/76; PULSE 88; RESP 16; TEMP 36.8; O2SAT 97
--- NOTE | 2024-06-11 14:13 | WPDGIPROGNO ---
Progress Note: A&P Assessment and Plan (1) Diverticulitis of sigmoid colon: Code(s): K57.32 - Diverticulitis of large intestine without perforation or abscess without bleeding Status: Acute Assessment and Plan: symptomatically much better, will advance diet iv abx colonoscopy in 6-8 weeks (2) Nonalcoholic fatty liver disease: Code(s): K76.0 - Fatty (change of) liver, not elsewhere classified Status: Acute (3) Elevated liver enzymes: Code(s): R74.8 - Abnormal levels of other serum enzymes Status: Acute Subjective Date/time seen: 06/11/24 14:13 Interval history: pain almost gone, had 2 BM today, he is hungry Review of Systems Review of Systems: All systems reviewed & are unremarkable except as noted in HPI and below Exam Const: General: comfortable and no acute distress HENMT: Face/Nose/Sinus: Normal nares present Eyes: General: appearance normal, both eyes and all related structures Neck: Neck: supple Resp: Auscultation: clear to auscultation bilaterally Cardio: Rate: regular rate Rhythm: regular rhythm GI: Inspection: non-distended GI Palp: Yes Soft to palpation and No Tenderness to palpation present (GI) Auscultation: normal bowel sounds Skin: General skin exam: normal color Neuro: Speech: normal speech Motor exam (neuro): 5/5 motor strength present throughout Extrem: General: normal to inspection Psych: Mental Status: mental status grossly normal Objective Data Vital Signs Vital Signs: Vital Signs - 24 hr 06/10/24 20:22 06/10/24 20:00 06/10/24 21:26 Temperature 99.2 F Pulse Rate 82 82 Respiratory Rate 18 18 Blood Pressure 117/68 Pulse Oximetry 97 97 97 Oxygen Delivery Room Air Room Air 06/11/24 06:00 06/11/24 08:30 06/11/24 13:20 Temperature 97.5 F L 98.3 F Pulse Rate 80 88 Respiratory Rate 20 16 Blood Pressure 123/82 123/76 Pulse Oximetry 98 97 Oxygen Delivery Room Air Intake/Output Intake/Output: Intake & Output 06/08/24 06/09/24 06/10/24 06/11/24 23:59 23:59 23:59 23:59 Intake Total 1420 5057.5 2602 Balance 1420 5057.5 2602 Meds/Results Medications: Active Medications Generic Name Dose Route Start Last Admin Trade Name Freq PRN Reason Stop Dose Admin Acetaminophen 650 mg 06/09/24 14:19 Acetaminophen 325 Mg Tablet PO Q4H PRN Mild Pain (1-3) or Fever Hydrocodone Bitart/Acetaminophen 1 tab 06/09/24 14:19 06/11/24 08:41 Hydrocodone/Acetaminophen (*Crx) 5-325 Mg Tablet PO 1 tab Q6H PRN Administration Pain Rated 4-6 Aspirin 81 mg 06/10/24 09:00 06/11/24 08:41 Aspirin 81 Mg Enteric Tablet PO 81 mg DAILY SALEEM Administration Colchicine 0.6 mg 06/11/24 17:00 Colchicine 0.6 Mg Tablet PO BID SALEEM Dicyclomine HCl 20 mg 06/09/24 15:54 Dicyclomine Hcl 10 Mg Capsule PO QID PRN Abdominal Cramping Furosemide 20 mg 06/10/24 09:00 06/10/24 09:18 Furosemide 20 Mg Tablet PO 20 mg QAM SALEEM Administration Gabapentin 300 mg 06/09/24 17:25 06/11/24 12:28 Gabapentin 300 Mg Capsule PO 300 mg TID SALEEM Administration Ceftriaxone Sodium 1 gm in 50 mls @ 100 mls/hr 06/10/24 13:00 06/11/24 12:27 Rocephin 1 Gm/Ns 50 Ml IVPB 100 mls/hr Q24H SALEEM Administration Metronidazole 500 mg in 100 mls @ 100 mls/hr 06/09/24 22:00 06/11/24 13:24 Flagyl 500 Mg/Iso Soln 100 Ml IVPB 100 mls/hr Q8HR SALEEM Administration Sodium Chloride 1,000 mls @ 75 mls/hr 06/09/24 16:00 06/11/24 12:28 Normal Saline Iv IV CONT 75 mls/hr .[id number] SALEEM Administration Losartan Potassium 50 mg 06/10/24 09:00 06/11/24 08:41 Losartan Potassium 50 Mg Tablet PO 50 mg QAM SALEEM Administration Morphine Sulfate 4 mg 06/09/24 14:19 06/10/24 17:16 Morphine Sulfate (*Crx) 4 Mg/Ml Inj IV PUSH 4 mg Q4H PRN Administration Pain Rated 7-10 Nitroglycerin 0.4 mg 06/09/24 17:19 Nitroglycerin Sl 0.4 Mg Tablet SUBLINGU
[2024-06-11 21:05] VITALS: BP 118/74; PULSE 95; RESP 14; TEMP 36.8; O2SAT 96
[2024-06-11] MEDS: MORPHINE SULFATE (*CRX) 4 MG/ML INJ IV PUSH (21:08)
[2024-06-11 21:48] VITALS: O2SAT 96
[2024-06-12] MEDS: metroNIDAZOLE 500 MG/ISO 100ML 500 MG/100 ML BAG 100 MG IVPB (05:27)
[2024-06-12 05:42] VITALS: BP 121/73; PULSE 86; RESP 13; TEMP 36.6; O2SAT 95
[2024-06-12 06:27] LABS: Hematocrit 42.2 % (42.0-52.0); Mean Corpuscular HGB Conc 33.2 g/dl (32-36); Mean Corpuscular Volume 93.6 fl (80-100); Mean Platelet Volume 11.8 fl (7.4-10.4); Platelet Count Result 165 k/mm3 (150-375); Red Blood Count 4.51 M/mm3 (4.6-6.20); Red Cell Distribution Width 12.3 % (11.5-14.5); White Blood Count 4.5 K/mm3 (4.5-10.0)
[2024-06-12 06:34] LABS: Alanine Aminotransferase 45 U/L (6-50); Albumin Level 4.1 g/dL (3.5-5.1); Alkaline Phosphatase 61 U/L (38-126); Anion Gap 11 mmol/L (4-12); Aspartate Amino Transferase 29 U/L (17-59); Bilirubin,Total 1.1 mg/dL (0.2-1.3); Blood Urea Nitrogen 10 mg/dL (9-20); Carbon Dioxide 24 mmol/L (22-30); Chloride 100 mmol/L (98-107); Estimated CRCL calculation 117 ml/min; Estimated Glomerular Filt Rate > 60; Glucose 92 mg/dL (65-110); Potassium 4.1 mmol/L (3.4-5.0); Sodium 135 mmol/L (137-145)
[2024-06-12] MEDS: SODIUM CHLORIDE 0.9% IV 1,000 ML 75 ML IV CONT (06:44)
[2024-06-12] MEDS: VITAMIN B COMPLEX CAPSULE 1 CAP PO (10:26)
[2024-06-12] MEDS: COLCHICINE 0.6 MG TABLET PO (10:26)
[2024-06-12] MEDS: ASPIRIN 81 MG ENTERIC TABLET PO (10:26)
[2024-06-12] MEDS: POTASSIUM CHLORIDE 10 MEQ ER TABLET PO (10:26)
[2024-06-12] MEDS: LOSARTAN POTASSIUM 50 MG TABLET PO (10:27)
[2024-06-12] MEDS: PANTOPRAZOLE 40 MG TABLET PO (10:27)
[2024-06-12] MEDS: GABAPENTIN 300 MG CAPSULE PO (10:27)
[2024-06-12] MEDS: ACETAMINOPHEN 325 MG TABLET 650 MG PO (10:38)
--- NOTE | 2024-06-12 11:41 | PM.DS ---
DS: Admitting Diagnosis Discharge Date 06/12/2024 Admitting Diagnosis acute diverticulitis DS: Discharge Diagnosis Discharge Diagnosis (1) Diverticulitis of large intestine with perforation and abscess without bleeding: Code(s): K57.20 - Diverticulitis of large intestine with perforation and abscess without bleeding Status: Acute Assessment and Plan: - CT abd/pelvis: 1. Acute sigmoid diverticulitis. No perforation or abscess. 2. Wall thickening of the distal esophagus again seen, consistent with edema versus esophagitis. 3. Stable mild periportal and subcarinal lymphadenopathy, likely reactive. 4. Bilateral nonobstructing kidney stones. - CT abd/pelvis (previous, 05/12/24) 1. Wall thickening of the distal esophagus, consistent with edema versus esophagitis. Small sliding hiatal hernia. 2. Wall thickening of the proximal jejunum, consistent with edema versus enteritis. 3. Wall thickening of the sigmoid colon, likely chronic diverticulitis. 4. Moderate volume of ascites. 5. Mild periportal and subcarinal lymphadenopathy, likely reactive. 6. Small right pleural effusion. - failed outpatient abx: Augmentin and Ciprofloxacin - started on Flagyl and Rocephin - stool cultures and c. diff - IV fluids - trend renal function and wbc - Bentyl prn (exchanged KCL tablet to liquid to decrease irritant affects) and antiemetics prn --GI consulted, planning conservative management, outpatient colonoscopy in 6-8 weeks -- 06/11 with slow improvement -- 06/12 tolerating diet, discharge on additional 5 days of po antibiotics (2) Elevated liver enzymes: Code(s): R74.8 - Abnormal levels of other serum enzymes Status: Acute Assessment and Plan: - previous hx of ETOH abuse, cessation in - fatty liver seen on CT - total bilirubin 1.5, AST 54, ALT 80, alk-phos 67 - previously 1.2, AST 57, ALT 86, alk-phos 54 - 06/11 AST 36, ALT 59 - 06/12 AST 29, ALT 45 (WNL) (3) Gout: Code(s): M10.9 - Gout, unspecified Status: Acute Assessment and Plan: Right foot erythema, edema, suspect gout --X-ray right foot --Colchicine 1.2mg followed by 0.6mg and then daily. Patient is aware to monitor for nausea/vomiting, diarrhea, discussed toxicity --Has been off allopurinol due to cost --Avoid thiazides -- 06/11 add heating pad, increase colchicine to 0.6 mg bid. - 06/12 add methylprednisolone 60 mg IV x 1, discharge on prednisone 20 mg daily x 5, colchicine 0.6 mg daily; to f/u with PCP for preventive therapy (4) Nephrolithiasis: Code(s): N20.0 - Calculus of kidney Status: Acute Assessment and Plan: - CT abd/pelvis: There is a 5.5 cm cyst in right kidney. There are 8 stones in right kidney measuring up to 5 mm. There are 3 stones in left kidney measuring up to 4 mm. - no acute intervention indicated (5) Benign essential HTN: Code(s): I10 - Essential (primary) hypertension Status: Acute Assessment and Plan: Home medications: Losartan-hydrochlorothiazide 50-12.5 mg, HCTZ 25 mg, Lasix 20 mg 09/2023 TTE LVEF 65% - chronic, currently 121/84 --Hold HCTZ and furosemide while receiving fluids (would also consider switching to either HCTZ or furosemide at discharge) - SHOULD AVOID HCTZ DUE TO GOUT DS: Summary Hospital Course Hospital Course: 49-year-old gentleman presented June 09 with abdominal pain in the left lower quadrant. Imaging was consistent with acute diverticulitis as outlined below. White count was never elevated fact was 3.8 at admission. H vital signs remained stable. During hospital a recurrence of acute gout in the right go with erythema swelling and exquisite tenderness. This improved a bit with colchicine and analgesics. As his diverticulitis was almost completely resolved and on comfort meds were added on day of discharge. He was ambulatory with some difficulty due to the gout. He was tolerating his diet. Bowels are moving. Is form AD
[2024-06-12] MEDS: methylPREDNISolone SOD SUCC 125 MG VIAL 60 MG IV PUSH (12:50)
--- NOTE | 2024-06-12 13:55 | WPDGIPROGNO ---
Progress Note: A&P Assessment and Plan (1) Diverticulitis of sigmoid colon: Code(s): K57.32 - Diverticulitis of large intestine without perforation or abscess without bleeding Status: Acute Assessment and Plan: 5 more day of oral antibiotics, doing much better will arrange colonoscopy in 6-8 weeks (2) Nonalcoholic fatty liver disease: Code(s): K76.0 - Fatty (change of) liver, not elsewhere classified Status: Acute Assessment and Plan: monitor as outpatient (3) Elevated liver enzymes: Code(s): R74.8 - Abnormal levels of other serum enzymes Status: Acute (4) Gastritis: Code(s): K29.70 - Gastritis, unspecified, without bleeding Status: Acute Subjective Date/time seen: 06/12/24 11:05 Interval history: comfortable and tolerating diet he is going home today Review of Systems Review of Systems: All systems reviewed & are unremarkable except as noted in HPI and below Exam Const: General: comfortable and no acute distress HENMT: Face/Nose/Sinus: Normal nares present Eyes: General: appearance normal, both eyes and all related structures Neck: Neck: supple Resp: Auscultation: clear to auscultation bilaterally Cardio: Rate: regular rate Rhythm: regular rhythm GI: Inspection: non-distended GI Palp: Yes Soft to palpation and No Tenderness to palpation present (GI) Auscultation: normal bowel sounds Skin: General skin exam: normal color Neuro: Speech: normal speech Motor exam (neuro): 5/5 motor strength present throughout Extrem: Other: rt ankle erythema better- h/o gout Psych: Mental Status: mental status grossly normal Objective Data Vital Signs Vital Signs: Vital Signs - 24 hr 06/11/24 20:00 06/11/24 21:05 06/12/24 05:42 Temperature 98.3 F 97.9 F Pulse Rate 95 86 Respiratory Rate 14 13 Blood Pressure 118/74 121/73 Pulse Oximetry 96 95 Oxygen Delivery Room Air 06/11/24 21:48 06/12/24 08:00 Temperature Pulse Rate Respiratory Rate Blood Pressure Pulse Oximetry 96 Oxygen Delivery Room Air Room Air Intake/Output Intake/Output: Intake & Output 06/09/24 06/10/24 06/11/24 06/12/24 23:59 23:59 23:59 23:59 Intake Total 1420 5057.5 3092 2380 Output Total 800 Balance 1420 5057.5 3092 1580 Meds/Results Radiology Results: ITS Impressions Abdomen/Pelvis CT 06/09/24 11:44 IMPRESSION: 1. Acute sigmoid diverticulitis. No perforation or abscess. 2. Wall thickening of the distal esophagus again seen, consistent with edema versus esophagitis. 3. Stable mild periportal and subcarinal lymphadenopathy, likely reactive. 4. Bilateral nonobstructing kidney stones. Ankle X-Ray 06/10/24 17:03 IMPRESSION: No acute osseous abnormality of the right ankle. Missing inferior portion of the medial malleolus which may be due to old trauma or erosive process like gout. Labs Labs: Laboratory Results - last 24 hr 06/12/24 05:58 WBC 4.5 RBC 4.51 L Hgb 14.0 Hct 42.2 MCV 93.6 MCH 31.0 MCHC 33.2 RDW 12.3 Plt Count 165 MPV 11.8 H Sodium 135 L Potassium 4.1 Chloride 100 Carbon Dioxide 24 Anion Gap 11 BUN 10 Creatinine 0.90 Estim Creat Clear Calc 117 Estimated GFR > 60 Glucose 92 Calcium 9.0 Total Bilirubin 1.1 AST 29 ALT 45 Alkaline Phosphatase 61 Total Protein 7.0 Albumin 4.1
--- NOTE | 2024-06-13 06:18 | P.CDI_ITS ---
Agree CDI Query Clarification Request BMI: 36.7 Nutritional Diagnostic Statement: Please refer to the comprehensive nutrition assessment for further information. If you agree with diagnosis of Moderate malnutrition related to altered GI function as evidenced by intakes <75% needs >1 month; weight loss 10%/6 months. Please specify severity if known: * Mild * Moderate * Severe * Other/Unknown
== END 2024-06-12 13:13 | disposition home or self-care (01) ==
LOC: ANHED 10:52 → ANH3MEDSUR 14:15
PROVIDERS: Internal Medicine; Student in an Organized Health Care Education/Training Program; Admitting Provider Family Medicine; Emergency Provider Student in an Organized Health Care Education/Training Program; PCP Family Medicine; Visit Provider Nurse Practitioner Acute Care
DX: K57.32 Diverticulitis of large intestine without perforation or abscess without bleeding (principal); R19.5 Other fecal abnormalities; K76.0 Fatty (change of) liver, not elsewhere classified; K29.70 Gastritis, unspecified, without bleeding; R74.8 Abnormal levels of other serum enzymes; N20.0 Calculus of kidney; I10 Essential (primary) hypertension; K21.9 Gastro-esophageal reflux disease without esophagitis; M10.9 Gout, unspecified; Z72.0 Tobacco use; Z79.82 Long term (current) use of aspirin
CPT/HCPCS: 36415; 73600; 74176; 80053; 81003; 83605; 83690; 85025; 85027; 87040; 87045; 87427; 87449; 96361; 96365; 96366; 96367; 96375; 96376; 99285; A9270; G0378; J0696; J1170; J1836; J2270; J2919; J7030; J7120

== ENCOUNTER 2024-07-13 16:17 | Outpatient (CLI) | payer OTHER, SELFPAY ==
[2024-07-13 16:33] LABS: Basophils Absolute Auto 0.1 K/mm3 (0.0-0.1); Eosinophils Absolute Auto 0.8 K/mm3 (0-0.3); Eosinophils Percent Auto 15.8 % (0-4.4); Hematocrit 42.4 % (42.0-52.0); Hemoglobin 14.5 g/dL (14.0-18.0); Immature Granulocyte Absolute 0.01 K/mm3 (0.00-0.031); Immature Granulocyte Percent A 0.2 % (0-0.5); Lymphocytes Percent Auto 29.2 % (18.3-44.2); Mean Corpuscular HGB Conc 34.2 g/dl (32-36); Mean Corpuscular Hemoglobin 31.5 pg (26-34); Mean Platelet Volume 11.1 fl (7.4-10.4); Monocytes Absolute Auto 0.3 K/mm3 (0.1-0.6); Monocytes Percent Auto 6.4 % (2.6-8.5); Neutrophils Absolute Auto 2.4 K/mm3 (1.3-6.7); Neutrophils Percent Auto 47.4 % (45.5-73.1); Platelet Count Result 178 k/mm3 (150-375); Red Blood Count 4.61 M/mm3 (4.6-6.20); Red Cell Distribution Width 12.6 % (11.5-14.5); White Blood Count 5.1 K/mm3 (4.5-10.0)
[2024-07-13 16:50] LABS: Alanine Aminotransferase 63 U/L (6-50); Albumin Level 4.4 g/dL (3.5-5.1); Alkaline Phosphatase 64 U/L (38-126); Anion Gap 9 mmol/L (4-12); Aspartate Amino Transferase 49 U/L (17-59); Bilirubin,Total 1.1 mg/dL (0.2-1.3); Blood Urea Nitrogen 14 mg/dL (9-20); Calcium 9.4 mg/dL (8.4-10.2); Carbon Dioxide 29 mmol/L (22-30); Chloride 103 mmol/L (98-107); Estimated Glomerular Filt Rate 59; Glucose 95 mg/dL (65-110); Potassium 3.8 mmol/L (3.4-5.0); Sodium 141 mmol/L (137-145); Uric Acid 7.9 mg/dL (3.5-8.5)
[2024-07-13 16:59] LABS: Add Urine Microscopic? YES; Appearance Urine Cloudy (Clear); Bacteria Urine None Seen /hpf; Bilirubin Urine Negative (Negative); Blood Urine 3+ (Negative); Glucose Urine UA Negative (Negative); Ketones Urine Trace mg/dL (Negative); Leukocyte Esterase Ur 1+ LEU/UL (Negative); Need Manual Microscopic Reviewed; Nitrate Urine Negative (Negative); Non Pathogenic Casts 0-2; Protein Urine 2+ mg/dL (Negative); RBC Urine >100 /hpf (0-2); Specific Grav Ur 1.018 (1.001-1.035); Squamous Epithelial Cell Urine None Seen /hpf (Few); WBC Urine 0-5 /hpf (0-3)
[2024-07-13 17:02] LABS: Color Urine Amber (Yellow)
== END 2024-07-13 16:18 | disposition home or self-care (01) ==
LOC: ANHLAB 16:18
PROVIDERS: PCP Family Medicine; Visit Provider Physician Assistant
DX: Z01.818 Encounter for other preprocedural examination (principal); M10.9 Gout, unspecified
CPT/HCPCS: 36415; 80053; 81001; 84550; 85025; 87086

== ENCOUNTER 2024-08-16 00:07 | Day surgery (SDC) | payer OTHER, SELFPAY ==
[2024-08-01 13:30] VITALS: BMI 36.3
[2024-08-16 12:20] VITALS: BP 143/85; PULSE 68; RESP 18; TEMP 36.3; O2SAT 100; BMI 36.1
[2024-08-16] MEDS: LACTATED RINGERS 1,000 ML 150 ML IV CONT (12:46)
--- NOTE | 2024-08-16 13:02 | P.PNAN_ITS ---
Anes - Eval Pre Procedure Procedure: Operation Date: 08/16/24 12:30 Proposed Procedures p Colonoscopy - Ezio Mcmullen MD Date/Time: 08/16/24 13:02 Surgeon: Benedict Preop Diagnosis: Colonoscopy Pre Op Diagnosis: diverticulitis of large intestine w/o perforation Patient Data Age: 49 Gender: M Height: 1.8 m Weight: 117.5 kg Last Vital Signs Temp 97.3 F L 08/16/24 12:20 Pulse 68 08/16/24 12:20 Resp 18 08/16/24 12:20 BP 143/85 H 08/16/24 12:20 Pulse Ox 100 08/16/24 12:20 O2 Del Method Room Air 08/16/24 12:20 Allergies Allergy/AdvReac Type Severity Reaction Status Date / Time shellfish derived Allergy Severe Swelling Verified 08/16/24 12:25 of Lip/Tongue/Throat Iodinated Contrast Media Allergy Mild Swelling Verified 08/16/24 12:25 latex Allergy Rash Verified 08/16/24 12:25 Home Medications Medication Instructions Recorded Confirmed Type alpha lipoic acid 200 mg PO DAILY 05/03/24 08/16/24 History aspirin 81 mg tablet,delayed 81 mg PO DAILY 05/03/24 08/16/24 History release esomeprazole magnesium 20 mg 20 mg PO DAILY PRN Heartburn 05/27/24 08/16/24 History capsule,delayed release (Nexium 24HR) acetaminophen 325 mg tablet 650 mg PO Q4H PRN Mild Pain (1-3) 06/12/24 08/16/24 Rx Or Fever #60 tabs losartan 50 mg tablet 50 mg PO DAILY #30 tabs 06/12/24 08/16/24 Rx gabapentin 300 mg capsule 300 mg PO TID #270 caps 06/16/24 08/16/24 Rx allopurinol 100 mg tablet 100 mg PO DAILY #90 tabs 07/13/24 08/16/24 Rx colchicine 0.6 mg tablet (Colcrys) 0.6 mg PO DAILY #60 tabs 07/13/24 08/16/24 Rx Patient hx anesthesia problems: none Family hx anesthesia problems: none Results Review: All pre-operative results and documents have been reviewed as part of the pre- operative evaluation. [facility] Past Medical History Medical History Abnormal small bowel x-ray Diverticulitis of large intestine with perforation and abscess without bleeding Diverticulosis Elevated liver enzymes Fatty liver Gastritis GERD (gastroesophageal reflux disease) Gout History of kidney stones Hypertension Previously on Lisinopril but no longer taking hyperventilates - lifestyle modification Nausea & vomiting Obesity Prediabetes Surgical History Surgical History H/O umbilical hernia repair 01/15/21 Laparoscopic umbilical hernia repair with Symbotex mesh, da Gurjit assisted History of colonoscopy History of esophagogastroduodenoscopy (EGD) Family History Family History Mother Hypertension Asthma Father Hypertension Family history of elevated blood lipids Carcinoma of colon Diabetes mellitus Grandparent Cerebrovascular accident Cancer Other Hypertension Social History Social History Social History: Smoking status: Never smoker Tobacco type: smokeless tobacco Smokeless tobacco user: chewing tobacco Second hand tobacco smoke exposure: No Additional smoking assessment comments: chews tobacco x20yrs Alcohol intake: never Substance use: never Substance use type: does not use Do You Feel Safe in your Home?: Yes Lack of Transportation: No Lack of Food: Never True Current Housing: I Have Housing Concerned About Future Housing: No Difficulty Paying Gas/Electric Bills: No Difficulty Paying for Meds: No Currently Unemployed: No Education: Don't Know Difficulty w/ Childcare or Family Care: No Living arrangements: with family Occupation/Education: occupation Additional occupation/education comments: 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
--- NOTE | 2024-08-16 13:06 | PM.IMHP ---
H&P: HPI History of Present Illness Date/Time: 08/16/24 13:06 Chief Complaint: History of polyps -family history of colorectal cancer Narrative: The patient has a history of colonic polyps, the last colonoscopy was in 2019. In addition, his father had colorectal cancer at age 59. Review of Systems Review of Systems: All systems reviewed & are unremarkable except as noted in HPI and below PMFSH Past Medical History Medical History Abnormal small bowel x-ray Diverticulitis of large intestine with perforation and abscess without bleeding Diverticulosis Elevated liver enzymes Fatty liver Gastritis GERD (gastroesophageal reflux disease) Gout History of kidney stones Hypertension Previously on Lisinopril but no longer taking hyperventilates - lifestyle modification Nausea & vomiting Obesity Prediabetes Surgical History Surgical History H/O umbilical hernia repair 01/15/21 Laparoscopic umbilical hernia repair with Symbotex mesh, da Gurjit assisted History of colonoscopy History of esophagogastroduodenoscopy (EGD) Family History Family History Mother Hypertension Asthma Father Hypertension Family history of elevated blood lipids Carcinoma of colon Diabetes mellitus Grandparent Cerebrovascular accident Cancer Other Hypertension Social History Social History Social History: Smoking status: Never smoker Tobacco type: smokeless tobacco Smokeless tobacco user: chewing tobacco Second hand tobacco smoke exposure: No Additional smoking assessment comments: chews tobacco x20yrs Alcohol intake: never Substance use: never Substance use type: does not use Do You Feel Safe in your Home?: Yes Lack of Transportation: No Lack of Food: Never True Current Housing: I Have Housing Concerned About Future Housing: No Difficulty Paying Gas/Electric Bills: No Difficulty Paying for Meds: No Currently Unemployed: No Education: Don't Know Difficulty w/ Childcare or Family Care: No Living arrangements: with family Occupation/Education: occupation 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 [employer] Gender identity (if verbalized by the patient): Male Sexual Orientation (if Verbalized by the Patient): Straight or Heterosexual Spiritual care concerns: No Meds Home Medications and Allergies Home Medications Medication Instructions Recorded Confirmed Type alpha lipoic acid 200 mg PO DAILY 05/03/24 08/16/24 History aspirin 81 mg tablet,delayed 81 mg PO DAILY 05/03/24 08/16/24 History release esomeprazole magnesium 20 mg 20 mg PO DAILY PRN Heartburn 05/27/24 08/16/24 History capsule,delayed release (Nexium 24HR) acetaminophen 325 mg tablet 650 mg PO Q4H PRN Mild Pain (1-3) 06/12/24 08/16/24 Rx Or Fever #60 tabs losartan 50 mg tablet 50 mg PO DAILY #30 tabs 06/12/24 08/16/24 Rx gabapentin 300 mg capsule 300 mg PO TID #270 caps 06/16/24 08/16/24 Rx allopurinol 100 mg tablet 100 mg PO DAILY #90 tabs 07/13/24 08/16/24 Rx colchicine 0.6 mg tablet (Colcrys) 0.6 mg PO DAILY #60 tabs 07/13/24 08/16/24 Rx Allergies Allergy/AdvReac Type Severity Reaction Status Date / Time shellfish derived Allergy Severe Swelling Verified 08/16/24 12:25 of Lip/Tongue/Throat Iodinated Contrast Media Allergy Mild Swelling Verified 08/16/24 12:25 latex Allergy Rash Verified 08/16/24 12:25 Vital Signs Vital Signs - 24 hr 08/16/24 12:20 Temperature 97.3 F L Pulse Rate 68 Respiratory Rate 18 Blood Pressure 143/85 H Pulse Oximetry 100 Oxygen Delivery Room Air Exam Const: General: cooperative and healthy appearing Resp: Effort & Inspection: normal respiratory effort and able to speak in complete sentences Auscultation: clear to auscultation bilaterally Cardio: Rate: regular rate Rhythm: regular rhythm GI: Inspection: normal to inspection GI Palp: No No hepatosplenomegaly present Auscultation: normal bowel sounds Rectal Exam: deferred Skin: General skin exam: normal color Psych: Appearance: grossly normal Mental Status: mental status grossly normal Assessment and Plan Assessment and plan (1) Personal history of colon polyps, unspecified: Code(s): Z86.010 - Personal history of colon polyps Status: Acute Assessment and Plan: The patient is deemed a good candidate for the procedure. Consent signed. Will proceed.
[2024-08-16] MEDS: SIMETHICONE ORAL SUSPENSION 20 MG/0.3 ML 30 ML BOTTLE 0.6 ML IRRIGATION (13:18)
[2024-08-16 13:28] VITALS: BP 112/75; PULSE 76; RESP 20; O2SAT 98
[2024-08-16 13:38] VITALS: BP 116/73; PULSE 67; RESP 17; O2SAT 97
[2024-08-16 13:48] VITALS: BP 118/83; PULSE 64; RESP 12; O2SAT 99
== END 2024-08-16 14:27 | disposition home or self-care (01) ==
PROVIDERS: PCP Family Medicine; Referring Provider Internal Medicine Gastroenterology; Visit Provider Internal Medicine Gastroenterology
PROC: 0DJD8ZZ Inspection of Lower Intestinal Tract, Via Natural or Artificial Opening Endoscopic (ICD-10-PCS; CPT 45378; principal; 2024-08-16 12:30)
DX: Z12.11 Encounter for screening for malignant neoplasm of colon (principal); K57.30 Diverticulosis of large intestine without perforation or abscess without bleeding; I10 Essential (primary) hypertension; R73.03 Prediabetes; K21.9 Gastro-esophageal reflux disease without esophagitis; F17.220 Nicotine dependence, chewing tobacco, uncomplicated; E66.9 Obesity, unspecified; Z68.36 Body mass index [BMI] 36.0-36.9, adult; Z79.82 Long term (current) use of aspirin; Z98.890 Other specified postprocedural states; Z86.0100 Personal history of colon polyps, unspecified; Z87.442 Personal history of urinary calculi; Z87.19 Personal history of other diseases of the digestive system; Z80.0 Family history of malignant neoplasm of digestive organs; Z82.49 Family history of ischemic heart disease and other diseases of the circulatory system
CPT/HCPCS: 45378; J2003; J2704; J7120

== ENCOUNTER 2024-12-28 07:55 | Outpatient (CLI) | payer OTHER, SELFPAY ==
--- OUTSIDE RECORDS SUMMARY | 2024-12-28 08:01 | XMS_ITS | Clinical Summary ---
Author Organization [facility] Address [address] [place] [address] Care Team Providers Care Coremaker Floor Name Role Phone Shandra Haddad MD Primary Care Provider [phone]- [phone] Allergies Active Allergy Reactions Criticality Noted Date Comments Latex Rash Low 06/29/2024 Shellfish Allergy Hives 06/28/2024 Tape Contact Dermatitis 06/28/2024 Medications losartan (COZAAR) 25 MG tablet Take 1 tablet (25 mg total) by mouth nightly. Active gabapentin (NEURONTIN) 300 MG capsule Take by mouth 3 (three) times daily. 4 Active colchicine 0.6 MG tablet Take 1 tablet (0.6 mg total) by mouth daily. Active nitroglycerin (NITROSTAT) 0.[address] 1 tablet (0.4 mg total) under the tongue every 5 (five) minutes as needed for Chest Pain. Active tamsulosin (FLOMAX) 0.4 MG Cap Take 1 capsule (0.4 mg total) by mouth daily. 30 capsule 4 Active ASPIRIN LOW DOSE 81 MG tablet Take 1 tablet (81 mg total) by mouth daily. 4 Active allopurinol (ZYLOPRIM) 100 MG tablet Take 1 tablet (100 mg total) by mouth daily. 4 Active pantoprazole EC (PROTONIX) 40 MG tablet Take 1 tablet (40 mg total) by mouth daily. 4 Active triamcinolone (KENALOG) 0.1 % ointment Apply topically daily. 4 Active Active Problems Problem Noted Date Diagnosed Date Kidney stone 06/29/2024 Family History Medical History Relation Comments Cancer Father Diabetes Father Hypertension Father Cancer Mother Hypertension Mother Relation Status Comments Father Alive Mother Alive Social History Tobacco Use Types Packs/Day Years Used Date Smoking Tobacco: Never Smokeless Tobacco: Current Chew Tobacco Cessation:Ready to Q uit: Not Asked; Counseling Given: Not Answered Comments:Pt aware not to chew 24hrs prior to surgery Alcohol Use Standard Drinks/Week Comments Not Currently 0 (1 standard drink = 0.6 oz pur e alcohol) [facility] Utilities Answer Date Recorded In the past 12 months has th e [employer], [employer], oil, or water [employer] threatened to shut off services in your home? No 06/29/2024 Humiliation, Afraid, Rape, and Kick questionnair e Answer Date Recorded Within the last year, have y ou been afraid of your partner or ex-partner? No 06/29/2024 Within the last year, have y ou been humiliated or emotionally abused in other ways by your partner or ex-partner? No Within the last year, have y ou been kicked, hit, slapped, or otherwise physically hurt by your partner or ex-partner? No 06/29/2024 Within the last year, have y ou been raped or forced to have any kind of sexual activity by your partner or ex-partner? No 06/29/2024 Overall Financial Resource Strain (CARDIA) Answe r Date Recorded How hard is it for you to pa y for the very basics like food, housing, medical care, and heating? Not hard at all 06/29/2024 Hunger Vital Sign Answer Date Recorded Within the past 12 months, y ou worried that your food would run out before you got the money to buy more. Never true 06/29/20 24 Within the past 12 months, t he food you bought just didn't last and you didn't have money to get more. Never true 06/29/2024 PRAPARE - Transportation Answer Date Re corded In the past 12 months, has l ack of transportation kept you from medical appointments or from getting medications? No 05/2024 In the past 12 months, has l ack of transportation kept you from meetings, work, or from getting things needed for daily living? No 06/29/2024 Housing Stability Vital Sign Answer Napoleon e Recorded In the last 12 months, was t here a time when you were not able to pay the mortgage or rent on time? No 06/29/2024 In the past 12 months, how m any times have you moved where you were living? 0 06/29/2024 At any time in the past 12 m [facility] were you homeless or living in a mcc (including now)? No 06/29/2024 Sex and Gender Information Value Date Recorded Sex Assigned at Not on file Legal Sex Male 10:20 PM CDT Gender Identity Not on file Sexual Orientation Not on file Last Filed Vital Signs Vital Sign Reading Time Taken Comments Blood Pressure 110/62 07/20/2024 2:46 PM CDT Pulse 65 07/20/2024 2:46 PM CDT Temperature 36.6 C (97.9 F) 07/20/2024 2:46 PM CDT Respiratory Rate 18 07/20/2024 2:46 PM CDT Oxygen Saturation 97% 07/20/2024 2:46 PM CDT Inhaled Oxygen Concentration - - Weight 117.9 kg (260 lb) 07/20/2024 10:11 AM CDT Height 180.3 cm (5' 11 ) 07/20/2024 10:11 AM CDT Body Mass Index 36.26 07/20/2024 10:11 AM CDT Plan of Treatment Health Maintenance Due Date Last Done Comments Colorectal Cancer Screening Colonoscopy (10 Years) 1977 Annual Physical 1980 Hepatitis C 1995 DTaP, Tdap and Td Vaccines ( 1 - Tdap) 1996 Hepatitis B Vaccines (1 of 3 - 19+ 3-dose series) 1996 COVID-19 Vaccine (2023-2 5 season) 2024 10/14/2021, 03/20/2021, 02/27/2021 Meningococcal B Vaccine Aged Out No l onger eligible based on patient's age to complete this topic Meningococcal Vaccine Aged Out No laura addi eligible based on patient's age to complete this topic Pneumococcal Vaccine: Pediatrics (0 to 5 Years) and At-Risk Patients (6 to 64 Years) Aged Out No longer eligible b ased on patient's age to complete this topic RSV Immunizations Under 20 Months Aged Out No longer eligible b ased on patient's age to complete this topic Medical Devices Implanted Type Area Surveyor Rod Helper Device Identifier Shelf Expiration Date Model / Serial / Lot Stent Ureteral [place] Sci Contour 6fr X 26cm - [id number] Implanted:Qty: 1 on 06/29/2024 by Cam Hills MD at [facility] Stent Right: Ureter [employer] [id number] 03/17/2027 [id number] 30 / / [id number] Stent Ureteral [place] Sci Contour 6fr X 26cm - [id number] Implanted:Qty: 1 on 07/20/2024 by Cam Hills MD at [facility] Stent Right: Ureter [employer] [id number] 02/21/2027 [id number] 30 / / [id number] Insurance Germin8 Germin8 OPEN ACCESS [facility] Advance Directives * Full Code (Latest Code Status on File) Date Activated Date Inactivated Comments 06/29/2024 4:52 AM 06/30/2024 3:51 PM Care Teams Coremaker Floor Relationship Specialty Start Date End Date Shandra Haddad MD [address] [facility] [address] [place] [address] PCP - General FAMILY PRACTICE 06/28/24
[2024-12-28 08:22] LABS: Basophils Percent Auto 0.6 % (0.2-1.2); Eosinophils Absolute Auto 1.8 K/mm3 (0-0.3); Eosinophils Percent Auto 24.7 % (0-4.4); Hematocrit 47.6 % (42.0-52.0); Hemoglobin 16.4 g/dL (14.0-18.0); Immature Granulocyte Absolute 0.02 K/mm3 (0.00-0.031); Immature Granulocyte Percent A 0.3 % (0-0.5); Lymphocytes Absolute Auto 1.58 K/mm3 (0.9-3.2); Lymphocytes Percent Auto 22.3 % (18.3-44.2); Mean Corpuscular HGB Conc 34.5 g/dl (32-36); Mean Corpuscular Hemoglobin 31.6 pg (26-34); Mean Corpuscular Volume 91.7 fl (80-100); Mean Platelet Volume 10.4 fl (7.4-10.4); Monocytes Absolute Auto 0.4 K/mm3 (0.1-0.6); Monocytes Percent Auto 5.2 % (2.6-8.5); Neutrophils Absolute Auto 3.3 K/mm3 (1.3-6.7); Neutrophils Percent Auto 46.9 % (45.5-73.1); Platelet Count Result 187 k/mm3 (150-375); Red Blood Count 5.19 M/mm3 (4.6-6.20); Red Cell Distribution Width 12.4 % (11.5-14.5); White Blood Count 7.1 K/mm3 (4.5-10.0)
[2024-12-28 08:40] LABS: Alanine Aminotransferase 41 U/L (6-50); Albumin Level 4.6 g/dL (3.5-5.1); Alkaline Phosphatase 67 U/L (38-126); Anion Gap 10 mmol/L (4-12); Aspartate Amino Transferase 32 U/L (17-59); Bilirubin,Total 1.1 mg/dL (0.2-1.3); Blood Urea Nitrogen 15 mg/dL (9-20); Calcium 9.3 mg/dL (8.4-10.2); Carbon Dioxide 28 mmol/L (22-30); Chloride 101 mmol/L (98-107); Cholesterol 188 mg/dL (0-200); Estimated Glomerular Filt Rate 59; Glucose 105 mg/dL (65-110); HDL Direct 35 mg/dL; Potassium 4.3 mmol/L (3.4-5.0); Sodium 139 mmol/L (137-145); Triglycerides 195 mg/dL (<150); Uric Acid 8.9 mg/dL (3.5-8.5)
[2024-12-28 08:57] LABS: LDL Cholesterol Direct 95 mg/dL
[2024-12-28 09:00] LABS: Hemoglobin A1C 5.3 % (<5.7)
[2024-12-29 13:13] LABS: ANA Cascade Screen NEGATIVE (NEGATIVE)
== END 2024-12-28 07:56 | disposition home or self-care (01) ==
PROVIDERS: PCP Family Medicine; Visit Provider Physician Assistant
DX: R73.03 Prediabetes (principal); R74.8 Abnormal levels of other serum enzymes; N20.0 Calculus of kidney; M10.9 Gout, unspecified
CPT/HCPCS: 36415; 80053; 80061; 83036; 83516; 84550; 85025; 86038; 86225; 86235

== ENCOUNTER 2025-01-27 20:36 | Emergency (ER) | payer OTHER, SELFPAY ==
[2025-01-27] VITALS (8 sets, daily range): BP systolic 124–157; BP diastolic 74–90; PULSE 79–93; RESP 18–30; TEMP 36.3; O2SAT 94–100
--- NOTE | ~2025-01-27 | XR_ITS ---
CHEST RADIOGRAPH CLINICAL HISTORY: SHORTNESS OF BREATH. ALLERGIC REACTION TO SHELLFISH. . COMPARISON: None available TECHNIQUE: Single portable view of the chest. FINDINGS The cardiomediastinal silhouette is unremarkable. The lungs are clear. Elevation of the right hemidiaphragm is identified. IMPRESSION: No focal infiltrate or effusion. Reviewed, dictated and finalized at location A.
[2025-01-27] MEDS: EPINEPHrine HCL INJ 1 MG/ML AMPUL 0.5 MG IM (20:45)
--- OUTSIDE RECORDS SUMMARY | 2025-01-27 20:45 | XMS_ITS ---
Author Organization Unknown Medications Medication Instructions Effective Dates (start - stop) Status tamsulosin hydrochloride 0.4 MG Oral Capsule - Completed gabapentin 100 MG Oral Capsule 2023-12-21 T00:00:00Z - Completed hydrochlorothiazide 12.5 MG / losartan potassium 50 MG Oral Tablet - Completed hydrochlorothiazide 25 MG Or al Tablet - Completed hydrochlorothiazide 25 MG Or al Tablet - Completed aspirin 81 MG Delayed Releas e Oral Tablet - Completed gabapentin 100 MG Oral Capsule 2023-11-20 T00:00:00Z - Completed - - Compl eted gabapentin 300 MG Oral Capsule 2024-03-30 T00:00:00Z - Completed hydrochlorothiazide 12.5 MG / losartan potassium 50 MG Oral Tablet - Completed hydrochlorothiazide 25 MG Or al Tablet - Completed triamcinolone acetonide 0.00 1 MG/MG Topical Ointment - Completed nitroglycerin 0.4 MG Subling ual Tablet - Completed acetaminophen 325 MG / hydro codone bitartrate 5 MG Oral Tablet - Completed Patient Care team information Name Category Status Period Participants - - Proposed period not known -
--- OUTSIDE RECORDS SUMMARY | 2025-01-27 20:45 | XMS_ITS | Clinical Summary ---
Author Organization [facility] Address [address] [place] [address] Care Team Providers Care Assisted Living Home Director Name Role Phone Shandra Haddad MD Primary Care Provider [phone]- [phone] Allergies Active Allergy Reactions Criticality Noted Date [...] drink = 0.6 oz pur e alcohol) [facility] Utilities Answer Date Recorded In the past 12 months has th e [employer], [employer], oil, or water [employer] threatened to shut off services in your [...] any time in the past 12 m [facility], were you homeless or living in a long term (including now)? No 06/29/2024 Sex and Gender [...] 5 Years) and At-Risk Patients (6 to 49 Years) Aged Out No longer eligible b ased on patient's age to complete this topic RSV Immunizations Under 20 Months Aged Out No longer eligible b ased on patient's age to complete this topic Medical Devices Implanted Type Area Associate Creative Director Device Identifier Shelf Expiration Date Model / Serial / Lot Stent Ureteral [place] Sci Contour 6fr X 26cm - [id number] Implanted:Qty: 1 on 06/29/2024 by Cam Hills MD at [facility] Stent Right: Ureter [employer] [id number] 03/17/2027 [id number] 30 / / [id number] Stent Ureteral [place] Sci Contour 6fr X 26cm - [id number] Implanted:Qty: 1 on 07/20/2024 by Cam Hills MD at [facility] Stent Right: Ureter [employer] [id number] 02/21/2027 [id number] 30 / / [id number] Insurance ixigo ixigo OPEN ACCESS [facility] Advance Directives * Full Code (Latest Code Status on File) Date Activated Date Inactivated Comments 06/29/2024 4:52 AM 06/30/2024 3:51 PM Care Teams Assisted Living Home Director Relationship Specialty Start Date End Date Shandra Haddad MD [address] [facility] [address] [place] [address] PCP - General FAMILY PRACTICE 06/28/24
[2025-01-27] MEDS: methylPREDNISolone SOD SUCC 125 MG VIAL IV PUSH (20:46)
[2025-01-27] MEDS: diphenhydrAMINE HCl INJ 50 MG/ML VIAL IV PUSH (20:47)
--- NOTE | 2025-01-27 20:51 | ED.ALLEREA ---
HPI - Allergic Reaction General Chief complaint: Allergic Reaction Stated complaint: allergic reation Time Seen by Provider: 01/27/25 20:51 Source: patient and family Mode of arrival: ambulatory Limitations: no limitations History of Present Illness HPI narrative: patient is a 49-year-old male with exposure to shellfish this evening and he is allergic to shellfish. He started to get tight chested and tight throat and tongue swelling. He was given epinephrine on entry to the emergency room when he got to his room. MD complaint: allergic reaction and facial swelling Onset (ago): hour(s) ( One) Exposure: food and other ( shellfish) Known history of allergy to: shellfish Symptoms: facial swelling, lip swelling, difficulty swallowing, difficulty breathing and tongue swelling Severity: severe Treatment prior to arrival: other ( allergy medication OTC) Previous Allergic Reaction History: prior ED visit(s) and anaphylaxis Related Data Home Medications ?Medication ?Instructions ?Recorded ?Confirmed ?Last Taken ?Type alpha lipoic acid 200 mg PO DAILY 05/03/24 12/27/24 08/14/24 History aspirin 81 mg tablet,delayed 81 mg PO DAILY 05/03/24 12/27/24 08/14/24 History release Allergies Allergy/AdvReac Type Severity Reaction Status Date / Time shellfish derived Allergy Severe Swelling Verified 12/27/24 15:56 of Lip/Tongue/Throat Iodinated Contrast Media Allergy Mild Swelling Verified 12/27/24 15:56 latex Allergy Rash Verified 12/27/24 15:56 Review of Systems Review of Systems: All systems reviewed & are unremarkable except as noted in HPI and below Constitutional: Constitutional: Reports no additional constitutional complaints Eyes: Eyes: Reports no additional eye complaints ENT: Reports system reviewed and no additional complaints, except as documented Cardiovascular: Cardiovascular: Reports no additional cardiovascular complaints Respiratory: Respiratory: Reports no additional respiratory complaints Gastrointestinal: Gastrointestinal: Reports no additional gastrointestinal complaints Genitourinary: Genitourinary: Reports no additional male genitourinary complaints Musculoskeletal: Musculoskeletal: Reports no additional musculoskeletal complaints Integumentary/Breasts: Skin/Breast: Reports system reviewed and no additional complaints, except as docu Neurologic: Reports system reviewed and no additional complaints, except as documented Psychiatric: Psychiatric: Reports no additional psychiatric complaints Endocrine: Endocrine: Reports no additional endocrine complaints Hematologic/Lymphatic: Hematologic/Lymphatic: Reports no additional hematologic/lymphatic complaints Allergic/Immunologic: Allergic/Immunologic: Reports no additional allergic/immunologic complaints [facility] Past Medical History Medical History SOBOE (shortness of breath on exertion) Obesity Gastritis Fatty liver Abnormal small bowel x-ray Nausea & vomiting Elevated liver enzymes Prediabetes History of kidney stones Gout Diverticulosis Diverticulitis of large intestine with perforation and abscess without bleeding GERD (gastroesophageal reflux disease) Hypertension Previously on Lisinopril but no longer taking hyperventilates - lifestyle modification Surgical History Surgical History H/O umbilical hernia repair 01/15/21 Laparoscopic umbilical hernia repair with Symbotex mesh, da Gurjit assisted History of colonoscopy History of esophagogastroduodenoscopy (EGD) Family History Family History Mother Hypertension Asthma Father Hypertension Family history of elevated blood lipids Carcinoma of colon Diabetes mellitus Grandparent Cerebrovascular accident Cancer Other Hypertension Social History Social History Social History: Smoking status: Never smoker Tobacco type: smokeless tobacco Smokeless tobacco user: chewing tobacco Second hand tobacco smoke exposure: No Additional smoking assessment comments: chews tobacco x20yrs Alcohol intake: never Substance use: never Substance use type: does not use Do You Feel Safe in your Home?: Yes Lack of Transportation: No Lack of Food: Never True Current Housing: I Have Housing Concerned About Future Housing: No Difficulty Paying Gas/Electric Bills: No Difficulty Paying for Meds: No Currently Unemployed: No Education: Don't Know Difficulty w/ Childcare or Family Care: No Living arrangements: with family Occupation/Education: occupation 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[employer] Gender identity (if verbalized by the patient): Male Sexual Orientation (if Verbalized by the Patient): Straight or Heterosexual Spiritual care concerns: No Exam Const: General: ill appearing Nutritional Appearance: well nourished Orientation/consciousness: patient oriented x3 Limitations: no limitations HENMT: Head: normal to inspection Ears: external ears normal Face/Nose/Sinus: Normal external nose present Other: tongue is mildly enlarged as well as oropharynx Eyes: Conjunctivae: conjunctivae normal Pupils: Equal, round and reactive pupils present EOM: EOMs intact bilaterally Neck: Neck: normal visual inspection Chest: Chest palpation & inspection: normal inspection of the chest Resp: Effort & Inspection: abnormal respiratory effort, labored, no retractions, tachypneic and no use of accessory muscles Auscultation: clear to auscultation bilaterally, no crackles, no rales, no rhonchi, no wheezes, breath sounds present and diminished lung sounds Cardio: Rate: regular rate Rhythm: regular rhythm Heart sounds: no murmurs GI: Inspection: non-distended GI Palp: Yes Soft to palpation and No Tenderness to palpation present (GI) Auscultation: normal bowel sounds : General: Yes bladder normal to palpation Back/Spine/Pelvis: Back: no CVA tenderness Skin: General skin exam: pallor Rashes: no rashes Wounds: no wounds Neuro: General: patient oriented x3 Cranial nerves: Yes Nystagmus not present Speech: normal speech Gait exam (Neuro): Normal gait present Extrem: General: normal to inspection Psych: Mental Status: mental status grossly normal Affect: normal affect Attitude: cooperative Course Vital Signs Vital signs: Vital Signs Temperature 36.3 C L 01/27/25 20:44 Pulse Rate 83 01/27/25 20:44 Respiratory Rate 30 H 01/27/25 20:44 Blood Pressure 157/90 H 01/27/25 20:44 Pulse Oximetry 100 01/27/25 20:44 Oxygen Delivery Room Air 01/27/25 20:44 Temperature 36.3 C L 01/27/25 20:44 Pulse Rate 83 01/27/25 20:44 Respiratory Rate 30 H 01/27/25 20:44 Blood Pressure 157/90 H 01/27/25 20:44 Pulse Oximetry 100 01/27/25 20:44 Oxygen Delivery Room Air 01/27/25 20:44 MDM - Allergic Reaction MDM Narrative Medical decision making narrative: patient is a 49-year-old male with anaphylaxis and allergic reaction to shellfish. We will start with epinephrine and then Solu-Medrol and Benadryl. We will get a basic workup. Lab Data Attestation: I reviewed the patient's lab results. 01/27/25 21:37 01/27/25 21:37 Labs: Lab Results 01/27/25 Range/Units 21:37 WBC 8.3 (4.8-10.8) K/mm3 RBC 4.68 L (4.70-6.10) M/mm3 Hgb 14.6 (14.0-18.0) g/dL Hct 43.0 (40.0-54.0) % MCV 91.9 (78.0-102.0) fL MCH 31.2 H (27.0-31.0) pg MCHC 34.0 (32-36) g/dL RDW 12.5 (11.6-14.4) % Plt Count 198 (150-420) K/mm3 MPV 10.1 (8.7-11.0) fl Immature Gran % (Auto) Not Reportable Neut % (Auto) Not Reportable Lymph % (Auto) Not Reportable [place] % (Auto) Not Reportable Eos % (Auto) Not Reportable Baso % (Auto) Not Reportable Lymph # (Auto) Not Reportable [place] # (Auto) Not Reportable Eos # (Auto) Not Reportable Baso # (Auto) Not Reportable Abs Immat Gran (auto) Not Reportable Absolute Neuts (auto) Not Reportable Absolute Nucleated RBC Not Reportable Total Counted 100 Neutrophils % (Manual) 40 L (46-73) % Band Neutrophils % 0 (0-6) % Lymphocytes % (Manual) 28 (18-44) % Monocytes % (Manual) 7 (3-9) % Eosinophils % (Manual) 24 H (1-6) % Basophils % (Manual) 1 (0-1) % Nucleated RBC % Not Reportable Abs Neuts (Manual) 3.32 (1.3-6.7) K/mm3 Abs Lymphs (Manual) 2.32 (1.1-4.5) K/mm3 Abs Monocytes (Manual) 0.58 (0.1-0.90) K/mm3 Absolute Eos (Manual) 1.99 H (0.02-0.50) K/mm3 Abs Basophils (Manual) 0.08 (0-0.1) K/mm3 Platelet Estimate Adequate (Adequate) Schistocytes Not Reportable Sodium 140 (137-145) mmol/L Potassium 3.2 L (3.4-5.0) mmol/L Chloride 105 (98-107) mmol/L Carbon Dioxide 28 (22-30) mmol/L Anion Gap 7 (4-12) mmol/L BUN 11 (9-20) mg/dL Creatinine 1.29 (0.7-1.3) mg/dL Estim Creat Clear Calc 85 ml/min Estimated GFR 60 (59 - ) Glucose 152 H (65-110) mg/dL Calculated Osmolality 292 (285-295) mOsm/kg Calcium 8.7 (8.4-10.2) mg/dL Total Bilirubin 1.0 (0.2-1.3) mg/dL AST 31 (17-59) U/L ALT 42 (6-50) U/L Alkaline Phosphatase 57 (38-126) U/L Total Protein 6.9 (6.3-8.2) g/dL Albumin 4.3 (3.5-5.1) g/dL Imaging Data Attestation: I personally reviewed and interpreted this imaging study as follows: Critical Care Time Critical Care Time Critical Care Time: Yes Total Critical Care Time: 30 Discharge Plan Discharge Clinical Impression: Allergic reaction Qualifiers: Encounter type: initial encounter Qualified Code(s): T78.40XA - Allergy, unspecified, initial encounter Patient Disposition: Home Condition: Stable Instructions: Food Allergy (ED) Additional Instructions: please follow-up with primary doctor in the next week. Come back to the ER for any return of symptoms. Use the EpiPen as needed. Use the prednisone for up to 3 days to resolve symptoms. Use Benadryl 25 mg 3 to 4 times a day as needed for itching for continued symptoms. Patient Language: Armenian Prescriptions: New epinephrine [EpiPen 2-Michael] 0.3 mg/0.3 mL auto-injector 0.3 mg IM Q5-15M PRN (Reason: hypersensitivity reaction) Qty: 2 0RF Rx Instructions: do not exceed 3 doses per episode prednisone 20 mg tablet 40 mg PO DAILY 3 Days Qty: 6 0RF No Action omeprazole 40 mg capsule,delayed release(DR/EC) 40 mg PO DAILY Qty: 90 1RF losartan 100 mg tablet 100 mg PO DAILY Qty: 90 1RF tamsulosin 0.4 mg capsule 0.4 mg PO DAILY Qty: 90 1RF acetaminophen 325 mg Tablet 650 mg PO Q4H PRN (Reason: Mild Pain (1-3) Or Fever) Qty: 60 0RF alpha lipoic acid 200 mg PO DAILY aspirin 81 mg tablet,delayed release (DR/EC) 81 mg PO DAILY allopurinol 200 mg tablet 200 mg PO DAILY Qty: 90 1RF Follow-up/Referrals: Michelle Devlin, PAAvelinoC [Primary Care Provider] - Time of Disposition: 22:25
--- OUTSIDE RECORDS SUMMARY | 2025-01-27 21:12 | XMS_ITS | Clinical Summary ---
Author Organization [facility] Address [address] [place] [address] Care Team Providers Care Porcelain Turner Name Role Phone Shandra Haddad MD Primary Care Provider +1- [phone] Allergies Active Allergy Reactions Criticality Noted Date [...] drink = 0.6 oz pur e alcohol) [facility] Utilities Answer Date Recorded In the past 12 months has th e [employer], [employer], oil, or water [employer] threatened to shut off services in your [...] any time in the past 12 m [facility], were you homeless or living in a retirement (including now)? No 06/29/2024 Sex and Gender [...] this topic Medical Devices Implanted Type Area Banana Handler Device Identifier Shelf Expiration Date Model / Serial / Lot Stent Ureteral [place] Sci Contour 6fr X 26cm - [id number] Implanted:Qty: 1 on 06/29/2024 by Cam Hills MD at [facility] Stent Right: Ureter [employer] [id number] 03/17/2027 [id number] 30 / / [id number] Stent Ureteral [place] Sci Contour 6fr X 26cm - [id number] Implanted:Qty: 1 on 07/20/2024 by Cam Hills MD at [facility] Stent Right: Ureter [employer] [id number] 02/21/2027 [id number] 30 / / [id number] Insurance Social Tools Social Tools OPEN ACCESS [facility] Advance Directives * Full Code (Latest Code Status on File) Date Activated Date Inactivated Comments 06/29/2024 4:52 AM 06/30/2024 3:51 PM Care Teams Porcelain Turner Relationship Specialty Start Date End Date Shandra Haddad MD [address] [facility] [address] [place] [address] PCP - General FAMILY PRACTICE 06/28/24
--- NOTE | 2025-01-27 21:19 | ECG_ITS ---
Test Date: 2025-01-27 21:28:56 Measurements Intervals [place] Rate: 81 P: 15 LA: 172 QRS: -35 QRSD: 129 T: 42 QT: 386 QTc: 449 Interpretive Statements SINUS RHYTHM LEFT AXIS DEVIATION [QRS AXIS < -30] MODERATE INTRAVENTRICULAR CONDUCTION DELAY [110+ ms QRS DURATION] No previous ECG available for comparison Electronically Signed On 01-27-2025 21:54:17 CDT by Joe Esteban M.D.
[2025-01-27 21:40] LABS: Hemoglobin 14.6 g/dL (14.0-18.0); Mean Corpuscular Hemoglobin 31.2 pg (27.0-31.0); Mean Corpuscular Volume 91.9 fL (78.0-102.0); Mean Platelet Volume 10.1 fl (8.7-11.0); Platelet Count Result 198 K/mm3 (150-420); Red Blood Count 4.68 M/mm3 (4.70-6.10); Red Cell Distribution Width 12.5 % (11.6-14.4); White Blood Count 8.3 K/mm3 (4.8-10.8)
[2025-01-27 21:55] LABS: Alanine Aminotransferase 42 U/L (6-50); Albumin Level 4.3 g/dL (3.5-5.1); Alkaline Phosphatase 57 U/L (38-126); Anion Gap 7 mmol/L (4-12); Aspartate Amino Transferase 31 U/L (17-59); Blood Urea Nitrogen 11 mg/dL (9-20); Calcium 8.7 mg/dL (8.4-10.2); Carbon Dioxide 28 mmol/L (22-30); Chloride 105 mmol/L (98-107); Estimated CRCL calculation 85 ml/min; Estimated Glomerular Filt Rate 60; Glucose 152 mg/dL (65-110); Osmolality Calculated 292 mOsm/kg (285-295); Potassium 3.2 mmol/L (3.4-5.0); Sodium 140 mmol/L (137-145); Total Protein 6.9 g/dL (6.3-8.2)
[2025-01-27 22:01] LABS: Band Neutrophils Percent 0 % (0-6); Basophils Absolute Manual 0.08 K/mm3 (0-0.1); Basophils Percent Manual 1 % (0-1); Eosinophils Absolute Manual 1.99 K/mm3 (0.02-0.50); Eosinophils Percent Manual 24 % (1-6); Lymphocytes Absolute Manual 2.32 K/mm3 (1.1-4.5); Lymphocytes Percent Manual 28 % (18-44); Monocytes Absolute Manual 0.58 K/mm3 (0.1-0.90); Monocytes Percent Manual 7 % (3-9); Neutrophils Absolute Manual 3.32 K/mm3 (1.3-6.7); Neutrophils Percent Manual 40 % (46-73); Platelet Estimate Adequate (Adequate); Total Cells Counted 100
== END 2025-01-28 00:01 | disposition home or self-care (01) ==
PROVIDERS: Emergency Provider Emergency Medicine; PCP Physician Assistant
DX: T78.40XA Allergy, unspecified, initial encounter (principal); I10 Essential (primary) hypertension
CPT/HCPCS: 36415; 71045; 80053; 85025; 93005; 96372; 96374; 96375; 99284; J0171; J1200; J2919

== ENCOUNTER 2025-03-01 16:17 | Outpatient (CLI) | payer OTHER, SELFPAY ==
[2025-03-01 16:38] LABS: Basophils Percent Auto 0.6 % (0.2-1.2); Eosinophils Absolute Auto 1.1 K/mm3 (0-0.3); Eosinophils Percent Auto 15.8 % (0-4.4); Hematocrit 46.2 % (42.0-52.0); Hemoglobin 15.8 g/dL (14.0-18.0); Immature Granulocyte Absolute 0.01 K/mm3 (0.00-0.031); Immature Granulocyte Percent A 0.1 % (0-0.5); Lymphocytes Absolute Auto 1.69 K/mm3 (0.9-3.2); Lymphocytes Percent Auto 24.5 % (18.3-44.2); Mean Corpuscular HGB Conc 34.2 g/dl (32-36); Mean Corpuscular Volume 90.6 fl (80-100); Mean Platelet Volume 10.6 fl (7.4-10.4); Monocytes Absolute Auto 0.4 K/mm3 (0.1-0.6); Monocytes Percent Auto 5.4 % (2.6-8.5); Neutrophils Absolute Auto 3.7 K/mm3 (1.3-6.7); Neutrophils Percent Auto 53.6 % (45.5-73.1); Platelet Count Result 227 k/mm3 (150-375); Red Cell Distribution Width 12.7 % (11.5-14.5); White Blood Count 6.9 K/mm3 (4.5-10.0)
[2025-03-01 16:57] LABS: Alanine Aminotransferase 50 U/L (6-50); Albumin Level 4.8 g/dL (3.5-5.1); Alkaline Phosphatase 68 U/L (38-126); Amylase 75 U/L (30-110); Anion Gap 9 mmol/L (4-12); Aspartate Amino Transferase 41 U/L (17-59); Bilirubin,Total 1.1 mg/dL (0.2-1.3); Blood Urea Nitrogen 12 mg/dL (9-20); Calcium 9.7 mg/dL (8.4-10.2); Carbon Dioxide 27 mmol/L (22-30); Chloride 104 mmol/L (98-107); Estimated Glomerular Filt Rate 59; Glucose 98 mg/dL (65-110); Lipase 93 U/L (23-300); Potassium 4.1 mmol/L (3.4-5.0); Sodium 140 mmol/L (137-145); Total Protein 8.3 g/dL (6.3-8.2)
== END 2025-03-01 16:18 | disposition home or self-care (01) ==
LOC: ANHLAB 16:19
PROVIDERS: PCP Family Medicine; Visit Provider Student in an Organized Health Care Education/Training Program
DX: R10.32 Left lower quadrant pain (principal)
CPT/HCPCS: 36415; 80053; 82150; 83690; 85025

== ENCOUNTER 2025-05-11 09:38 | Emergency (ER) | payer OTHER, SELFPAY ==
--- NOTE | ~2025-05-11 | CT_ITS ---
EXAMINATION: CT abdomen pelvis wo con DATE: 05/11/2025 10:15 INDICATION: Left-sided abdominal pain and burning TECHNIQUE: Computed tomography (CT) of the abdomen and pelvis was performed without intravenous contrast. Automated exposure control and iterative reconstruction technique were employed. The dose-length product was 1589.09 mGy-cm. COMPARISON: CT dated 06/09/24 FINDINGS: Calcified left lower lobe nodule consistent with old granulomatous disease. Unchanged peripheral pleural-parenchymal scarring in the dependent right lower lobe. No new airspace opacities, pulmonary edema or pleural effusion. Heart size is normal. No pericardial effusion. Persistent mild diffuse wall thickening in the visualized mid to distal esophagus. Diffuse hepatic steatosis. Gallbladder, spleen, pancreas and bilateral adrenal glands are normal. Couple cysts at the upper pole the right kidney the larger measuring 5.8 cm.. Bilateral nonobstructing nephrolithiasis with 4 stones at the right kidney measuring up to 5 mm and 5 stones at the left kidney measuring up to 6 mm no ureteral stones or hydronephrosis. Bladder is normal. Mild diverticulosis along the sigmoid colon without adjacent inflammatory change to suggest diverticular colitis. Small bowel and appendix are normal. Mild increased fat in the inguinal canals versus small bilateral fat-containing inguinal hernias. No free intraperitoneal gas or fluid. No pathologically enlarged abdominal or pelvic lymphadenopathy. Mild thoracic and lumbar spondylosis with no change in multiple chronic compression fractures in the lower thoracic spine. IMPRESSION: 1. Bilateral nonobstructing nephrolithiasis. No acute intra-abdominal/pelvic process. 2. Moderate sigmoid diverticulosis without diverticulitis. 3. Persistent diffuse mild wall thickening of the mid to distal esophagus which could be seen with esophagitis including secondary to reflux. Reviewed, dictated and finalized at location A. IMPRESSION: 1. Bilateral nonobstructing nephrolithiasis. No acute intra-abdominal/pelvic pr ocess. 2. Moderate sigmoid diverticulosis without diverticulitis. 3. Persistent diffuse mild wall thickening of the mid to distal esophagus which could be seen with esophagitis including secondary to reflux.
[2025-05-11 09:49] VITALS: BP 157/100; PULSE 85; RESP 20; TEMP 36.6; O2SAT 100
--- OUTSIDE RECORDS SUMMARY | 2025-05-11 10:07 | XMS_ITS | Clinical Summary ---
Author Organization [facility] Address [address] [place] [address] Care Team Providers Care Evening Sitter Name Role Phone Shandra Haddad MD Primary Care Provider +1- [phone] Allergies Active Allergy Reactions Criticality Noted Date [...] drink = 0.6 oz pur e alcohol) [facility] Utilities Answer Date Recorded In the past 12 months has th e [employer], [employer], oil, or water [employer] threatened to shut off services in your [...] any time in the past 12 m [facility], were you homeless or living in a [facility] (including now)? No 06/29/2024 Sex and Gender [...] 10:11 AM CDT Height 180.3 cm (5' 11) 07/20/2024 10:11 AM CDT Body Mass Index [...] this topic Medical Devices Implanted Type Area Shaping Machine Tender Device Identifier Shelf Expiration Date Model / Serial / Lot Stent Ureteral [place] Sci Contour 6fr X 26cm - [id number] Implanted:Qty: 1 on 06/29/2024 by Cam Hills MD at [facility] Stent Right: Ureter [employer] [id number] 03/17/2027 [id number] 30 / / [id number] Stent Ureteral [place] Sci Contour 6fr X 26cm - [id number] Implanted:Qty: 1 on 07/20/2024 by Cam Hills MD at [facility] Stent Right: Ureter [employer] [id number] 02/21/2027 [id number] 30 / / [id number] Insurance [employer] OPEN ACCESS [facility] Advance Directives * Full Code (Latest Code Status on File) Date Activated Date Inactivated Comments 06/29/2024 4:52 AM 06/30/2024 3:51 PM Care Teams Evening Sitter Relationship Specialty Start Date End Date Shandra Haddad MD [address] [facility] [address] [place] [address] PCP - General FAMILY PRACTICE 06/28/24
--- OUTSIDE RECORDS SUMMARY | 2025-05-11 10:07 | XMS_ITS | Clinical Summary ---
Author Organization [facility] [address] Address [address] [place] [address] Care Team Providers Care Data Entry Analyst Name Role Phone Sukhdev Cullen MD Primary Care Provider Allergies No known active allergies Encounters Date Type Department Care Team Description 04/17/2025 4:15 PM CDT - 04/17/2025 11:59 PM CDT Hospital Encounter [address] [address] [place] [place] Discharge Disposition: Discharge to home or self care 04/14/[address] [address] Chepe Burgos from Last 3 Months Social History Tobacco Use Types Packs/Day Years Used Date Smoking Tobacco: Never Assessed Personal Safety Answer Date Recorded Have you ever been in or are you currently in a harmful physical or emotional relationship or is someone making you feel afraid or unsafe? 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 Gender Identity Not on file Sexual Orientation Not on file Last Filed Vital Signs Vital Sign Reading Time Taken Comments Blood Pressure 127/97 05/18/2024 6:43 PM CDT Pulse 96 05/18/2024 6:43 PM CDT Temperature 36.9 C (98.4 F) 05/18/2024 6:43 PM CDT Respiratory Rate 16 05/18/2024 6:43 PM CDT Oxygen Saturation 97% 05/18/2024 6:43 PM CDT Inhaled Oxygen Concentration - - Weight 127.9 kg (282 lb) 05/18/2024 6:43 PM CDT Height 180.3 cm (5' 11) 05/18/2024 6:43 PM CDT Body Mass Index 39.33 05/18/2024 6:43 PM CDT Plan of Treatment Health Maintenance Due Date Last Done Comments Colon Cancer Screening-Colonoscopy 1977 Depression Screening 1977 Hepatitis C Screening 1977 DTaP/Tdap/Td Vaccine (1 - Tdap) 1988 Hepatitis B Screening 1995 Regular Well Visit/Exam 18-64 1995 Influenza Vaccine (#1) 2025 Pneumococcal vaccine <65 Aged Out No longer eligible based on patient's age to complete this topic Procedures Procedure Name Priority Date/Time Associated Diagnosis Comments CT ABDOMEN PELVIS WO CONTRAST Schedule Routine, Read Routine (OP Routine) 04/17/2025 5:02 PM CDT Calculus of kidney from Last 3 Months Results * CT Abdomen Pelvis WO Contrast (04/17/2025 5:02 PM CDT) Anatomical Region Laterality Modality Body N/A Computed Tomogra phy 04/24/2025 5:37 PM CDT Narrative 04/24/2025 5:38 PM CDT EXAM DESCRIPTION: CT ABDOMEN PELVIS WO CONTRAST REASON FOR STUDY: N20.0,592.0 Bilateral flank pain and difficulty urinating since July. Pt had stones removed in July with stents placed, stent was removed and then pain began. TECHNIQUE: CT scan of the abdomen and pelvis performed without intravenous and without oral contrast using helical scanning technique. Reconstructed coronal and sagittal MPR images reviewed. All images stored on PACS. Automated exposure control was used as a dose optimization technique for this examination. COMPARISON: None FINDINGS: The sensitivity for detection of visceral lesions is diminished without the use of intravenous contrast. LOWER CHEST: Atelectasis or scarring in the medial right lower lobe. LIVER: Diffuse hepatic steatosis. Focal fatty sparing at the gallbladder fossa. GALLBLADDER: No radiodense gallstones. SPLEEN: Normal length. PANCREAS: No peripancreatic inflammation or fluid collection. ADRENALS: No adrenal mass. KIDNEYS/URINARY TRACT: No hydronephrosis. There are nonobstructing bilateral renal calculi. There is a renal cyst. GI: No bowel obstruction. Normal appendix. There are scattered colonic diverticula without acute diverticulitis. PERITONEUM: No ascites or free air. VASCULATURE: No abdominal aortic aneurysm. MUSCULOSKELETAL: No acute skeletal abnormality. OTHER: Small fat containing bilateral groin hernias. IMPRESSION: 1. No acute findings. 2. Bilateral nephrolithiasis. 3. Hepatic steatosis. THIS IS AN ELECTRONICALLY VERIFIED FINAL REPORT 04/24/2025 5:38 PM - Electronically signed by Yovanny CERVANTES JR Report ID: [id number] Reading Location: [id number] Procedure Note Yovanny Chow MD - 04/24/2025 EXAM DESCRIPTION: CT ABDOMEN PELVIS WO CONTRAST REASON FOR STUDY: N20.0,592.0 Bilateral flank pain and difficulty urinating since July. Pt hadstones removed in July with stents placed, stent was removed and then painbegan. TECHNIQUE: CT scan of the abdomen and pelvis performed without intravenousand without oral contrast using helical scanning technique. Reconstructed coronal and sagittal MPR images reviewed. All images stored on PACS. Automated exposure control was used as a dose optimization technique forthis examination. COMPARISON: None FINDINGS: The sensitivity for detection of visceral lesions is diminished withoutthe use of intravenous contrast. LOWER CHEST: Atelectasis or scarring in the medial right lower lobe. LIVER: Diffuse hepatic steatosis. Focal fatty sparing at the gallbladder fossa. GALLBLADDER: No radiodense gallstones. SPLEEN: Normal length. PANCREAS: No peripancreatic inflammation or fluid collection. ADRENALS: No adrenal mass. KIDNEYS/URINARY TRACT: No hydronephrosis. There are nonobstructingbilateral renal calculi. There is a renal cyst. GI: No bowel obstruction. Normal appendix. There are scatteredcolonic diverticula without acute diverticulitis. PERITONEUM: No ascites or free air. VASCULATURE: No abdominal aortic aneurysm. MUSCULOSKELETAL: No acute skeletal abnormality. OTHER: Small fat containing bilateral groin hernias. IMPRESSION: 1. No acute findings. 2. Bilateral nephrolithiasis. 3. Hepatic steatosis. THIS IS AN ELECTRONICALLY VERIFIED FINAL REPORT 04/24/2025 5:38 PM - Electronically signed by Yovanny Chow M.D. JR: Report ID: [id number] Reading Location: [id number] [facility] Jose Ford MD IMG CT PROCEDURES Final Result from Last 3 Months Insurance Care Teams Data Entry Analyst Relationship Specialty Start Date End Date Sukhdev Cullen MD [address] [place] [address] PCP - General Family Medicine 03/28/25
[2025-05-11 10:22] LABS: Hematocrit 43.2 % (42.0-52.0); Hemoglobin 14.9 g/dL (14.0-18.0); Immature Granulocyte Percent A 0.3 % (0-0.5); Lymphocytes Absolute Auto 1.50 K/mm3 (0.9-3.2); Mean Corpuscular HGB Conc 34.5 g/dl (32-36); Mean Corpuscular Hemoglobin 31.5 pg (26-34); Mean Corpuscular Volume 91.3 fl (80-100); Nucleated Red Blood Cells Absolute Auto 0.000 K/mm3 (0.0-0.012); Nucleated Red Blood Cells Perc 0.0 % (0.0-0.2); Platelet Count Result 189 k/mm3 (150-375); Red Blood Count 4.73 M/mm3 (4.6-6.20); White Blood Count 7.0 K/mm3 (4.5-10.0)
[2025-05-11] MEDS: MORPHINE SULFATE (*CRX) 4 MG/ML INJ IV PUSH (10:23)
[2025-05-11] MEDS: ONDANSETRON INJ 4 MG/2 ML VIAL IV PUSH (10:23)
[2025-05-11] MEDS: FAMOTIDINE 20 MG/2 ML VIAL IV PUSH (10:23)
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
[2025-05-11 10:45] LABS: Alanine Aminotransferase 57 U/L (6-50); Albumin Level 4.5 g/dL (3.5-5.1); Alkaline Phosphatase 73 U/L (38-126); Anion Gap 7 mmol/L (4-12); Aspartate Amino Transferase 47 U/L (17-59); Bilirubin,Total 1.5 mg/dL (0.2-1.3); Blood Urea Nitrogen 10 mg/dL (9-20); Calcium 9.5 mg/dL (8.4-10.2); Carbon Dioxide 29 mmol/L (22-30); Chloride 102 mmol/L (98-107); Estimated CRCL calculation 102 ml/min; Estimated Glomerular Filt Rate > 60; Glucose 94 mg/dL (65-110); Lipase 143 U/L (23-300); Potassium 3.9 mmol/L (3.4-5.0); Sodium 138 mmol/L (137-145); Total Protein 7.6 g/dL (6.3-8.2)
[2025-05-11 10:49] VITALS: BP 139/100; PULSE 75; RESP 17; O2SAT 98
[2025-05-11 10:52] LABS: Add Urine Microscopic? NO; Appearance Urine Clear (Clear); Glucose Urine UA Negative (Negative); Leukocyte Esterase Ur Negative LEU/UL (Negative); Nitrate Urine Negative (Negative); Specific Grav Ur 1.015 (1.001-1.035)
--- OUTSIDE RECORDS SUMMARY | 2025-05-11 11:19 | XMS_ITS | Clinical Summary ---
Author Organization [facility] [address] Address [address] [place] [address] Care Team Providers Care Planning Management It Specialist Name Role Phone Sukhdev Cullen MD Primary Care Provider Allergies No known active allergies Encounters Date Type Department Care Team Description 04/17/2025 4:15 PM CDT - 04/17/2025 11:59 PM CDT Hospital Encounter [address] [address] Calculus of kidney Discharge Disposition: Discharge to home or self care 04/14/[address] [address] Chepe Burgos from Last 3 Months Social [...] on file 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 JR: Report ID: [id number] Reading Location: [id number] [facility] Jose Ford MD IMG CT PROCEDURES Final Result from Last 3 Months Insurance Care Teams Planning Management It Specialist Relationship Specialty Start Date End Date Sukhdev Cullen MD [address] [place] [address] PCP - General Family Medicine 03/28/25
--- OUTSIDE RECORDS SUMMARY | 2025-05-11 11:19 | XMS_ITS | Clinical Summary ---
Author Organization [facility] Address [address] [place] [address] Care Team Providers Care Quality System Manager Name Role Phone Shandra Haddad MD Primary Care Provider +1- [phone] Allergies Active Allergy Reactions Criticality Noted Date [...] drink = 0.6 oz pur e alcohol) [facility] Utilities Answer Date Recorded In the past 12 months has th e [employer], [employer], oil, or water [employer] threatened to shut off services in your [...] any time in the past 12 m [facility], were you homeless or living in a assisted (including now)? No 06/29/2024 Sex and Gender [...] this topic Medical Devices Implanted Type Area Grader Meat Device Identifier Shelf Expiration Date Model / Serial / Lot Stent Ureteral [place] Sci Contour 6fr X 26cm - [id number] Implanted:Qty: 1 on 06/29/2024 by Cam Hills MD at [facility] Stent Right: Ureter [employer] [id number] 03/17/2027 [id number] 30 / / [id number] Stent Ureteral [place] Sci Contour 6fr X 26cm - [id number] Implanted:Qty: 1 on 07/20/2024 by Cam Hills MD at [facility] Stent Right: Ureter [employer] [id number] 02/21/2027 [id number] 30 / / [id number] Insurance [employer] OPEN ACCESS [facility] Advance Directives * Full Code (Latest Code Status on File) Date Activated Date Inactivated Comments 06/29/2024 4:52 AM 06/30/2024 3:51 PM Care Teams Quality System Manager Relationship Specialty Start Date End Date Shandra Haddad MD [address] [facility] [address] [place] [address] PCP - General FAMILY PRACTICE 06/28/24
[2025-05-11] MEDS: KETOROLAC 30 MG/ML VIAL (*BKC) IV PUSH (11:21)
[2025-05-11 12:12] VITALS: BP 131/85; PULSE 82; RESP 15; O2SAT 97
== END 2025-05-11 12:16 | disposition home or self-care (01) ==
PROVIDERS: Emergency Provider Physician Assistant; PCP Family Medicine
DX: S39.011A Strain of muscle, fascia and tendon of abdomen, initial encounter (principal); K20.90 Esophagitis, unspecified without bleeding; I10 Essential (primary) hypertension; K21.9 Gastro-esophageal reflux disease without esophagitis; M10.9 Gout, unspecified; R73.03 Prediabetes; E66.9 Obesity, unspecified; Z68.39 Body mass index [BMI] 39.0-39.9, adult; F17.220 Nicotine dependence, chewing tobacco, uncomplicated; Z87.442 Personal history of urinary calculi; Z79.82 Long term (current) use of aspirin; Z79.899 Other long term (current) drug therapy; K57.90 Diverticulosis of intestine, part unspecified, without perforation or abscess without bleeding; N20.0 Calculus of kidney; X50.0XXA Overexertion from strenuous movement or load, initial encounter
CPT/HCPCS: 36415; 74176; 80053; 81003; 83690; 85025; 96374; 96375; 99284; J1885; J2270; J2405

== ENCOUNTER 2025-06-10 12:31 | Outpatient (CLI) | payer OTHER, SELFPAY ==
--- OUTSIDE RECORDS SUMMARY | 2025-06-10 12:34 | XMS_ITS | Clinical Summary ---
Author Organization [facility] Address [address] [place] [id number] Care Team Providers Care Manager Strategic Development Name Role Phone Shandra Haddad MD Primary Care Provider [phone] Allergies Active Allergy Reactions Criticality Noted Date [...] drink = 0.6 oz pur e alcohol) [facility] Utilities Answer Date Recorded In the past 12 months has th e [employer], [employer], oil, or water tribr threatened to shut off services in your [...] any time in the past 12 m [facility], were you homeless or living in [...] - 19+ 3-dose series) 1996 COVID-19 Vaccine (2024-2 6 season) 2025 10/14/2021, 03/20/2021, 02/27/2021 Meningococcal B Vaccine Aged [...] this topic Medical Devices Implanted Type Area Acquisition Marketing Manager Device Identifier Shelf Expiration Date Model / Serial / Lot Stent Ureteral [place] [employer] Contour 6fr X 26cm - [id number] Implanted:Qty: 1 on 06/29/2024 by Cam Hills MD at [facility] Stent Right: Ureter [employer] [id number] 03/17/2027 [id number] 30 / / [id number] Stent Ureteral [place] [employer] Contour 6fr X 26cm - [id number] Implanted:Qty: 1 on 07/20/2024 by Cam Hills MD at [facility] Stent Right: Ureter [employer] [id number] 02/21/2027 [id number] 30 / / [id number] Insurance [employer] [facility] Advance Directives * Full Code (Latest Code Status on File) Date Activated Date Inactivated Comments 06/29/2024 4:52 AM 06/30/2024 3:51 PM Care Teams Manager Strategic Development Relationship Specialty Start Date End Date Shandra Haddad MD [address] [facility] [address] [place] [address] PCP - General FAMILY PRACTICE 06/28/24
--- OUTSIDE RECORDS SUMMARY | 2025-06-10 12:34 | XMS_ITS | Clinical Summary ---
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 JR: Report ID: [id number] Reading Location: [id number] [facility] Emergency Department Jose Ford MD IMG CT PROCEDURES Final Result from Last 3 Months Insurance Care Teams Package Winder Relationship Specialty Start Date End Date Sukhdev Cullen MD [address] [place] [address] PCP - General Family Medicine 03/28/25
[2025-06-14 13:09] LABS: Pancreatic Elastase, Fecal 785 (>200)
[2025-06-15 01:07] LABS: Calprotectin, Fecal 10 ug/g (0-120)
== END 2025-06-10 12:32 | disposition home or self-care (01) ==
LOC: ANHLAB 12:32
PROVIDERS: PCP Family Medicine; Visit Provider Nurse Practitioner Family
DX: R19.7 Diarrhea, unspecified (principal)
CPT/HCPCS: 82653; 83993; 87045; 87046; 87427